=== PATIENT | male | born 1945 | race Caucasian/White ===

== ENCOUNTER → 2019-07-13 09:44 | Outpatient (BNVA) | payer OTHER, SELFPAY | PROVIDERS: Family Provider Emergency Medicine Emergency Medical Services; PCP Emergency Medicine Emergency Medical Services; Visit Provider Specialist | DX: G43.711 Chronic migraine without aura, intractable, with status migrainosus (principal) | CPT/HCPCS: 64615; J0585 ==

== ENCOUNTER 2019-08-11 22:22 | Emergency (ER) | payer OTHER, MEDICARE, SELFPAY ==
[2019-08-11 22:26] VITALS: BP 134/97; PULSE 66; RESP 20; O2SAT 98; BMI 31.4
--- NOTE | 2019-08-11 22:43 | W.ED.MEDCLER ---
HPI - Medical Clearance General Chief complaint: Medical Clearance Stated complaint: weak Time Seen by Provider: 08/11/19 22:43 Source: patient Mode of arrival: ambulatory Limitations: no limitations History of Present Illness HPI Narrative: 73 yo m came to the er pov for dizziness. Onset was tonight. Pt states that he MD complaint: other (dizziness) Related Information Home Medications Medication Instructions Recorded Confirmed aspirin 81 mg tablet,delayed 81 mg PO DAILY tab 07/13/19 08/09/19 release furosemide 40 mg tablet 40 mg PO DAILY tab 07/13/19 08/09/19 gabapentin 300 mg capsule 300 mg PO DAILY cap 07/13/19 08/09/19 nitroglycerin 0.4 mg sublingual 0.4 mg SUBLINGUAL Q5M PRN 07/13/19 08/09/19 tablet pantoprazole 40 mg tablet,delayed 40 mg PO DAILY tab 07/13/19 08/09/19 release tamsulosin 0.4 mg capsule 0.4 mg PO DAILY cap 07/13/19 08/09/19 atorvastatin 80 mg tablet 40 mg PO DAILY tab 08/08/19 08/09/19 onabotulinumtoxinA 100 unit 155 unit SUBCUT .q 12 weeks each 08/08/19 08/09/19 solution for injection acetaminophen 500 mg capsule 500 mg PO Q6H PRN 08/09/19 08/09/19 lisinopril 20 mg tablet 20 mg PO DAILY tab 08/09/19 08/09/19 Previous Rx's Medication Instructions Recorded metoprolol succinate 25 mg 12.5 mg PO DAILY 30 Days #15 tab 08/09/19 tablet,extended release 24 hr Allergies Allergy/AdvReac Type Severity Reaction Status Date / Time codeine Allergy Unknown Unknown Verified 07/13/19 10:51 Course Vital Signs Pulse Rate 66 08/11/19 22:26 Respiratory Rate 20 H 08/11/19 22:26 Blood Pressure 134/97 08/11/19 22:26 Pulse Oximetry 98 08/11/19 22:26 Discharge Plan Discharge Prescriptions: No Action Botox 100 unit recon soln 155 unit SUBCUT .q 12 weeks RF: 0 aspirin [Adult Low Dose Aspirin] 81 mg tablet,delayed release (DR/EC) 81 mg PO DAILY RF: 0 furosemide 40 mg tablet 40 mg PO DAILY RF: 0 gabapentin 300 mg capsule 300 mg PO DAILY RF: 0 nitroglycerin [Nitrostat] 0.4 mg tablet, sublingual 0.4 mg SUBLINGUAL Q5M PRNRF: 0 pantoprazole 40 mg tablet,delayed release (DR/EC) 40 mg PO DAILY RF: 0 tamsulosin 0.4 mg capsule 0.4 mg PO DAILY RF: 0 atorvastatin 80 mg tablet 40 mg PO DAILY RF: 0 lisinopril 20 mg tablet 20 mg PO DAILY RF: 0 acetaminophen 500 mg capsule 500 mg PO Q6H PRNRF: 0 metoprolol succinate 25 mg tablet extended release 24 hr 12.5 mg PO DAILY 30 Days Qty: 15 RF: 6
[2019-08-11 22:46] VITALS: BP 159/83; PULSE 57; RESP 16; O2SAT 92
--- NOTE | 2019-08-11 22:48 | PC.NURSE ---
PATIENT STATES HE HAS BEEN HAVING DIZZY SPELLS FOR THE LAST MONTH AND A HALF, STATES HE HAS SEEN DR CATHERINE IN THE LAST WEEK AND WAS ADVISED TO SEE AN ENT. PATIENT STATES HE IS ON A NEW MEDICINE FOR HIGH HEART RATE PRESCRIBED BY DR CATHERINE. PATIENT STATES HE STARTED FEELING VERY WEAK AND DIZZY TODAY AND DECIDED TO COME INTO THE ED.
--- NOTE | 2019-08-11 22:54 | ED_ITS ---
Entered by Nayeli Medrano, acting as scribe for AmeyaSyderic Dewey DO Aug 11, 2019 22:22 HPI - Dizziness General: Chief Complaint: Medical Clearance Stated Complaint: weak Time Seen by Provider: 08/11/19 22:43 Source: patient and family Mode of arrival: ambulatory Limitations: no limitations History of Present Illness: HPI Narrative: 73 yo m came to the er pov for dizziness. Onset was tonight. Pt states that he woke up about 1 1/2 ago to large sound going off in his head. Pt states that this happened a year ago and he lost all of his hearing out of his right ear. Pt states that with this ringing in his ear he has been having dizziness and some nausea. Pt also states that he is having some mile epigastric pain. MD elicited complaint: dizziness, lightheadedness and other (ringing in head and nausea) Timing: intermittent Severity: mild Description: lightheadedness and off-balance History of similar symptoms: Yes Exacerbating factors: nothing Relieving factors: nothing Associated symptoms: Reports change in hearing, nausea and tinnitus; Denies chest pain, chills, ear discharge or palpitations Review of Systems General: Reports: other (negative unless marked) Const: Denies: fever or chills Eyes: Denies: change in vision or blurry vision ENMT: Reports: Change in hearing and tinnitus; Denies: ear discharge Card: Denies: chest pain, palpitations, irregular heart rhythm, edema, swelling of feet/ankles, shortness of breath on exertion or shortness of breath when lying down Resp: Denies: shortness of breath, productive cough, non-productive cough or wheezing GI: Reports: nausea : Denies: difficulty urinating, painful urination, urinary frequency, urinary urgency or blood in urine Musc: Denies: neck pain, back pain, redness or joint warmth Skin/Breast: Denies: rash, itching or redness Neuro: Reports: dizziness Psych: Denies: anxiety, visual hallucinations or auditory hallucinations PFSH ED PFSH: Statuses (acute, chronic, etc) shown below reflect problem list status as previously entered and may not be historically accurate Family History Other Heart disease Stroke Social History (Reviewed 08/11/19 @ 22:57 by Nayeli Morrow Smoking and tobacco status: former smoker History of recent travel: No Physical Exam Const: GENERAL APPEARANCE: well developed ORIENTATION/CONSCIOUSNESS: Yes oriented to person, Yes oriented to place and Yes oriented to time HENMT: COMMON NORMALS: normocephalic, external ears normal and external nose normal HEAD & SCALP: normocephalic; no scalp tenderness FACE & SINUS: normal facial exam NOSE: external nose normal and no nasal discharge EXTERNAL EAR: Yes external ears normal MOUTH: tongue normal TEETH & GINGIVA: no abnormal tooth and associated gingiva THROAT: posterior oropharynx normal; no peritonsillar mass Eye: COMMON NORMALS: PERRL, EOMs intact bilaterally and conjunctivae normal EYELID: eyelids normal CONJUNCTIVA: Yes conjunctivae normal PUPIL: Yes PERRL Neck/C-Spine: COMMON NORMALS: full ROM GENERAL: No tracheal deviation CERVICAL SPINE: Yes normal cervical lordosis and No cervical spine tenderness Chest: COMMONS NORMALS: inspection of chest normal CHEST: No tenderness Resp: COMMON NORMALS: clear to auscultation bilaterally EFFORT & INSPECTION: No tachypneic, No respiratory distress, No retractions, No uses accessory muscles and No tracheal deviation AUSCULTATION: clear to auscultation bilaterally, no rhonchi, no wheezes and lung sounds not diminished Cardio: COMMON NORMALS: regular rate and regular rhythm RATE: regular rate RHYTHM: regular rhythm HEART SOUNDS: no murmurs PERIPHERAL PULSES: radial pulses present GI: INSPECTION: No abdominal distension AUSCULTATION: No hyperactive bowel sounds and No hypoactive bowel sounds PALPATION: No guarding and No rigid PERCUSSION: no dullness to percussion and no tympanic to percussion Neuro: SENSORIUM/ORIENTATION: Yes oriented to person, Yes oriented to place and Yes oriented to time Psych: COMMON NORMALS: mental status grossly normal Skin: COMMON NORMALS: no rashes or lesions noted GENERAL SKIN EXAM: no rashes or lesions noted Course ED course: 73-year-old man with a triad of hearing loss, significant tinnitus, and vertigo. 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 He does not show signs of ac [place] stroke otherwise. His CT is negative. His laboratory is benign. His symptoms are resolved essentially. We will let him go home on meclizine. Vital Signs: Vital signs: Vital Signs Pulse Rate 56 L 08/12/19 02:16 Respiratory Rate 16 08/12/19 02:16 Blood Pressure 126/79 08/12/19 02:16 Pulse Oximetry 93 08/12/19 02:16 MDM - Dizziness Lab Data: Labs: Lab Results 08/11/19 08/11/19 08/11/19 Range/Units 23:06 23:06 23:06 WBC 5.1 (4.0-10.0) 10^3/ uL RBC 4.19 (4.1-5.3) 10^6/u L Hgb 13.5 (11.7-16.6) g/dL Hct 39.3 L (42.0-52.0) % MCV 93.8 (80-94) fL MCH 32.2 (28.0-34.0) pg MCHC 34.4 (30.0-36.0) g/dL RDW 12.4 (12.1-15.1) % Plt Count 205 (130-400) 10^3/c mm MPV 10.0 (7.4-10.4) fL Neut % (Auto) 49.9 % Lymph % (Auto) 38.3 % [place] % (Auto) 9.2 % Eos % (Auto) 1.8 % Baso % (Auto) 0.8 % Neut # (Auto) 2.6 (1.8-7.7) 10^3/u L Lymph # (Auto) 2.0 (0.8-4.8) 10^3/u L [place] # (Auto) 0.5 (0.2-0.9) 10^3/u L Eos # (Auto) 0.1 (0.0-0.8) 10^3/u L Baso # (Auto) 0.0 (0.0-0.1) 10^3/u L Nucleated RBC % (a uto) 0 % Nucleated RBCs # 0.0 /100WBC PT 12.70 (10.5-13.3) SECO NDS INR 0.92 (0.8-1.2) APTT 28.3 (23.9-36.7) SECO NDS Sodium 133 L (136-145) mmol/L Potassium 4.3 (3.5-5.1) mmol/L Chloride 96 L (98-107) mmol/L Carbon Dioxide 23 (22-29) mmol/L Anion Gap 18.3 (5-19) BUN 17 (8-23) mg/dL Creatinine 1.2 (0.7-1.2) mg/dL Glucose 133 H (65-115) mg/dL Calcium 9.7 (8.5-10.5) mg/dL Total Bilirubin 0.5 (0.15-1.2) mg/dL AST 19 (0-40) U/L ALT 16 (0-41) U/L Alkaline Phosphata se 139 H (40-130) IU/L Troponin T Baselin e (0-15) ng/mL Troponin T 120 Min [place] (0-15) ng/mL Delta Troponin T (0-10) ABS# Total Protein 6.8 (6.6-8.7) g/dL Albumin 3.9 (3.5-5.2) g/dL Globulin 2.9 (1.3-4.6) g/dL Urine Color (Yellow) Urine Appearance (CLEAR) Urine pH (5-7) Ur Specific Gravit y (1.005-1.030) Urine Protein (Negative) Urine Glucose (UA) (Normal) Urine Ketones (Negative) Urine Occult Blood (Negative) Urine Nitrate (Negative) Urine Bilirubin (NEGATIVE) Urine Urobilinogen (Negative) mg/dL Ur Leukocyte Sima ase (Negative) Urine Opiates Scre en (Negative) ng/mL Ur Barbiturates Sc reen (Negative) ng/mL Ur Phencyclidine S crn (Negative) ng/mL Ur Amphetamines Sc reen (Negative) ng/mL U Benzodiazepines Scrn (Negative) ng/mL Urine Cocaine Scre en (Negative) ng/mL U Marijuana (THC) Screen (Negative) ng/mL 08/11/19 08/12/19 08/12/19 Range/Units 23:06 00:07 00:07 WBC (4.0-10.0) 10^3/ uL RBC (4.1-5.3) 10^6/u L Hgb (11.7-16.6) g/dL Hct (42.0-52.0) % MCV (80-94) fL MCH (28.0-34.0) pg MCHC (30.0-36.0) g/dL RDW (12.1-15.1) % Plt Count (130-400) 10^3/c mm MPV (7.4-10.4) fL Neut % (Auto) % Lymph % (Auto) % [place] % (Auto) % Eos % (Auto) % Baso % (Auto) % Neut # (Auto) (1.8-7.7) 10^3/u L Lymph # (Auto) (0.8-4.8) 10^3/u L [place] # (Auto) (0.2-0.9) 10^3/u L Eos # (Auto) (0.0-0.8) 10^3/u L Baso # (Auto) (0.0-0.1) 10^3/u L Nucleated RBC % (a uto) % Nucleated RBCs # /100WBC PT (10.5-13.3) SECO NDS INR (0.8-1.2) APTT (23.9-36.7) SECO NDS Sodium (136-145) mmol/L Potassium (3.5-5.1) mmol/L Chloride (98-107) mmol/L Carbon Dioxide (22-29) mmol/L Anion Gap (5-19) BUN (8-23) mg/dL Creatinine (0.7-1.2) mg/dL Glucose (65-115) mg/dL Calcium (8.5-10.5) mg/dL Total Bilirubin (0.15-1.2) mg/dL AST (0-40) U/L ALT (0-41) U/L Alkaline Phosphata se (40-130) IU/L Troponin T Baselin e 12 (0-15) ng/mL Troponin T 120 Min [place] (0-15) ng/mL Delta Troponin T (0-10) ABS# Total Protein (6.6-8.7) g/dL Albumin (3.5-5.2) g/dL Globulin (1.3-4.6) g/dL Urine Color Yellow (Yellow) Urine Appearance Clear (CLEAR) Urine pH 6 (5-7) Ur Specific Gravit y 1.015 (1.005-1.030) Urine Protein Neg (Negative) Urine Glucose (UA) Norm (Normal) Urine Ketones Negative (Negative) Urine Occult Blood Neg (Negative) Urine Nitrate Negative (Negative) Urine Bilirubin Neg (NEGATIVE) Urine Urobilinogen Norm (Negative) mg/dL Ur Leukocyte Sima ase Negative (Negative) Urine Opiates Scre en Negative (Negative) ng/mL Ur Barbiturates Sc reen Negative (Negative) ng/mL Ur Phencyclidine S crn Negative (Negative) ng/mL Ur Amphetamines Sc reen Negative (Negative) ng/mL U Benzodiazepines Scrn Negative (Negative) ng/mL Urine Cocaine Scre en Negative (Negative) ng/mL U Marijuana (THC) Screen Negative (Negative) ng/mL 08/12/19 Range/Units 00:52 WBC (4.0-10.0) 10^3/ uL RBC (4.1-5.3) 10^6/u L Hgb (11.7-16.6) g/dL Hct (42.0-52.0) % MCV (80-94) fL MCH (28.0-34.0) pg MCHC (30.0-36.0) g/dL RDW (12.1-15.1) % Plt Count (130-400) 10^3/c mm MPV (7.4-10.4) fL Neut % (Auto) % Lymph % (Auto) % [place] % (Auto) % Eos % (Auto) % Baso % (Auto) % Neut # (Auto) (1.8-7.7) 10^3/u L Lymph # (Auto) (0.8-4.8) 10^3/u L [place] # (Auto) (0.2-0.9) 10^3/u L Eos # (Auto) (0.0-0.8) 10^3/u L Baso # (Auto) (0.0-0.1) 10^3/u L Nucleated RBC % (a uto) % Nucleated RBCs # /100WBC PT (10.5-13.3) SECO NDS INR (0.8-1.2) APTT (23.9-36.7) SECO NDS Sodium (136-145) mmol/L Potassium (3.5-5.1) mmol/L Chloride (98-107) mmol/L Carbon Dioxide (22-29) mmol/L Anion Gap (5-19) BUN (8-23) mg/dL Creatinine (0.7-1.2) mg/dL Glucose (65-115) mg/dL Calcium (8.5-10.5) mg/dL Total Bilirubin (0.15-1.2) mg/dL AST (0-40) U/L ALT (0-41) U/L Alkaline Phosphata se (40-130) IU/L Troponin T Baselin e (0-15) ng/mL Troponin T 120 Min [place] 12.58 (0-15) ng/mL Delta Troponin T 0.58 (0-10) ABS# Total Protein (6.6-8.7) g/dL Albumin (3.5-5.2) g/dL Globulin (1.3-4.6) g/dL Urine Color (Yellow) Urine Appearance (CLEAR) Urine pH (5-7) Ur Specific Gravit y (1.005-1.030) Urine Protein (Negative) Urine Glucose (UA) (Normal) Urine Ketones (Negative) Urine Occult Blood (Negative) Urine Nitrate (Negative) Urine Bilirubin (NEGATIVE) Urine Urobilinogen (Negative) mg/dL Ur Leukocyte Sima ase (Negative) Urine Opiates Scre en (Negative) ng/mL Ur Barbiturates Sc reen (Negative) ng/mL Ur Phencyclidine S crn (Negative) ng/mL Ur Amphetamines Sc reen (Negative) ng/mL U Benzodiazepines Scrn (Negative) ng/mL Urine Cocaine Scre en (Negative) ng/mL U Marijuana (THC) Screen (Negative) ng/mL Imaging Data^: CT Head: Radiologist's impression: [place] [address] CT Scan Report Signed Patient: Gerson Reid #: [id number] : 4Acct#:[id number] Age/Sex: 73 / MADM Date: 08/11/19 Loc: ERRoom/Bed: Attending Dr: Ordering Provider/Ordering MD: Syd Hou DO Date of Service: 08/11/19 Procedure(s): CT head wo con* [id number] Accession Number(s): [id number] Report Number: [id number] PROCEDURE INFORMATION: Exam: CT Head Without Contrast Exam date and time: 08/11/2019 11:05 PM Age: 73 years old Clinical indication: Dizziness and other: Buzzing in ears; Additional info: Symptoms of acute stroke TECHNIQUE: Imaging protocol: Computed tomography of the head without contrast. Total DLP: 864.16 mGy-cm Radiation optimization: All CT scans at this facility use at least one of these dose optimization techniques: automated exposure control; mA and/or kV adjustment per patient size (includes targeted exams where dose is matched to clinical indication); or iterative reconstruction. COMPARISON: MRI IAC'S w/wo* [id number] 02/01/2018 10:13 AM FINDINGS: Brain: No acute intracranial hemorrhage or mass effect. There is decreased attenuation in the periventricular white matter, likely from microvascular disease. Suspect small old lacunar infarcts in the basal ganglia/internal capsule regions bilaterally. Old infarct in the left frontal white matter. No definite acute infarct by CT. MRI could be more sensitive/specific for detection, and also for distinguishing between old and subacute infarcts, as clinically directed. Ventricles: Ventricle size is normal for age. Bones/joints: No definite acute skull fracture. Sinuses: Included paranasal sinuses are essentially clear. Mastoid air cells: No significant acute finding. Vasculature: Vascular calcifications in the internal carotid arteries. CT/CT head wo con* [id number] IMPRESSION: 1. No acute intracranial hemorrhage or mass effect. 2. Changes of microvascular disease, and old infarcts, details above. 3. No definite acute infarct by CT, see above. 4. Other findings discussed above. Radiation Dose CTDIVOL = (mGy): DLP = 864.16 (mGy-cm) Dictated By:Carlin Link MD Signed By:Carlin Link MDSigned Date/Time:08/11/192345 DD/ 44 Discharge Plan Discharge Patient Disposition: Home, Self-Care Clinical Impression: Vertigo Condition: Stable Prescriptions: New meclizine 25 mg tablet 25 mg PO TID PRN (Reason: dizziness) Qty: 30 RF: 0 No Action Botox 100 unit recon soln 155 unit SUBCUT .q 12 weeks RF: 0 aspirin [Adult Low Dose Aspirin] 81 mg tablet,delayed release (DR/EC) 81 mg PO DAILY RF: 0 furosemide 40 mg tablet 40 mg PO DAILY RF: 0 gabapentin 300 mg capsule 300 mg PO DAILY RF: 0 nitroglycerin [Nitrostat] 0.4 mg tablet, sublingual 0.4 mg SUBLINGUAL Q5M PRNRF: 0 pantoprazole 40 mg tablet,delayed release (DR/EC) 40 mg PO DAILY RF: 0 tamsulosin 0.4 mg capsule 0.4 mg PO DAILY RF: 0 atorvastatin 80 mg tablet 40 mg PO DAILY RF: 0 lisinopril 20 mg tablet 20 mg PO DAILY RF: 0 acetaminophen 500 mg capsule 500 mg PO Q6H PRNRF: 0 metoprolol succinate 25 mg tablet extended release 24 hr 12.5 mg PO DAILY 30 Days Qty: 15 RF: 6 Discharge Orders: Discharge Order (Routine); Ordered 08/12/19 Ordered By: Syd Hou Referrals: Lee Gordon MD [Physician] - 7-10 days Kingston Noble DO [Primary Care Provider] - Discharge Diet: Advance as tolerated Discharge Activity: Increase activity as tolerated Patient Instructions: Vertigo (ED) Activity Restrictions/Additional Instructions: Return for worsening symptoms despite treatment, mental status changes, weakness to one side, other concerning symptoms. Call the ENT surgery office Wednesday morning for a follow-up appointment. Discharge Date/Time: 08/12/19 02:17 Coding Level of Care Code ED Slot Shift Manager for Chg Fwd The documentation recorded by the Mitchell schreiber Stephanie Lyn, accurately reflects the service I personally performed and the decisions made by Ameya kern Jeremy John, DO Aug 11, 2019 22:22
--- NOTE | 2019-08-11 23:02 | XR_ITS ---
WS: [id number] ONE VIEW CHEST HISTORY: 73 years old Male with dizzy AP upright chest comparison 09/20/2016 FINDINGS: Bilateral lower lung zone increased interstitial markings probably unchanged. No pneumothorax or cost ophrenic angle blunting. No definite interval pulmonary parenchymal opacity. Cardiomegaly and pulmona ry venous congestion unchanged. Thoracic aorta atherosclerosis and tortuosity. No subdiaphragmatic fr ee air. Prior cervical spine fusion. Bilateral glenohumeral joint arthrosis. XR/XR chest 1V portable [id number] IMPRESSION: Bilateral lower lung zone increased interstitial markings may be secondary to i nterstitial scarring and/or recurrent interstitial edema or pneumonia. Correlat e clinically. Otherwise, no interval change from 01/31/2016.
--- NOTE | 2019-08-11 23:03 | CTR_ITS ---
PROCEDURE INFORMATION: Exam: CT Head Without Contrast Exam date and time: 08/11/2019 11:05 PM Age: 73 years old Clinical indication: Dizziness and other: Buzzing in ears; Additional info: Symptoms of acute stroke TECHNIQUE: Imaging protocol: Computed tomography of the head without contrast. Total DLP: 864.16 mGy-cm Radiation optimization: All CT scans at this facility use at least one of these dose optimization techniques: automated exposure control; mA and/or kV adjustment per patient size (includes targeted exams where dose is matched to clinical indication); or iterative reconstruction. COMPARISON: MRI IAC'S w/wo* [id number] 02/01/2018 10:13 AM FINDINGS: Brain: No acute intracranial hemorrhage or mass effect. There is decreased attenuation in the periventricular white matter, likely from microvascular disease. Suspect small old lacunar infarcts in the basal ganglia/internal capsule regions bilaterally. Old infarct in the left frontal white matter. No definite acute infarct by CT. MRI could be more sensitive/specific for detection, and also for distinguishing between old and subacute infarcts, as clinically directed. Ventricles: Ventricle size is normal for age. Bones/joints: No definite acute skull fracture. Sinuses: Included paranasal sinuses are essentially clear. Mastoid air cells: No significant acute finding. Vasculature: Vascular calcifications in the internal carotid arteries. CT/CT head wo con* [id number] IMPRESSION: 1. No acute intracranial hemorrhage or mass effect. 2. Changes of microvascular disease, and old infarcts, details above. 3. No definite acute infarct by CT, see above. 4. Other findings discussed above. Radiation Dose CTDIVOL = (mGy): DLP = 864.16 (mGy-cm)
--- NOTE | 2019-08-11 23:04 | ECG_ITS ---
Measurements Intervals [place] Rate: 55 P: 61 OR: 175 QRS: -62 QRSD: 114 T: 12 QT: 440 QTc: 421 SINUS BRADYCARDIA POSSIBLE ANTERIOR MYOCARDIAL INFARCTION , OF INDETERMINATE AGE [30 ms Q WAVE IN V3/V4, OR R < 0.2 mV IN V4] INFERIOR MYOCARDIAL INFARCTION , OF INDETERMINATE AGE [40+ ms Q WAVE AND/OR ST/T ABNORMALITY IN II/aVF] Compared to ECG 09/10/2016 23:00:23 Myocardial infarct finding now present Atrial fibrillation no longer present Aberrant conduction of supraventricular beat(s) no longer present Ventricular premature complex(es) no longer present Incomplete right bundle-branch block no longer present Left anterior fascicular block no longer present ST (T wave) deviation no longer present Electronically Signed On 08-13-2019 0:17:47 DISEASE EDUCATION SPECIALIST by Chely Joiner M.D. [email or web address]
[2019-08-11 23:15] LABS: Basophils % 0.8 %; Eosinophils # 0.1 10^3/uL (0.0-0.8); Eosinophils % 1.8 %; Hematocrit 39.3 % (42.0-52.0); Hemoglobin 13.5 g/dL (11.7-16.6); Lymphocytes % 38.3 %; Mean Corpuscular HGB Conc 34.4 g/dL (30.0-36.0); Mean Corpuscular Hemoglobin 32.2 pg (28.0-34.0); Mean Corpuscular Volume 93.8 fL (80-94); Monocytes # 0.5 10^3/uL (0.2-0.9); Monocytes % 9.2 %; Neutrophils # 2.6 10^3/uL (1.8-7.7); Neutrophils % 49.9 %; Nucleated Red Blood Cells % 0 %; Platelet Count 205 10^3/cmm (130-400); Red Blood Count 4.19 10^6/uL (4.1-5.3); Red Cell Distribution Width 12.4 % (12.1-15.1); White Blood Count 5.1 10^3/uL (4.0-10.0)
[2019-08-11 23:23] LABS: INR 0.92 (0.8-1.2)
[2019-08-11 23:24] LABS: Partial Thromboplastin Time 28.3 SECONDS (23.9-36.7)
[2019-08-11 23:31] LABS: Alanine Aminotransferase 16 U/L (0-41); Albumin Level 3.9 g/dL (3.5-5.2); Alkaline Phosphatase 139 IU/L (40-130); Anion Gap 18.3 (5-19); Aspartate Amino Transferase 19 U/L (0-40); Blood Urea Nitrogen 17 mg/dL (8-23); Calcium 9.7 mg/dL (8.5-10.5); Carbon Dioxide 23 mmol/L (22-29); Chloride 96 mmol/L (98-107); Globulin 2.9 g/dL (1.3-4.6); Glucose 133 mg/dL (65-115); Potassium 4.3 mmol/L (3.5-5.1); Sodium 133 mmol/L (136-145); Total Bilirubin 0.5 mg/dL (0.15-1.2); Total Protein 6.8 g/dL (6.6-8.7)
[2019-08-11 23:36] VITALS: BP 142/83; PULSE 58; RESP 16; O2SAT 93
[2019-08-11 23:36] LABS: Troponin(5th) Baseline 12 ng/mL (0-15)
[2019-08-12 00:08] VITALS: BP 139/76; PULSE 55; RESP 16; O2SAT 93
[2019-08-12 00:24] LABS: Add Urine Microscopic? NO
[2019-08-12 00:27] LABS: Bilirubin Urine Neg (NEGATIVE); Blood Urine Neg (Negative); Glucose Urine UA Norm (Normal); Ketones Urine Negative (Negative); Leukocyte Esterase Urine Negative (Negative); Nitrate Urine Negative (Negative); Protein Urine Neg (Negative); Specific Gravity, Urine 1.015 (1.005-1.030); Urine Appearance Clear (CLEAR); Urine Color Yellow (Yellow); Urobilinogen Urine Norm (Negative); pH Urine 6 (5-7)
[2019-08-12 00:46] LABS: Amphetamines Screen Urine Negative (Negative); Barbiturates Screen Urine Negative (Negative); Benzodiazepines Screen Urine Negative (Negative); Cocaine Screen Urine Negative (Negative); Opiate Screen Urine Negative (Negative); PCP Screen Urine Negative (Negative); THC Screen Urine Negative (Negative)
[2019-08-12 00:48] VITALS: BP 126/86; PULSE 56; RESP 16; O2SAT 95
[2019-08-12 01:16] LABS: Troponin 5 2HR 12.58 ng/mL (0-15); Troponin 5 2HR Delta 0.58 ABS# (0-10)
[2019-08-12 01:46] VITALS: BP 143/86; PULSE 57; RESP 16; O2SAT 94
[2019-08-12] MEDS: meclizine 25 mg tablet PO (02:15)
[2019-08-12 02:16] VITALS: BP 126/79; PULSE 56; RESP 16; O2SAT 93
--- NOTE | 2019-08-15 09:25 | DCPLANNER ---
environmental department manager had message to schedule a follow up appointment for patient with Dr. Gordon, ENT. environmental department manager called the office of Dr. Gordon, spoke with Nallely, gave clinic patients information. Patient has [facility] insurance, cannot schedule a follow up appointment at this time. environmental department manager called [facility], gave her patients name, and the need for follow up with Dr. Gordon. environmental department manager [facility].
--- NOTE | 2019-08-17 10:03 | DCPLANNER ---
Patient has an appointment scheduled for Friday, August 30, 2019 at 9:[address] Gordon. Clinic will call patient with appointment information.
--- NOTE | 2019-09-01 17:30 | DCPLANNER ---
Patient did attend appointment scheduled for 08.30.[address] Gordon.
== END 2019-08-12 02:17 | disposition home or self-care (01) ==
PROVIDERS: Emergency Provider Emergency Medicine; Family Provider Emergency Medicine Emergency Medical Services; PCP Emergency Medicine Emergency Medical Services
DX: R42 Dizziness and giddiness (principal); Z79.82 Long term (current) use of aspirin; Z87.891 Personal history of nicotine dependence
CPT/HCPCS: 70450; 71045; 80053; 80307; 81003; 84484; 85025; 85610; 85730; 93005; 99284; J8597

== ENCOUNTER → 2019-08-30 08:56 | Outpatient (BNVA) | payer OTHER, MEDICARE, SELFPAY | PROVIDERS: Family Provider Emergency Medicine Emergency Medical Services; PCP Emergency Medicine Emergency Medical Services; Visit Provider Otolaryngology | DX: H91.91 Unspecified hearing loss, right ear (principal); H93.11 Tinnitus, right ear; R42 Dizziness and giddiness; J34.89 Other specified disorders of nose and nasal sinuses; Q67.4 Other congenital deformities of skull, face and jaw; R26.89 Other abnormalities of gait and mobility | CPT/HCPCS: 99203; 99214 ==

== ENCOUNTER → 2019-10-26 09:05 | Outpatient (BNVA) | payer OTHER, SELFPAY | PROVIDERS: Family Provider Emergency Medicine Emergency Medical Services; PCP Emergency Medicine Emergency Medical Services; Visit Provider Specialist | DX: G43.711 Chronic migraine without aura, intractable, with status migrainosus (principal) | CPT/HCPCS: 64615; J0585 ==

== ENCOUNTER 2020-01-03 08:14 | Day surgery (SDC) | payer OTHER, SELFPAY ==
[2020-01-02 10:58] VITALS: BMI 30.1
[2020-01-03 09:00] VITALS: BP 127/80; PULSE 75; RESP 18; TEMP 36.3; O2SAT 99
--- NOTE | 2020-01-03 09:15 | ANES.PREANE2 ---
Pre-Anesthetic Assessment Pre-Anesthetic Assessment: Height/Weight: Height 1.78 m Weight 95.254 kg Temp Pulse Resp BP Pulse Ox 97.4 F L 75 18 127/80 99 01/03/20 09:00 01/03/20 09:00 01/03/20 09:00 01/03/20 09:00 01/03/20 09:00 Preop Diagnosis: Colon Polyps Proposed Procedure: Operation Date: 01/03/20 10:00 Proposed Procedures p COLONOSCOPY 73263/Z86.010(Not Applicable) - Aditya Cohn MD Familial anesthetic complications: None Was Beta Frida taken within 24 hours: N/A Last intake: NPO > 8 hrs Social: Social History: No alcohol and No tobacco Exam: Pre-Anes Outpt Exam: alert, oriented x 3, clear to auscultation bilaterally and regular rate & rhythm Airway: Cervical ROM: WNL MP: 3 Additional comments: Multiple missing teeth CV/HEM: CV/HEM: Afib, HTN and [place] Comments: ascending aortic aneurysm Metabolic: Metabolic: Hyperlipidemia Anesthetic Plan: ASA status: 3 Anesthesia: MAC PFSH Anesthesia PFSH: Medical History Ascending aortic aneurysm Deafness in right ear Deviated nasal septum, congenital H/O ventricular tachycardia History of colon polyps History of ST elevation myocardial infarction (STEMI) Hyperlipidemia Imbalance Nasal lesion Sensorineural hearing loss of left ear Surgical History H/O colonoscopy couple of years ago H/O esophagogastroduodenoscopy years ago H/O foot surgery H/O heart artery stent H/O neck surgery History of cervical spinal surgery History of colonoscopy with polypectomy (~2017) S/P cataract surgery S/P foot surgery S/P PTCA (percutaneous transluminal coronary angioplasty) Family History Father Cancer Mother Cancer Other Heart disease Stroke Denies family history of Anesthesia complication Bleeding disorder Social History Smoking and tobacco status: former smoker Alcohol intake: current Alcohol intake frequency: holidays/special occasions only Alcohol type: beer Lives independently: Yes Marital status: Single Current occupational status: retired History of recent travel: No Data Anesthesia Cardiac Studies: No Data to Display
--- NOTE | 2020-01-03 09:42 | W.PM.OPSUD ---
Surgery/Procedure H&P Update DATE OF PROCEDURE: January 03, 2020 DATE H&P PERFORMED: 12/21/19 H&P UPDATE INFORMATION: I have reviewed H&P completed within last 30 days, I have examined patient prior to procedure and No changes to prior documentation PREOP DIAGNOSIS: Colon Polyps PRIMARY INDICATION FOR PROCEDURE: The same PLANNED PROCEDURE: Operation Date: 01/03/20 10:00 Proposed Procedures p COLONOSCOPY [id number]/Z86.010(Not Applicable) - Aditya Cohn MD
[2020-01-03 10:04] VITALS: BP 112/67; PULSE 69; RESP 16; TEMP 36.9; O2SAT 95
--- NOTE | 2020-01-03 10:08 | ANE.PACU2 ---
Inpatient post-anesthesia follow up: Airway intact: Yes Vital signs: Temperature 97.4 F Pulse Rate 75 Respiratory Rate 18 Blood Pressure 127/80 Pulse Oximetry 99 Oxygen Delivery Me thod Room Air Oxygen Flow Rate Fraction of Inspir ed Oxygen Hydration adequate: Yes Nausea and vomiting: No Mental status: Baseline
[2020-01-03] MEDS: sodium chloride 0.9% 1,000 ML 30 ML IV (10:19)
== END 2020-01-03 10:30 | disposition home or self-care (01) ==
PROVIDERS: PCP Emergency Medicine Emergency Medical Services; Visit Provider Surgery
PROC: 0DJD8ZZ Inspection of Lower Intestinal Tract, Via Natural or Artificial Opening Endoscopic (ICD-10-PCS; CPT 45378; principal; 2020-01-03 10:00)
DX: Z12.11 Encounter for screening for malignant neoplasm of colon (principal); Z86.010 Personal history of colon polyps; D12.2 Benign neoplasm of ascending colon; K57.30 Diverticulosis of large intestine without perforation or abscess without bleeding; I25.2 Old myocardial infarction; Z87.891 Personal history of nicotine dependence
CPT/HCPCS: 12345; 45380; 88305; J2704; J7030

== ENCOUNTER → 2020-01-18 08:26 | Outpatient (BNVA) | payer OTHER, SELFPAY | PROVIDERS: Family Provider Emergency Medicine Emergency Medical Services; PCP Emergency Medicine Emergency Medical Services; Visit Provider Specialist | DX: G43.711 Chronic migraine without aura, intractable, with status migrainosus (principal); Z87.891 Personal history of nicotine dependence | CPT/HCPCS: 64615; J0585 ==

== ENCOUNTER → 2020-04-11 08:14 | Outpatient (BNVA) | payer OTHER, SELFPAY | PROVIDERS: Family Provider Emergency Medicine Emergency Medical Services; PCP Emergency Medicine Emergency Medical Services; Visit Provider Specialist | DX: G43.711 Chronic migraine without aura, intractable, with status migrainosus (principal); I25.2 Old myocardial infarction; Z87.891 Personal history of nicotine dependence | CPT/HCPCS: 64615; J0585 ==

== ENCOUNTER → 2020-07-11 08:05 | Outpatient (BNVA) | payer OTHER, SELFPAY | PROVIDERS: Family Provider Emergency Medicine Emergency Medical Services; PCP Emergency Medicine Emergency Medical Services; Visit Provider Specialist | DX: G43.711 Chronic migraine without aura, intractable, with status migrainosus (principal); Z87.891 Personal history of nicotine dependence | CPT/HCPCS: 64615; J0585 ==

== ENCOUNTER → 2020-10-03 08:11 | Outpatient (BNVA) | payer OTHER, SELFPAY | PROVIDERS: Family Provider Emergency Medicine Emergency Medical Services; PCP Emergency Medicine Emergency Medical Services; Visit Provider Specialist | DX: G43.711 Chronic migraine without aura, intractable, with status migrainosus (principal); Z87.891 Personal history of nicotine dependence | CPT/HCPCS: 64615; J0585 ==

== ENCOUNTER → 2020-10-14 11:50 | Outpatient (BNVA) | payer OTHER, SELFPAY | PROVIDERS: Family Provider Emergency Medicine Emergency Medical Services; PCP Emergency Medicine Emergency Medical Services; Referring Provider Emergency Medicine Emergency Medical Services; Visit Provider Specialist | DX: M19.032 Primary osteoarthritis, left wrist (principal) | CPT/HCPCS: 73110 ==

== ENCOUNTER → 2020-12-26 08:02 | Outpatient (BNVA) | payer OTHER, SELFPAY | PROVIDERS: Family Provider Emergency Medicine Emergency Medical Services; PCP Emergency Medicine Emergency Medical Services; Visit Provider Specialist | DX: G43.709 Chronic migraine without aura, not intractable, without status migrainosus (principal); Z87.891 Personal history of nicotine dependence | CPT/HCPCS: 64615; J0585 ==

== ENCOUNTER → 2021-03-27 08:46 | Outpatient (BNVA) | payer OTHER, SELFPAY | PROVIDERS: Family Provider Emergency Medicine Emergency Medical Services; PCP Emergency Medicine Emergency Medical Services; Visit Provider Specialist | DX: G43.709 Chronic migraine without aura, not intractable, without status migrainosus (principal); Z87.891 Personal history of nicotine dependence | CPT/HCPCS: 64615; J0585 ==

== ENCOUNTER → 2021-06-19 07:55 | Outpatient (BNVA) | payer OTHER, SELFPAY | PROVIDERS: Family Provider Emergency Medicine Emergency Medical Services; PCP Emergency Medicine Emergency Medical Services; Visit Provider Specialist | DX: G43.711 Chronic migraine without aura, intractable, with status migrainosus (principal) | CPT/HCPCS: 64615; J0585 ==

== ENCOUNTER → 2021-09-11 07:56 | Outpatient (BNVA) | payer OTHER, SELFPAY | PROVIDERS: Family Provider Emergency Medicine Emergency Medical Services; PCP Emergency Medicine Emergency Medical Services; Visit Provider Specialist | DX: G43.711 Chronic migraine without aura, intractable, with status migrainosus (principal) | CPT/HCPCS: 64615; J0585 ==

== ENCOUNTER → 2021-09-12 09:15 | Outpatient (BNVA) | payer OTHER, SELFPAY | PROVIDERS: Family Provider Emergency Medicine Emergency Medical Services; PCP Emergency Medicine Emergency Medical Services; Visit Provider Internal Medicine Cardiovascular Disease | DX: I25.10 Atherosclerotic heart disease of native coronary artery without angina pectoris (principal); I10 Essential (primary) hypertension; E78.2 Mixed hyperlipidemia | CPT/HCPCS: 99214 ==

== ENCOUNTER → 2021-12-04 07:33 | Outpatient (BNVA) | payer OTHER, SELFPAY | PROVIDERS: Family Provider Emergency Medicine Emergency Medical Services; PCP Emergency Medicine Emergency Medical Services; Visit Provider Specialist | DX: G43.711 Chronic migraine without aura, intractable, with status migrainosus (principal) | CPT/HCPCS: 64615; J0585 ==

== ENCOUNTER → 2022-02-26 07:33 | Outpatient (BNVA) | payer OTHER, SELFPAY | PROVIDERS: Family Provider Emergency Medicine Emergency Medical Services; PCP Emergency Medicine Emergency Medical Services; Visit Provider Specialist | DX: G43.711 Chronic migraine without aura, intractable, with status migrainosus (principal) | CPT/HCPCS: 64615; J0585 ==

== ENCOUNTER → 2022-03-23 13:52 | Outpatient (BNVA) | payer OTHER, SELFPAY | PROVIDERS: Family Provider Emergency Medicine Emergency Medical Services; PCP Emergency Medicine Emergency Medical Services; Visit Provider Internal Medicine Cardiovascular Disease | DX: I25.10 Atherosclerotic heart disease of native coronary artery without angina pectoris (principal); I10 Essential (primary) hypertension | CPT/HCPCS: 99214 ==

== ENCOUNTER → 2022-05-21 07:56 | Outpatient (BNVA) | payer OTHER, SELFPAY | PROVIDERS: Family Provider Emergency Medicine Emergency Medical Services; PCP Emergency Medicine Emergency Medical Services; Visit Provider Specialist | DX: G43.711 Chronic migraine without aura, intractable, with status migrainosus (principal) | CPT/HCPCS: 64615; 95911; J0585 ==

== ENCOUNTER → 2022-08-13 08:03 | Outpatient (BNVA) | payer OTHER, SELFPAY | PROVIDERS: Family Provider Emergency Medicine Emergency Medical Services; PCP Emergency Medicine Emergency Medical Services; Visit Provider Specialist | DX: G43.711 Chronic migraine without aura, intractable, with status migrainosus (principal) | CPT/HCPCS: 64615; J0585 ==

== ENCOUNTER → 2022-09-02 13:39 | Outpatient (BNVA) | payer OTHER, SELFPAY | PROVIDERS: Family Provider Emergency Medicine Emergency Medical Services; PCP Emergency Medicine Emergency Medical Services; Visit Provider Nurse Practitioner Family | DX: I48.91 Unspecified atrial fibrillation (principal); I25.2 Old myocardial infarction; Z79.82 Long term (current) use of aspirin | CPT/HCPCS: 93005; 99214 ==

== ENCOUNTER 2022-09-04 11:56 | Inpatient (IN) | payer OTHER, SELFPAY ==
[2022-09-04] VITALS (86 sets, daily range): BP systolic 82–155; BP diastolic 64–103; PULSE 53–157; RESP 11–33; TEMP 36.5–36.6; O2SAT 86–100; BMI 28.8
--- NOTE | 2022-09-04 12:02 | ED_ITS ---
HPI - SOB/Dyspnea General: Chief Complaint: Arrhythmia/Palpitations Stated Complaint: SOB/ WEAKNESS Time Seen by Provider: 09/04/22 12:01 History of Present Illness: HPI Narrative: Mr. Reid is a 76-year-old gentleman with history of hearing loss, hypertens ion, hyperlipidemia, headaches, CAD, atrial fibrillation presenting to the emergency department due to low blood pressure and high heart rate. He reports feeling with heart rate trouble for a number of weeks now however over the past week he has had marked change with persistent elevated heart rate despite medication. He notes associated chest pressure, exertional dyspnea, lightheadedness. Additionally he has had some dark stools and mild abdominal pain on the left. Overall course of symptoms has persisted. Intensity is moderate to severe. Worse with exertion. No other specific changes in health, exacerbating, or alleviating factors identified. Onset (ago): day(s) Timing: constant Severity: moderate Exacerbating factors: exertion Relieving factors: nothing Known history of: congestive heart failure and other Associated symptoms: Reports abdominal pain, chest pain, dizziness and other Review of Systems General: Reports: 10 or more systems reviewed and unremarkable except in HPI and below Card: Reports: chest pain GI: Reports: abdominal pain Neuro: Reports: dizziness PFS ED PFSH: Medical History Ascending aortic aneurysm Atrial fibrillation Deafness in right ear Deviated nasal septum, congenital H/O ventricular tachycardia History of colon polyps History of nonmelanoma skin cancer History of ST elevation myocardial infarction (STEMI) Hyperlipidemia Imbalance Nasal lesion Sensorineural hearing loss of left ear Surgical History H/O colonoscopy couple of years ago H/O esophagogastroduodenoscopy years ago H/O foot surgery H/O heart artery stent H/O neck surgery History of cervical spinal surgery History of colonoscopy with polypectomy (~2017) History of colonoscopy with polypectomy (~12/2019) S/P cataract surgery S/P foot surgery S/P PTCA (percutaneous transluminal coronary angioplasty) Family History Father Cancer Mother Cancer Other Heart disease Stroke Denies family history of Anesthesia complication Bleeding disorder Social History Smoking and tobacco status: never smoked Alcohol intake: current Alcohol intake frequency: holidays/special occasions only Alcohol type: beer Lives independently: Yes Marital status: Single Current occupational status: retired Physical Exam Const: COMMON NORMALS: alert GENERAL APPEARANCE: cooperative and well developed HENMT: COMMON NORMALS: normocephalic and atraumatic HEAD & SCALP: normocephalic and atraumatic Eye: COMMON NORMALS: conjunctivae normal CONJUNCTIVA: Yes conjunctivae normal SCLERA: sclerae normal Neck/C-Spine: COMMON NORMALS: supple GENERAL: Yes trachea midline Resp: COMMON NORMALS: clear to auscultation bilaterally EFFORT & INSPECTION: Yes able to speak in complete sentences AUSCULTATION: clear to auscultation bilaterally Cardio: RATE: tachycardic RHYTHM: abnormal rhythm irregularly irregular GI: COMMON NORMALS: Soft to palpation PALPATION: Yes Soft to palpation, Yes Tenderness to palpation present (GI) Details: LLQ, No Guarding due to palpation present (GI) and No Rigid due to palpation Extremity: GENERAL: Yes normal exam except as noted and No edema Neuro: COMMON NORMALS: moves all extremities SENSORIUM/ORIENTATION: Yes alert and No Orientation impaired Psych: COMMON NORMALS: mental status grossly normal and Normal thought process present THOUGHT PROCESS: Normal thought process present Course Vital Signs: Vital signs: Vital Signs Temperature 98.7 F 09/06/22 15:00 Pulse Rate 65 09/06/22 15:00 Respiratory Rate 15 09/06/22 12:45 Blood Pressure 128/77 09/06/22 15:00 Pulse Oximetry 97 09/06/22 15:00 Oxygen Delivery Me thod 09/06/22 15:00 Oxygen Flow Rate 2 09/05/22 20:12 MDM - SOB/Dyspnea Medical Decision Making 76-year-old gentleman presenting with shortness of breath and generalized weakness with concern for GI bleed. Exam as above. Patient is nontoxic. Abdominal tenderness without evidence of acute surgical abdomen. EKG demonstrates atrial fibrillation with rapid ventricular response and interv entricular conduction delay, no STEMI. Labs show no leukocytosis, macrocytic anemia is not significantly off from baseline. Metabolic panel without acute derangement to explain symptoms. Negative range 2-hour delta troponin. No evidence of UTI. Chest x-ray with pulmonary vascular congestion. During ED course patient treated with IV fluids, Cardizem, analgesia, and subsequently Cardizem drip for recurrence of uncontrolled rate despite bolus dosing. Most likely etiology of patient's symptoms is pulmonary vascular congestion and atrial fibrillation with rapid ventricular response. The results of ED evaluation were discussed with the patient including plan for admission due to requirement for level of care not available if discharged to prevent significant worsening/deterioration. Patient agreeable with plan. Discussed with hospitalist service who was agreeable to admit patient. Medical Records I reviewed the patient's medical records. Lab Data I reviewed the patient's lab results. 09/06/22 03:50 09/06/22 03:50 Labs/Radiology: Radiology Impressions Chest X-Ray 09/04/22 12:08 IMPRESSION: Imaging findings suggestive of pulmonary congestion. Pneumonia should be excluded clinically. Laboratory Results WBC 5.7 10^3/uL (4.0-10.0) 09/04/22 12: RBC 3.30 10^6/uL (4.1-5.3) L 09/04/22 12:23 Hgb 11.0 g/dL (11.7-16.6) L 09/04/22 12:23 Hct 33.0 % (42.0-52.0) L 09/04/22 12: MCV 100.0 fl (80-94) H 09/04/22 12:23 MCH 33.3 pg (28.0-34.0) 09/04/22 12: MCHC 33.3 g/dL (30.0-36.0) 09/04/22 12: RDW 13.6 % (12.1-15.1) 09/04/22 12:23 Plt Count 218 10^3/cmm (130-400) 09/04/22 12:23 MPV 10.3 fL (7.4-10.4) 09/04/22 12:23 Neut % (Auto) 67.4 % 09/04/22 12:23 Lymph % (Auto) 20.5 % 09/04/22 12:23 Dillon % (Auto) 10.5 % 09/04/22 12:23 Eos % (Auto) 1.0 % 09/04/22 12:23 Baso % (Auto) 0.3 % 09/04/22 12:23 Neut # (Auto) 3.85 10^3/uL (1.8-7.7) 09/04/22 12:23 Lymph # (Auto) 1.2 10^3/uL (0.8-4.8) 09/04/22 12:23 Dillon # (Auto) 0.6 10^3/uL (0.2-0.9) 09/04/22 12:23 Eos # (Auto) 0.1 10^3/uL (0.0-0.8) 09/04/22 12:23 Baso # (Auto) 0.0 10^3/uL (0.0-0.1) 09/04/22 12:23 Nucleated RBC % (auto) 0 % 09/04/22 12: Nucleated RBCs # 0.0 /100WBC 09/04/22 12:23 Sodium 135 mmol/L (136-145) L 09/04/22 12:23 Potassium 4.0 mmol/L (3.5-5.1) 09/04/22 12:23 Chloride 99 mmol/L (98-107) 09/04/22 12:23 Carbon Dioxide 23 mmol/L (22-29) 09/04/22 12:23 Anion Gap 17.0 (5-19) 09/04/22 12:23 BUN 19 mg/dL (8-23) 09/04/22 12:23 Creatinine 1.0 mg/dL (0.7-1.2) 09/04/22 12:23 GFR Calculation Not Reportable 09/04/22 12:23 Glucose 116 mg/dL (65-115) H 09/04/22 12:23 Calculated Osmolality 283 mOsm/kg (285-295) L 09/04/22 12:23 Calcium 8.9 mg/dL (8.5-10.5) 09/04/22 12:23 Magnesium 1.8 mg/dL (1.7-2.3) 09/04/22 12:23 Total Bilirubin 0.5 mg/dL (0.15-1.2) 09/04/22 12:23 AST 12 U/L (0-40) 09/04/22 12:23 ALT 9 U/L (0-41) 09/04/22 12:23 Alkaline Phosphatase 126 U/L (40-130) 09/04/22 12:23 Troponin T Baseline 110 ng/L (0-15) H* 09/04/22 12:23 Troponin T 120 Minute 100.2 ng/L (0-15) H 09/04/22 14:07 Delta Troponin T -9.8 ABS# (0-10) L 09/04/22 14:07 NT-Pro-B Natriuret Pep 2875 pg/mL (0-450) H 09/04/22 12:23 Total Protein 6.5 g/dL (6.6-8.7) L 09/04/22 12:23 Albumin 3.6 g/dL (3.5-5.2) 09/04/22 12: Globulin 2.9 g/dL (1.3-4.6) 09/04/22 12: TSH 1.11 uIU/mL (0.27-4.20) 09/04/22 12:23 Urine Color Yellow (Yellow) 09/04/22 15:52 Urine Appearance Clear (CLEAR) 09/04/22 15:52 Urine pH 5 (5-7) 09/04/22 15:52 Ur Specific [place] 1.020 (1.005-1.030) 09/04/22 15:52 Urine Protein Neg (Negative) 09/04/22 15:52 Urine Glucose (UA) Norm (Normal) 09/04/22 15:52 Urine Ketones Negative (Negative) 09/04/22 15:52 Urine Blood Neg (Negative) 09/04/22 15:52 Urine Nitrate Negative (Negative) 09/04/22 15:52 Urine Bilirubin Neg (Negative) 09/04/22 15:52 Urine Urobilinogen Neg mg/dL (Negative) 09/04/22 15:52 Ur Leukocyte Esterase Negative (Negative) 09/04/22 15:52 Blood Type B Negative 09/04/22 12:26 Rho(D) Type Negative 09/04/22 12:26 Antibody Screen Negative 09/04/22 12:26 Critical Care Time Critical Care Time: Critical Care Time: Yes Total Critical Care Time: 35 Attestation: Due to a high probability of clinically significant, possibly life threatening deterioration, the patient required my highest level of attention and preparedness to intervene emergently and I personally spent this critical care time directly and personally managing the patient. This critical care time included obtaining a history; examining the patient; pulse oximetry; ordering and review of laboratory and imaging studies; arranging urgent treatment with development of a management plan; evaluation of patient's response to treatment; frequent reassessment; and, discussions with other providers as applicable. It was exclusive of separately billable procedures. Primary system involved is cardiac Discharge Plan Discharge Patient Disposition: Admitted As Inpatient Admit Provider: Rekha Morin Clinical Impression: Atrial fibrillation with RVR, Pulmonary edema Condition: Stable Discharge Diet: Usual diet Discharge Activity: Resume usual activity Coding Level of Care Code ED High School Music Director for Oscar Robles
--- NOTE | 2022-09-04 12:08 | XRR_ITS ---
PROCEDURE INFORMATION: Exam: XR Chest Exam date and time: 09/04/2022 12:11 PM Age: 76 years old Clinical indication: Shortness of breath; Prior surgery; Surgery type: Heart stents; Patient HX: History--sob, weakness, tachycardia, cp, pain in upper abd TECHNIQUE: Imaging protocol: Radiologic exam of the chest. Views: 1 view. COMPARISON: CR XR chest 1V portable [id number] 08/11/2019 11:28 PM FINDINGS: Lungs: Low lung volumes. There is increased interstitial markings and haziness of the lungs, which in the setting of cardiomegaly is suggestive of pulmonary congestion. Pneumonia should be excluded clinically. Pleural spaces: Unremarkable. No pleural effusion. No pneumothorax. Heart/Mediastinum: Stable cardiomediastinal silhouette. Bones/joints: Cervical spine fusion hardware noted. XR/XR chest 1V portable [id number] IMPRESSION: Imaging findings suggestive of pulmonary congestion. Pneumonia should be excluded clinically.
--- NOTE | 2022-09-04 12:27 | ECG_ITS ---
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 Measurements Intervals [place] Rate: 133 P: 0 [place]: 0 QRS: -59 QRSD: 122 T: 65 QT: 324 QTc: 483 Interpretive Statements ATRIAL FIBRILLATION WITH RAPID VENTRICULAR RESPONSE LEFT ANTERIOR FASCICULAR BLOCK [QRS AXIS <= -45, QR IN I, RS IN II] POSSIBLE ANTERIOR MYOCARDIAL INFARCTION , OF INDETERMINATE AGE [30 ms Q WAVE IN V3/V4, OR R < 0.2 mV IN V4] INFERIOR MYOCARDIAL INFARCTION , PROBABLY OLD [40+ ms Q WAVE AND/OR ST/T ABNORMALITY IN II/aVF] Compared to ECG 08/11/2019 23:41:16 Left anterior fascicular block now present Sinus bradycardia no longer present Myocardial infarct finding still present Electronically Signed On 09-04-2022 21:44:52 CONTINUITY EDITOR by Yoko Michael M.D. [id number]
[2022-09-04 12:44] LABS: Basophils % 0.3 %; Eosinophils # 0.1 10^3/uL (0.0-0.8); Lymphocytes # 1.2 10^3/uL (0.8-4.8); Lymphocytes % 20.5 %; Mean Corpuscular HGB Conc 33.3 g/dL (30.0-36.0); Mean Corpuscular Hemoglobin 33.3 pg (28.0-34.0); Mean Platelet Volume 10.3 fL (7.4-10.4); Monocytes # 0.6 10^3/uL (0.2-0.9); Monocytes % 10.5 %; Neutrophils # 3.85 10^3/uL (1.8-7.7); Neutrophils % 67.4 %; Nucleated Red Blood Cells % 0 %; Platelet Count 218 10^3/cmm (130-400); Red Cell Distribution Width 13.6 % (12.1-15.1); White Blood Count 5.7 10^3/uL (4.0-10.0)
[2022-09-04] MEDS: dilTIAZem 5 mg/mL SDV 5 mL 20 MG IVP ×2 (12:45→14:08)
[2022-09-04] MEDS: sodium chloride 0.9% 500 ML IV (12:45)
[2022-09-04 13:10] LABS: Troponin(5th) Baseline 110 ng/L (0-15)
[2022-09-04 13:16] LABS: Alanine Aminotransferase 9 U/L (0-41); Albumin Level 3.6 g/dL (3.5-5.2); Alkaline Phosphatase 126 U/L (40-130); Aspartate Amino Transferase 12 U/L (0-40); Blood Urea Nitrogen 19 mg/dL (8-23); Calcium 8.9 mg/dL (8.5-10.5); Carbon Dioxide 23 mmol/L (22-29); Chloride 99 mmol/L (98-107); Globulin 2.9 g/dL (1.3-4.6); Glucose 116 mg/dL (65-115); Magnesium 1.8 mg/dL (1.7-2.3); NT Pro B Type Natriuretic Pept 2875 pg/mL (0-450); Osmolality Calculated 283 mOsm/kg (285-295); Sodium 135 mmol/L (136-145); Thyroid Stimulating Hormone 1.11 uIU/mL (0.27-4.20); Total Bilirubin 0.5 mg/dL (0.15-1.2); Total Protein 6.5 g/dL (6.6-8.7)
[2022-09-04] MEDS: dilTIAZem 100 MG in sodium chloride 0.9% (add-van) 100 ML IV (14:08)
--- NOTE | 2022-09-04 14:35 | ECG_ITS ---
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 Measurements Intervals [place] Rate: 97 P: 0 [place]: 0 QRS: -59 QRSD: 114 T: 15 QT: 379 QTc: 484 Interpretive Statements ATRIAL FIBRILLATION LEFT ANTERIOR FASCICULAR BLOCK [QRS AXIS <= -45, QR IN I, RS IN II] INFERIOR MYOCARDIAL INFARCTION , PROBABLY OLD [40+ ms Q WAVE AND/OR ST/T ABNORMALITY IN II/aVF] Compared to ECG 09/04/2022 12:27:32 No significant changes Electronically Signed On 09-04-2022 22:00:52 MENTAL HEALTH COORDINATOR by Yoko Michael M.D. [id number]
[2022-09-04 14:40] LABS: Troponin 5 2HR Delta -9.8 ABS# (0-10)
[2022-09-04 14:41] LABS: Troponin 5 2HR 100.2 ng/L (0-15)
--- NOTE | 2022-09-04 15:04 | PC.NURSE ---
PT'S SON IN ROOM AND IS AWARE THAT PT IS BEING ADMITTED FOR AFIB ON CARDIZEM DRIP. DOES NOT HAVE ANY QUESTIONS AT THIS TIME.
[2022-09-04] MEDS: fentaNYL 50 mcg/mL INJ 2mL IVP (15:31)
[2022-09-04] MEDS: dilTIAZem 5 mg/mL SDV 5 mL 10 MG IVP (16:09)
--- NOTE | 2022-09-04 17:30 | P.HP_ITS ---
Providers/Chief Complaint Admitting Physician: Rekha Morin MD Primary Care Provider: Kingston Noble DO Chief Complaint: SOB/ WEAKNESS History of Present Illness Chris Reid is a 76 year old male PMHx of HTN, HLD, CAD, recurrent orthostasis and syncope, A-fib with RVR diagnosed on a recent visit with cardiology on September 02, 2022. He was started on Cardizem 30 mg 3 times daily for rate control and Eliquis for anticoagulation. He presented to the emergency room because of complaints of dizziness, several low blood pressure recordings at home with systolic blood pressure between 50 to 60 mmHg. His heart rate at the same time has been high in the 1 60-1 70 range. He has also been complaining of intermittent chest pain over the past week. He is extremely hard of hearing therefore history is limited, his son assists with a lot of the history taking. On arrival at the ER patient was in A-fib with RVR with heart rate between 160 to 170 bpm. He was started on a Cardizem drip, however in spite of being on Cardizem at least over the last 2 hours his heart rate is still at 140 bpm. He is being switched to amiodarone infusion now as his systolic blood pressure is ranging between 80-90 systolic. At this present time patient also complains of shortness of breath he has a new oxygen requirement of 2 L/min supplemental O2, typically does not use oxygen at home. His son reports they have also noted edema over bilateral lower extremities Review of Systems General: Reports: 10 or more systems reviewed and unremarkable except in HPI and below Const: Denies: fever(s), chills or body aches Eyes: Denies: change in vision, blurry vision or photophobia ENMT: Reports: hoarseness; Denies: throat pain, enlarged tonsils, odynophagia or nasal congestion Card: Reports: chest pain, palpitations and irregular heart rhythm; Denies: edema, swelling of feet/ankles, lightheadedness, pre-syncope, dyspnea on exertion or orthopnea Resp: Denies: dyspnea, productive cough, non-productive cough, wheezing, stridor, pain on inspiration, change in phlegm color, hemoptysis or chest congestion GI: Denies: abdominal pain, nausea, vomiting, hematemesis, coffee ground emesis, dysphagia, heartburn, diarrhea, constipation, GI cramping, change in stool character, hematochezia or melena : Denies: flank pain, dysuria, urinary frequency, urinary urgency, urinary hesitancy or hematuria Musc: Denies: neck pain, back pain, extremity pain, joint swelling, joint warmth or deformity Neuro: Denies: headache(s), numbness in extremities, weakness in extremities, sensory changes, difficulty walking, frequent falls, dizziness, vertigo, behavioral changes, Slurred speech present or seizure-like activity Psych: Denies: anxiety, depression, suicidal ideation or homicidal ideation Endo: Denies: polyuria, polydipsia, tired all the time, cold intolerance or hot flashes Edwin/Lymph: Denies: easy bruising or easy bleeding Medications/Allergies Home Medications Medication Instructions Recorded Confirmed Last Taken Type aspirin 81 mg tablet,delayed 81 mg PO DAILY 07/13/19 09/04/22 09/04/22 History release (Adult Low Dose Aspirin) furosemide 40 mg tablet 40 mg PO DAILY 07/13/19 09/04/22 09/04/22 History gabapentin 300 mg capsule 300 mg PO QPM 07/13/19 09/04/22 09/03/22 History nitroglycerin 0.4 mg sublingual 0.4 mg sublingual Q5M PRN Chest 07/13/19 0 09/04/22 Unknown History tablet (Nitrostat) Pain pantoprazole 40 mg tablet,delayed 20 mg PO DAILY 07/13/19 09/04/22 09/04/22 History release tamsulosin 0.4 mg capsule 0.4 mg PO QPM 07/13/19 09/04/22 09/04/22 History atorvastatin 80 mg tablet 40 mg PO QPM 08/08/19 09/04/22 09/03/22 History onabotulinumtoxinA 100 unit 155 unit SUBCUT .q 12 weeks 08/08/19 09/04/22 Unknown History solution for injection (Botox) acetaminophen 500 mg tablet 1,000 mg PO QID PRN fever or pain 03/04/20 09/04/22 Unknown History (Tylenol Extra Strength) lisinopril 20 mg tablet 10 mg PO DAILY 03/04/20 09/04/22 09/03/22 History meclizine 25 mg tablet 25 mg PO TID PRN dizziness #270 02/18/21 09/04/22 09/04/22 Rx tabs apixaban 5 mg tablet 5 mg PO BID #180 tabs 09/02/22 09/04/22 09/03/22 Rx diltiazem HCl 30 mg tablet 30 mg PO TID #60 tabs 09/02/22 09/04/22 09/03/22 Rx Allergies Allergy/AdvReac Type Severity Reaction Status Date / Time codeine Allergy Unknown Unconscious Verified 09/04/22 13:21 /syncope hydrochlorothiazide AdvReac hypotension Verified 09/04/22 13:21 PFSH Acute PFSH: Medical History Ascending aortic aneurysm Atrial fibrillation Deafness in right ear Deviated nasal septum, congenital H/O ventricular tachycardia History of colon polyps History of nonmelanoma skin cancer History of ST elevation myocardial infarction (STEMI) Hyperlipidemia Imbalance Nasal lesion Sensorineural hearing loss of left ear Surgical History H/O colonoscopy couple of years ago H/O esophagogastroduodenoscopy years ago H/O foot surgery H/O heart artery stent H/O neck surgery History of cervical spinal surgery History of colonoscopy with polypectomy (~2017) History of colonoscopy with polypectomy (~12/2019) S/P cataract surgery S/P foot surgery S/P PTCA (percutaneous transluminal coronary angioplasty) Family History Father Cancer Mother Cancer Other Heart disease Stroke Denies family history of Anesthesia complication Bleeding disorder Social History Smoking and tobacco status: never smoked Alcohol intake: current Alcohol intake frequency: holidays/special occasions only Alcohol type: beer Lives independently: Yes Marital status: Single Current occupational status: retired Vitals/I&O/Wt Last Vital Signs Temp 97.8 F 09/05/22 07:47 Pulse 69 09/05/22 08:27 Resp 14 09/05/22 08:27 BP 139/90 09/05/22 08:27 Pulse Ox 99 09/05/22 08:27 O2 Del Method 09/05/22 07:48 O2 Flow Rate 2 09/05/22 07:48 09/04/22 09/05/22 09/05/22 22:59 06:59 14:59 Intake Total 316.833 / 816.833 687.18 / 1504.013 Output Total 480 / 480 600 / 1080 Balance -163.167 / 336.833 87.18 / 424.013 Weight last 48 hrs Weight 88.451 kg Physical Exam Narrative: General: No acute distress, AO x3, HEENT: PERRLA, pupils bilaterally equal and reactive, pallors not present Chest: scattered Rales on auscultation CVS: S1-S2 irregular, tachycardic Abdomen: Soft, nontender, no organomegaly, bowel sounds present Neuro: No focal deficits, no facial deformity, AO x3, power 5/5 in all limbs Data 09/05/22 02:46 09/05/22 02:46 Micro: Microbiology 09/04/22 12:23 Blood Culture - Preliminary Blood SPECIMEN COLLECTED 09/04/22 12:26 Blood Culture - Preliminary Blood SPECIMEN COLLECTED A&P Assessment and plan (1) Atrial fibrillation with RVR: patient presenting with A-fib with RVR with heart rate ranging between 1 60-1 70 together with soft systolic blood pressure between 80-90. Discontinue Cardizem infusion Start amiodarone infusion 150 mg bolus over 10 minutes followed by 1 mg/min over next 6 hours and then titrate down Hold Eliquis for now, changed to Lovenox 1 mg/kg subcutaneous every 12 hours Holding home doses of Cardizem (2) Pulmonary edema: Discontinue IV Lasix 20 mg IV now Monitor urine output and kidney function, will likely need further diuresis during course of admission Suspect this is precipitated by the rapid heart rate at this time (3) NSTEMI (non-ST elevated myocardial infarction): Elevated troponin at 100 baseline with downtrend at 2 hours EKG with A-fib with RVR Patient complains of intermittent chest pain This may be related to NSTEMI versus type II ME from rapid heart rate We will monitor for now with control of heart rate. If chest pain becomes persistent we will consult cardiology Check echocardiogram Continue aspirin 81 mg daily, started on Lovenox 1 mg/kg subcutaneously every 12 hours Monitor troponin trend at 6 hours (4) CHF (congestive heart failure): Last echocardiogram dates back to 2016 at which time he had a normal left ventricular size systolic function no regional wall motion abnormalities LVEF of 55%. Diastolic function was normal. Will check echocardiogram given new findings of A-fib RVR, NSTEMI Unknown at this time if his CHF is going to be acute or chronic or systolic or diastolic. This is a clinical diagnosis at this time Plan Past history of CAD: Continue aspirin and, atorvastatin Holding lisinopril due to hypotension Attestations Medical Necessity Statement*: Anticipate greater than 2 midnight admission for above defined care Coding Level of Care Code Acute Code for Chg Fwd High MDM includes number and complexity of problems actively addressed during encounter, amount and/or complexity of data reviewed/ordered and described risk of complication, morbidity or mortality of management as documented Diagnoses Atrial fibrillation with RVR I48.91 Pulmonary edema J81.1 NSTEMI (non-ST elevated myocardial infarction) I21.4 CHF (congestive heart failure) I50.9
--- NOTE | 2022-09-04 18:00 | ECG_ITS ---
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 Measurements Intervals [place] Rate: 103 P: 0 [place]: 0 QRS: -59 QRSD: 118 T: 33 QT: 359 QTc: 471 Interpretive Statements ATRIAL FIBRILLATION WITH RAPID VENTRICULAR RESPONSE POSSIBLE ANTERIOR MYOCARDIAL INFARCTION , OF INDETERMINATE AGE [30 ms Q WAVE IN V3/V4, OR R < 0.2 mV IN V4] INFERIOR MYOCARDIAL INFARCTION , PROBABLY OLD [40+ ms Q WAVE AND/OR ST/T ABNORMALITY IN II/aVF] Compared to ECG 09/04/2022 14:35:37 Left anterior fascicular block no longer present Myocardial infarct finding still present Electronically Signed On 09-04-2022 22:01:05 STATISTICAL TECHNICIAN by Yoko Michael M.D. [id number]
[2022-09-04] MEDS: FUROsemide 10 mg/mL SDV 2mL 20 MG IVP (18:34)
[2022-09-04] MEDS: atorvastatin 40 mg Tablet PO (18:34)
[2022-09-04] MEDS: enoxaparin 100 mg/mL Syringe 80 MG SUBCUT (18:35)
[2022-09-04 18:59] LABS: Troponin 5 6HR 98.02 ng/L (0-15)
[2022-09-04 19:03] LABS: Troponin 5 6HR Delta -11.98 ng/L (0-12)
[2022-09-04 20:04] LABS: Add Urine Microscopic? NO; Charge for UA Resulting for Rev
[2022-09-04 20:20] LABS: Bilirubin Urine Neg (Negative); Blood Urine Neg (Negative); Glucose Urine UA Norm (Normal); Ketones Urine Negative (Negative); Leukocyte Esterase Urine Negative (Negative); Nitrate Urine Negative (Negative); Protein Urine Neg (Negative); Urine Appearance Clear (CLEAR); Urine Color Yellow (Yellow); Urobilinogen Urine Neg (Negative); pH Urine 5 (5-7)
[2022-09-05] VITALS (24 sets, daily range): BP systolic 73–139; BP diastolic 52–90; PULSE 63–123; RESP 11–21; TEMP 36.6–37.1; O2SAT 93–99
[2022-09-05 03:17] LABS: Basophils % 0.5 %; Eosinophils # 0.2 10^3/uL (0.0-0.8); Eosinophils % 3.3 %; Hematocrit 29.9 % (42.0-52.0); Lymphocytes # 1.3 10^3/uL (0.8-4.8); Lymphocytes % 24.4 %; Mean Corpuscular HGB Conc 33.4 g/dL (30.0-36.0); Mean Corpuscular Volume 101.7 fl (80-94); Mean Platelet Volume 10.5 fL (7.4-10.4); Monocytes # 0.6 10^3/uL (0.2-0.9); Monocytes % 10.9 %; Neutrophils # 3.31 10^3/uL (1.8-7.7); Neutrophils % 60.4 %; Nucleated Red Blood Cells % 0 %; Platelet Count 209 10^3/cmm (130-400); Red Blood Count 2.94 10^6/uL (4.1-5.3); Red Cell Distribution Width 13.7 % (12.1-15.1); White Blood Count 5.5 10^3/uL (4.0-10.0)
[2022-09-05 03:39] LABS: Alanine Aminotransferase 8 U/L (0-41); Albumin Level 3.2 g/dL (3.5-5.2); Alkaline Phosphatase 100 U/L (40-130); Anion Gap 13.8 (5-19); Aspartate Amino Transferase 11 U/L (0-40); Blood Urea Nitrogen 14 mg/dL (8-23); Calcium 8.5 mg/dL (8.5-10.5); Carbon Dioxide 23 mmol/L (22-29); Chloride 103 mmol/L (98-107); Globulin 2.4 g/dL (1.3-4.6); Glucose 118 mg/dL (65-115); Magnesium 1.8 mg/dL (1.7-2.3); Osmolality Calculated 284 mOsm/kg (285-295); Potassium 3.8 mmol/L (3.5-5.1); Sodium 136 mmol/L (136-145); Total Bilirubin 0.5 mg/dL (0.15-1.2); Total Protein 5.6 g/dL (6.6-8.7)
[2022-09-05 04:00] LABS: Lactic Sepsis W/Reflex 0.9 mmol/L (0.5-2.2)
[2022-09-05] MEDS: enoxaparin 100 mg/mL Syringe 80 MG SUBCUT ×2 (05:48→17:26)
--- NOTE | 2022-09-05 08:30 | PC.NURSE ---
pt converted back to SR around 8:15 am. pt is still on amio drip. pt assisted back to bed from chair. reported of weakness when he got converted. notified.
--- NOTE | 2022-09-05 09:29 | USCV_ITS ---
Chris Reid Age: 76 Gender: M : 1945 Exam Date: 09/05/2022 14:42 Ordering Phys: Rekha Morin MD Technologist: LUIS ANTONIO [place] [facility] [place]: nstemi BP: / HR: 71 Rhythm: Sinus Technical Quality: Suboptimal MEASUREMENTS (Male / Female) Normal Values 2D ECHO LV Diastolic Diameter PLAX 5.9 cm 4.2 - 5.9 / 3.9 - 5.3 cm LV Systolic Diameter PLAX 5.3 cm IVS Diastolic Thickness 0.9 cm 0.6 - 1.0 / 0.6 - 0.9 cm IVS Systolic Thickness 1.1 cm LVPW Diastolic Thickness 0.7 cm 0.6 - 1.0 / 0.6 - 0.9 cm LVPW Systolic Thickness 1.0 cm LVOT Diameter 2.6 cm LV Ejection Fraction 2D Teich 17.0 % LV Ejection Fraction MOD 2C 52.7 % LV Ejection Fraction 2C AL 52.8 % LA Diameter 3.7 cm IVC Diameter 3.3 cm M-MODE Aortic Annulus Diameter 3.5 cm LA Ao Ratio MM 1.1 MV E Point Septal Separation 0.3 cm DOPPLER AV Peak Velocity 136.0 cm/s LVOT Peak Velocity 103.0 cm/s AV Area Cont Eq vti 3.6 cm squared AV Area Cont Eq pk 4.0 cm squared MV Area PHT 4.3 cm squared Mitral E to A Ratio 1.0 MV E' Velocity 51.0 cm/s Mitral E to MV E' Ratio 11.2 Mitral E to LV E' Lateral Ratio 10.7 Mitral E to LV E' Septal Ratio 11.9 TV Peak E Velocity 71.0 cm/s PV Peak Velocity 82.0 cm/s FINDINGS Left Ventricle Left ventricle is dilated. LV systolic function is mildly reduced with EF of 45-50%. Mild global hypokinesis. Right Ventricle Normal in size and function Right Atrium Normal in size Left Atrium Dilated Mitral Valve Mild mitral annular calcification is seen. Mild mitral regurgitation Aortic Valve Structurally normal aortic valve. No significant stenosis. Tricuspid Valve Mild tricuspid regurgitation. Pulmonic Valve Not well visualized Pericardium Normal Aorta Ascending aorta is dilated with diameter of 4.15cm IVC Appears to be dilated CONCLUSIONS Left ventricle is dilated. LV systolic function is mildly reduced with EF of 45-50%. Mild global hypokinesis seen. Left atrial dilation Mild mitral annular calcification is seen. Mild mitral regurgitation. Mild tricuspid regurgitation. Ascending aortic is dilated with diameter of 4.15 cm. Compared to prior echocardiogram from 2017, patient now has mild LV dysfunction and has mildly dilated ascending aorta. David Ontiveros MD (Electronically Signed) Final Date: 05 September 2022 15:55 S
--- NOTE | 2022-09-05 09:45 | PM.PN ---
Subjective Subjective: Converetd to sinus rhythm this morning, currently HR 69 bpm, transitioning to po amiodarone today. Continued to have intermittent chest pain overnight. BP this am at 139/90 with rate control. Medications: Reviewed: Yes Vitals/I&O/Wt Last Vital Signs Temp 97.8 F 09/05/22 07:47 Pulse 69 09/05/22 08:27 Resp 14 09/05/22 08:27 BP 139/90 09/05/22 08:27 Pulse Ox 99 09/05/22 08:27 O2 Del Method 09/05/22 07:48 O2 Flow Rate 2 09/05/22 07:48 09/04/22 09/05/22 09/05/22 22:59 06:59 14:59 Intake Total 316.833 / 816.833 687.18 / 1504.013 Output Total 480 / 480 600 / 1080 Balance -163.167 / 336.833 87.18 / 424.013 Weight last 48 hrs Weight 88.451 kg Physical Exam Narrative: General: No acute distress, AO x3 HEENT: PERRLA, pupils bilaterally equal and reactive, pallors not present Chest: Normal vesicular breath sounds, no added sounds, equal good air entry bilaterally CVS: S1-S2 regular, no murmurs, no tachycardia, no gallops, no rubs Abdomen: Soft, nontender, no organomegaly, bowel sounds present Neuro: No focal deficits, no facial deformity, AO x3, power 5/5 in all limbs Extremities: improved edema over LE compared to yesterday's exam Data 09/05/22 02:46 09/05/22 02:46 Micro: Microbiology 09/04/22 12:23 Blood Culture - Preliminary Blood SPECIMEN COLLECTED 09/04/22 12:26 Blood Culture - Preliminary Blood SPECIMEN COLLECTED A&P Assessment and plan (1) Atrial fibrillation with RVR: patient presenting with A-fib with RVR with heart rate ranging between 160-170 together with soft systolic blood pressure between 80-90. Started amiodarone infusion on 09/04, now transition to amiodarone 200mg po BID once infusion stops. Continue Lovenox 1 mg/kg subcutaneous every 12 hours, holding eliquis for now in case ischemic w/up pursued. Holding home doses of Cardizem (2) Pulmonary edema: Lasix 20 mg IV BID Monitor urine output and kidney function Suspect this is precipitated by the rapid heart rate at this time (3) NSTEMI (non-ST elevated myocardial infarction): Elevated troponin at 100 baseline with downtrend at 2 and 6 hours EKG with A-fib with RVR Patient complains of intermittent chest pain which continued through the night, He has also had c/o chest pain over the past week This may be related to NSTEMI versus type II MA from rapid heart rate Will consult cardiology Check echocardiogram Continue aspirin 81 mg daily, started on Lovenox 1 mg/kg subcutaneously every 12 hours (4) CHF (congestive heart failure): Last echocardiogram dates back to 2017 at which time he had a normal left ventricular size systolic function no regional wall motion abnormalities LVEF of 55%. Diastolic function was normal. echocardiogram pending this admission Unknown at this time if his CHF is going to be acute or chronic or systolic or diastolic. This is a clinical diagnosis at this time Plan Past history of CAD: Continue aspirin and, atorvastatin resume lisinopril 10 mg today as BP improved after HR control Attestations Medical Necessity Statement*: continued admission for iv diuresis, transition to po amiodarone, cardiology assessment , echocardiogram Coding Level of Care Code Acute Code for Chg Fwd High MDM includes number and complexity of problems actively addressed during encounter, amount and/or complexity of data reviewed/ordered and described risk of complication, morbidity or mortality of management as documented Diagnoses Atrial fibrillation with RVR I48.91 Pulmonary edema J81.1 NSTEMI (non-ST elevated myocardial infarction) I21.4 CHF (congestive heart failure) I50.9
[2022-09-05] MEDS: pantoprazole DR 40 mg Tablet PO (09:51)
[2022-09-05] MEDS: aspirin 81 mg EC Tablet PO (09:51)
[2022-09-05] MEDS: lisinopril 10 mg Tablet PO (09:51)
[2022-09-05] MEDS: FUROsemide 10 mg/mL SDV 2mL 20 MG IVP ×2 (10:37→19:17)
[2022-09-05] MEDS: amiodarone 200 mg Tablet PO ×2 (11:56→17:25)
--- NOTE | 2022-09-05 13:14 | PM.CONSULT ---
Providers/Reason For Consult Consulting Physician/Specialty*: David Ontiveros MD/ Cardiology Reason for Consult*: Worsenging chest pain Requesting Physician: Dr Morin Attending Physician: Rekha Morin MD Primary Care Provider: Kingston Noble DO History of Present Illness History of Present Illness Chrsi Reid is a 76 year old male with past medical history of hypertension, hyperlipidemia, CAD with multiple stents in the past, atrial fibrillation was presented to hospital with tachycardia and was found to have A-fib with RVR. Was also hypotensive. He also is describing substernal chest pain for the last 1 to 2 days. States this is relatively new for him and has worsened over time. Troponins was significantly elevated at 110 and then trended down. His troponins are normal. ECHO shows LV systolic function is mildly reduced with EF of 45-50%. ?Also has lower extremity edema. Review of Systems General: Reports: 10 or more systems reviewed and unremarkable except in HPI and below Const: Denies: fever(s), chills or body aches Eyes: Denies: change in vision, blurry vision or photophobia ENMT: Reports: hoarseness; Denies: throat pain, enlarged tonsils, odynophagia or nasal congestion Card: Reports: chest pain, palpitations and irregular heart rhythm; Denies: edema, swelling of feet/ankles, lightheadedness, pre-syncope, dyspnea on exertion or orthopnea Resp: Denies: dyspnea, productive cough, non-productive cough, wheezing, stridor, pain on inspiration, change in phlegm color, hemoptysis or chest congestion GI: Denies: abdominal pain, nausea, vomiting, hematemesis, coffee ground emesis, dysphagia, heartburn, diarrhea, constipation, GI cramping, change in stool character, hematochezia or melena : Denies: flank pain, dysuria, urinary frequency, urinary urgency, urinary hesitancy or hematuria Musc: Denies: neck pain, back pain, extremity pain, joint swelling, joint warmth or deformity Neuro: Denies: headache(s), numbness in extremities, weakness in extremities, sensory changes, difficulty walking, frequent falls, dizziness, vertigo, behavioral changes, Slurred speech present or seizure-like activity Psych: Denies: anxiety, depression, suicidal ideation or homicidal ideation Endo: Denies: polyuria, polydipsia, tired all the time, cold intolerance or hot flashes Edwin/Lymph: Denies: easy bruising or easy bleeding Medications/Allergies Home Medications Medication Instructions Recorded Confirmed Last Taken Type aspirin 81 mg tablet,delayed 81 mg PO DAILY 07/13/19 09/04/22 09/04/22 History release (Adult Low Dose Aspirin) furosemide 40 mg tablet 40 mg PO DAILY 07/13/19 09/04/22 09/04/22 History gabapentin 300 mg capsule 300 mg PO QPM 07/13/19 09/04/22 09/03/22 History nitroglycerin 0.4 mg sublingual 0.4 mg sublingual Q5M PRN Chest 07/13/19 09/04/22 Unknown History tablet (Nitrostat) Pain pantoprazole 40 mg tablet,delayed 20 mg PO DAILY 07/13/19 09/04/22 09/04/22 History release tamsulosin 0.4 mg capsule 0.4 mg PO QPM 07/13/19 09/04/22 09/04/22 History atorvastatin 80 mg tablet 40 mg PO QPM 08/08/19 09/04/22 09/03/22 History onabotulinumtoxinA 100 unit 155 unit SUBCUT .q 12 weeks 08/08/19 09/04/22 Unknown History solution for injection (Botox) acetaminophen 500 mg tablet 1,000 mg PO QID PRN fever or pain 03/04/20 09/04/22 Unknown History (Tylenol Extra Strength) lisinopril 20 mg tablet 10 mg PO DAILY 03/04/20 09/04/22 09/03/22 History meclizine 25 mg tablet 25 mg PO TID PRN dizziness #270 02/18/21 09/04/22 09/04/22 Rx tabs apixaban 5 mg tablet 5 mg PO BID #180 tabs 09/02/22 09/04/22 09/03/22 Rx diltiazem HCl 30 mg tablet 30 mg PO TID #60 tabs 09/02/22 09/04/22 09/03/22 Rx Allergies Allergy/AdvReac Type Severity Reaction Status Date / Time codeine Allergy Unknown Unconscious Verified 09/04/22 13:21 /syncope hydrochlorothiazide AdvReac hypotension Verified 09/04/22 13:21 Current Medications Generic Name Dose Route Start Last Admin Trade Name Freq PRN Reason Stop Dose Admin Amiodarone HCl 200 mg 09/05/22 11:37 09/05/22 11:56 Amiodarone 200 Mg Tablet PO 09/05/22 11:38 200 mg ONCE ONE Administration Aspirin 81 mg 09/05/22 09:00 09/05/22 09:51 Aspirin 81 Mg Ec Tablet PO 81 mg DAILY JULIET Administration Atorvastatin Calcium 40 mg 09/04/22 18:00 09/04/22 18:34 Atorvastatin 40 Mg Tablet PO 40 mg QPM JULIET Administration Enoxaparin Sodium 80 mg 09/04/22 18:00 09/05/22 05:48 Enoxaparin 100 Mg/Ml Syringe SUBCUT 80 mg Q12H JULIET Administration Furosemide 20 mg 09/05/22 10:00 09/05/22 10:37 Furosemide 10 Mg/Ml Sdv 2ml IVP 20 mg Q12H JULIET Administration Lisinopril 10 mg 09/05/22 09:00 09/05/22 09:51 Lisinopril 10 Mg Tablet PO 10 mg DAILY JULIET Administration Pantoprazole Sodium 40 mg 09/05/22 09:00 09/05/22 09:[address] 40 Mg Tablet PO 40 mg DAILY JULIET Administration PFSH Acute PFSH: Medical History Ascending aortic aneurysm Atrial fibrillation Deafness in right ear Deviated nasal septum, congenital H/O ventricular tachycardia History of colon polyps History of nonmelanoma skin cancer History of ST elevation myocardial infarction (STEMI) Hyperlipidemia Imbalance Nasal lesion Sensorineural hearing loss of left ear Surgical History H/O colonoscopy couple of years ago H/O esophagogastroduodenoscopy years ago H/O foot surgery H/O heart artery stent H/O neck surgery History of cervical spinal surgery History of colonoscopy with polypectomy (~2017) History of colonoscopy with polypectomy (~12/2019) S/P cataract surgery S/P foot surgery S/P PTCA (percutaneous transluminal coronary angioplasty) Family History Father Cancer Mother Cancer Other Heart disease Stroke Denies family history of Anesthesia complication Bleeding disorder Social History Smoking and tobacco status: never smoked Alcohol intake: current Alcohol intake frequency: holidays/special occasions only Alcohol type: beer Lives independently: Yes Marital status: Single Current occupational status: retired Vitals/I&O/Wt Last Vital Signs Temp 97.8 F 09/05/22 11:49 Pulse 74 09/05/22 12:06 Resp 14 09/05/22 08:27 BP 124/81 09/05/22 12:06 Pulse Ox 96 09/05/22 12:06 O2 Del Method 09/05/22 07:48 O2 Flow Rate 2 09/05/22 07:48 09/04/22 09/05/22 09/05/22 22:59 06:59 14:59 Intake Total 316.833 / 816.833 687.18 / 1504.013 Output Total 480 / 480 600 / 1080 400 / 400 Balance -163.167 / 336.833 87.18 / 424.013 -400 / -400 Weight last 48 hrs Weight 195 lb Physical Exam Narrative: GENERAL: Patient is alert, awake and oriented x3. [] NECK: No jugular vein distension. [] HEENT: No cyanosis. No icterus. No pallor. [] HEART: Irregular S1 and S2. No murmur, rub or gallop. [] LUNGS: Clear to auscultate bilaterally. [] CENTRAL NERVOUS SYSTEM: Grossly nonfocal. [] EXTREMITIES: Lower extremities with 1+ edema bilaterally. Pulses palpable in the lower extremities, both dorsalis pedis and posterior tibial. [] Data 09/05/22 02:46 09/05/22 02:46 Micro: Microbiology 09/04/22 12:23 Blood Culture - Preliminary Blood NEGATIVE TO DATE 09/04/22 12:26 Blood Culture - Preliminary Blood NEGATIVE TO DATE A&P Assessment and plan (1) NSTEMI (non-ST elevated myocardial infarction): (2) CHF (congestive heart failure): (3) Atrial fibrillation with RVR: (4) Hypertension: Qualifiers: Hypertension type: essential hypertension Qualified Code(s): I10 - Essential (primary) hypertension (5) Hyperlipidemia: Qualifiers: Hyperlipidemia type: mixed hyperlipidemia Qualified Code(s): E78.2 - Mixed hyperlipidemia (6) CAD (coronary artery disease): Plan Patient is having on and off chest discomfort episodes. Also had significant troponin elevation. It could be secondary to type I NSTEMI versus demand ischemia. However given his significant CAD history and typical chest pain symptoms we will proceed with coronary angiogram with possible percutaneous coronary intervention in the morning. N.p.o. past midnight Continue holding Eliquis. Echo shows mildly reduced LV systolic function. Thank you for involving us with care of this patient. We will continue to follow. Please call with questions. Consult Attestations Medical Necessity Statement: Care expected to cross 2 midnights. Coding Level of Care Code Acute Code for [facility] Diagnoses NSTEMI (non-ST elevated myocardial infarction) I21.4 CHF (congestive heart failure) I50.9 Atrial fibrillation with RVR I48.91 Hypertension I10 Hypertension type: essential hypertension Hyperlipidemia E78.2 Hyperlipidemia type: mixed hyperlipidemia CAD (coronary artery disease) I25.10
[2022-09-05] MEDS: gabapentin 300 mg Capsule PO (17:25)
[2022-09-05] MEDS: atorvastatin 40 mg Tablet PO (17:25)
[2022-09-05] MEDS: tamsulosin 0.4 mg Capsule PO (17:25)
[2022-09-06] VITALS (26 sets, daily range): BP systolic 97–140; BP diastolic 64–99; PULSE 62–79; RESP 11–24; TEMP 36.7–37.2; O2SAT 87–98
[2022-09-06 05:02] LABS: Basophils % 0.5 %; Eosinophils # 0.2 10^3/uL (0.0-0.8); Eosinophils % 2.6 %; Hematocrit 32.1 % (42.0-52.0); Hemoglobin 10.9 g/dL (11.7-16.6); Lymphocytes # 1.4 10^3/uL (0.8-4.8); Lymphocytes % 23.4 %; Mean Corpuscular Hemoglobin 34.5 pg (28.0-34.0); Mean Corpuscular Volume 101.6 fl (80-94); Mean Platelet Volume 10.3 fL (7.4-10.4); Monocytes # 0.6 10^3/uL (0.2-0.9); Monocytes % 10.6 %; Neutrophils # 3.66 10^3/uL (1.8-7.7); Neutrophils % 62.4 %; Nucleated Red Blood Cells % 0 %; Platelet Count 237 10^3/cmm (130-400); Red Blood Count 3.16 10^6/uL (4.1-5.3); Red Cell Distribution Width 13.5 % (12.1-15.1); White Blood Count 5.9 10^3/uL (4.0-10.0)
[2022-09-06 05:28] LABS: Alanine Aminotransferase 7 U/L (0-41); Albumin Level 3.3 g/dL (3.5-5.2); Alkaline Phosphatase 97 U/L (40-130); Anion Gap 15.2 (5-19); Aspartate Amino Transferase 11 U/L (0-40); Blood Urea Nitrogen 14 mg/dL (8-23); Calcium 8.9 mg/dL (8.5-10.5); Carbon Dioxide 25 mmol/L (22-29); Chloride 103 mmol/L (98-107); Globulin 2.7 g/dL (1.3-4.6); Glucose 106 mg/dL (65-115); Osmolality Calculated 289 mOsm/kg (285-295); Potassium 4.2 mmol/L (3.5-5.1); Sodium 139 mmol/L (136-145); Total Bilirubin 0.4 mg/dL (0.15-1.2)
--- NOTE | 2022-09-06 07:08 | XACV_ITS ---
Exam Room: [facility] Ht: 175 cm Wt: 88 kg BSA: 2.10 m2 Gender: Male : 1945 Any Known Allergies: Other Exam Priority: Routine Procedure(s): Procedure Description: Diagnostic procedure Procedure Description: Left Heart Catheterization Procedure Description: Coronary Angiography Diagnostic Cath Status: Urgent Diagnostic Findings * Left Main has no significant disease. * Left Anterior Descending has patent prior stents. There is 50% mid LAD stenosis. * Right Coronary Artery has patent prior stent. * Proximal Circumflex: minimal 30% stenosis, ANDRIA: 3 flow. * Coronary angiography shows right dominance. Conclusions 1. Non obstructive coronary artery disease. Patent prior stents. Recommendations * Aggressive risk factor modification. * Outpatient cardiology follow up in 4 weeks. Interventional RX Recommendation: medical therapy and/or counseling Diagnostic RX Recommendation: medical therapy and/or counseling Anticoagulation: Heparin Pressures Phase:Rest AO : 132 / 79 ( 97 ) @ 8:25:00 AM 120 / 59 ( 84 ) @ 8:37:00 AM 118 / 63 ( 80 ) @ 8:37:00 AM LV : 128 / -5 / 16 @ 8:37:00 AM 128 / -6 / 14 @ 8:37:00 AM Valves Phase:DefaultPhase AV : 9.0 @ 8:45:17 AM 9.0 @ 8:45:17 AM AV Mean Gradient: 9.0 @ 8:45:17 AM Clinical Evaluation EBL: 5mL-10mL Procedural Details Procedure Consent Obtained. Admit Source: In Patient. Pre-Procedure Time Out. Identified patient by full name and date of as verbalized by the patient/guarantor. Does the consent match the physician's order: Yes. Accurate & Complete Informed Consent: Yes. Inpatient/Outpatient History & Physical on Chart: Yes. If H&P is completed, is and addenduem needed: No; If yes, is the addendum complete: N/A. Visualize and Verify Site with Patient/Guarantor: N/A. Relevant Radiology Images available: Yes. Pre-op teaching completed and patient verbalized understanding. The risks, benefits, and alternatives of sedation and/or procedure were discussed by physician. The patient agrees to continue. Procedure started. [facility] Clinical Fraility Score: 4: Vulnerable. Sourcing Analyst Indications: Worsening Angina. Chest Pain Symptom Assessment: Typical Angina Symptoms. Correct patient, site and procedure confirmed by cath team. Current diagnosis: Chest Pain. PERRLA. Strong, equal hand pharmacy picking tech bilaterally. Lungs clear x 5 lobes. A 20 gauge IV was started in the left anticubital using aseptic technique. IV Fluids: 0.9% NaCl at 75ml/hr. 0 mL infused prior to skilled laborer. Pre Procedural Pulses: bilateral radial was 3+. Pre Procedural Pulses: bilateral dorsalis pedis was 2+. Pre Procedural Pulses: bilateral posterior tibial was 2+. Oxygen started at 2liters/min via nasal canula. right groin was prepped with chloroprep then draped in the usual sterile fashion. right radial was prepped with chloroprep then draped in the usual sterile fashion. Physician notified. Baseline sample Acquired. HR: 49 BPM. Physician arrived. Physician scrubbed in. Immediate Pre-Procedure Time Out. Correct Patient: Yes; Correct Procedure: Yes; Correct Site: Yes; Correct Patient Position: Yes; Correct Supplies: Yes; Dried Flammable Prep: Yes; Blood Products Available: Yes;. Lidocaine 1% infiltrated to the right radial. Arterial access obtained. A 5 singaporean TIG catheter in over wire. Multiple views taken of left coronary artery. Catheter removed over the exchange wire. A 5 singaporean JR4 catheter in over wire. Multiple views taken of right coronary artery. Exchange wire in, catheter advanced into LV. Exchange wire out. EDP Sample taken: LV 128/-6,16; HR: 80 BPM; SpO2: 88%. Pullback taken: LV 128/-7,14; AO 120/59(84); Mean: 9mmHg, Peak to Peak: 9mmHg, SEP: 25sec/min; HR: 75 BPM; SpO2: 91%. Catheter removed over the exchange wire. Physician scrubbed out. A TR Band was successful obtaining hemostatsis at the Right Radial artery insertion site. Post Procedure: Pulses reassessed and unchanged. PERRLA. Strong, equal hand pharmacy picking tech bilaterally. No VTE prophylaxis required. Medication's Wasted: Lidocaine 1% = 1 mL. Medication's Wasted: Heparin = 1000 unit. Post-op diagnosis: Non-obstructive CAD, patent prior stents. Complications: None. Estimated blood loss: 5mL-10mL. Responsiveness - Normal response to verbal stimuli; alert and oriented, PERRLA. Airway - Unaffected, no intervention required; spontaneous ventilation. Circulation: W/N/L, pulses unchanged. Nausea/Vomiting: N/A. Procedure completed. Total IV fluids: 36 mL. Patient transferred by stretcher to 1st floor. Vital chart was stopped. Access Site Site: Right Radial artery Sheath Size: 6 Fr Hemostasis Method: TR Band Hemostasis Success: Successful Procedure Medications Start: 8:22 AM Stop: 8:22 AM Medication: Fentanyl Amount: 50 mcg Route: I.V. Start: 8:22 AM Stop: 8:22 AM Medication: Versed Amount: 1 mg Route: I.V. Start: 8:24 AM Stop: 8:24 AM Medication: Nitrogylcerin Amount: 200 mcg Route: I.A. Start: 8:26 AM Stop: 8:26 AM Medication: Heparin Amount: 5000 units Route: I.V. Start: 8:26 AM Stop: 8:26 AM Medication: Fentanyl Amount: 50 mcg Route: I.V. Start: 8:26 AM Stop: 8:26 AM Medication: Versed Amount: 1 mg Route: I.V. I, the attending physician, have reviewed and verified all procedure medications. Yes, all medications given per verbal order History/Risk Factors Hypertension: Yes Dyslipidemia: Yes Peripheral Arterial Disease (PAD): No Myocardial Infarction (WA): Yes Obesity: No Renal Disease: No Prior Interventions PCI: Yes CABG: No Valve Surgery: No Date of PCI: 01/11/2015 Report Signatures Finalized by David Ontiveros MD on 09/07/2022 01:19 PM
--- NOTE | 2022-09-06 07:54 | W.PM.OPSUD ---
Surgery/Procedure H&P Update DATE OF PROCEDURE: September 06, 2022 DATE H&P PERFORMED: 09/05/22 H&P UPDATE INFORMATION: I have reviewed H&P completed within last 30 days, I have examined patient prior to procedure and No changes to prior documentation PREOP DIAGNOSIS: Worsening angina PRIMARY INDICATION FOR PROCEDURE: Worsening angina PLANNED PROCEDURE: Left heart cath with possible percutaneous coronary intervention PATIENT REASSESSED PRIOR TO SEDATION, WITH NO CHANGE NOTED: Yes PHYSICAL EXAM: alert, oriented x 3 and clear to auscultation bilaterally OTHER PERTINENT EXAM FINDINGS: Irregular heart rhythm AIRWAY EVAL/ANESTHESIA PLAN: normal airway, ASA III, Local Anesthesia, Risks, benefits & alternatives of sedation and/or procedure discussed and Patient agrees to continue as planned ADDITIONAL INFORMATION: Moderate sedation
--- NOTE | 2022-09-06 08:19 | PC.NURSE ---
to label printing machinist
--- NOTE | 2022-09-06 08:54 | PM.PN ---
Subjective Subjective: Patient is overall stable. No chest pain today. Vitals/I&O/Wt Last Vital Signs Temp 98.9 F 09/06/22 04:00 Pulse 63 09/06/22 04:16 Resp 18 09/06/22 04:00 BP 109/64 09/06/22 04:00 Pulse Ox 97 09/06/22 04:00 O2 Del Method 09/05/22 20:12 O2 Flow Rate 2 09/05/22 20:12 09/05/22 09/06/22 09/06/22 22:59 06:59 14:59 Intake Total 310.82 / 670.82 0 / 670.82 Output Total 1050 / 1450 1075 / 2525 Balance -739.18 / -779.18 -1075 / -1854.18 Weight last 48 hrs Weight 195 lb Physical Exam Narrative: GENERAL: Patient is alert, awake and oriented x3. [] NECK: No jugular vein distension. [] HEENT: No cyanosis. No icterus. No pallor. [] HEART: Irregular S1 and S2. No murmur, rub or gallop. [] LUNGS: Clear to auscultate bilaterally. [] CENTRAL NERVOUS SYSTEM: Grossly nonfocal. [] EXTREMITIES: Lower extremities with 1+ edema bilaterally. Pulses palpable in the lower extremities, both dorsalis pedis and posterior tibial. [] Data 09/06/22 03:50 09/06/22 03:50 Micro: Microbiology 09/04/22 12:23 Blood Culture - Preliminary Blood NEGATIVE TO DATE 09/04/22 12:26 Blood Culture - Preliminary Blood NEGATIVE TO DATE A&P Assessment and plan (1) NSTEMI (non-ST elevated myocardial infarction): (2) CHF (congestive heart failure): (3) Atrial fibrillation with RVR: (4) Hypertension: Qualifiers: Hypertension type: essential hypertension Qualified Code(s): I10 - Essential (primary) hypertension (5) Hyperlipidemia: Qualifiers: Hyperlipidemia type: mixed hyperlipidemia Qualified Code(s): E78.2 - Mixed hyperlipidemia (6) CAD (coronary artery disease): Plan Patient is stable. Coronary angiogram did not reveal any significant CAD. Troponin elevation likely secondary to atrial fibrillation. Resume anticoagulation with Eliquis. Patient is stable to be discharged from cardiology standpoint. Attestations Medical Necessity Statement*: Care expected to cross 2 midnights. Coding Level of Care Code Acute Code for [facility]g Fwd Diagnoses NSTEMI (non-ST elevated myocardial infarction) I21.4 CHF (congestive heart failure) I50.9 Atrial fibrillation with RVR I48.91 Hypertension I10 Hypertension type: essential hypertension Hyperlipidemia E78.2 Hyperlipidemia type: mixed hyperlipidemia CAD (coronary artery disease) I25.10
[2022-09-06] MEDS: aspirin 81 mg EC Tablet PO (09:31)
[2022-09-06] MEDS: lisinopril 10 mg Tablet PO (09:31)
[2022-09-06] MEDS: pantoprazole DR 40 mg Tablet PO (09:31)
[2022-09-06] MEDS: amiodarone 200 mg Tablet PO (09:31)
--- NOTE | 2022-09-06 09:39 | PC.NURSE ---
received from cardiac laboratory mechanic helper at 0900.report received.pt is alert and awake and oriented x 4.sr on monitor.right radial tr band intact and inflated.right hand is warm to touch and with brisk capillary refill.palpable radial pulse noted distal to tr band.no hematoma noted.pt instructed in activity restrictions s/p radial artery procedure..and instructed to notify staff for any bleeding,pain,numbness,sob..or for any concerns at all.pt verb understanding of instructions
[2022-09-06] MEDS: sodium chloride 0.9% 1,000 ML 100 ML IV (10:30)
--- NOTE | 2022-09-06 11:44 | P.DS_ITS ---
Discharge Providers Date of Admission: 09/04/22 17:24 Date of Discharge: September 06, 2022 Attending Provider at Admission: Rekha Morin MD Attending Provider at Discharge: Rekha Morin MD Primary Care Provider: Kingston Noble DO Diagnoses at Discharge Discharge Diagnosis (1) NSTEMI (non-ST elevated myocardial infarction): Status: Acute (2) CHF (congestive heart failure): Status: Acute (3) Atrial fibrillation with RVR: Status: Acute (4) Hypertension: Status: Acute Qualifiers: Hypertension type: essential hypertension Qualified Code(s): I10 - Esse ntial (primary) hypertension (5) Hyperlipidemia: Status: Acute Qualifiers: Hyperlipidemia type: mixed hyperlipidemia Qualified Code(s): E78.2 - Mixed hyperlipidemia (6) CAD (coronary artery disease): Status: Acute Reason for Visit Reason for Visit: SOB/ WEAKNESS Hospital Course Hospital Course Chris Reid is a 76 year old male?PMHx of HTN, HLD, CAD, recurrent orthostasis and syncope, A-fib with RVR diagnosed on a recent visit with cardiology on September 02, 2022.? He was started on Cardizem 30 mg 3 times daily for rate control and Eliquis for anticoagulation.? He presented to the emergency room because of complaints of dizziness, several low blood pressure recordings at home with systolic blood pressure between 50 to 60 mmHg.? His heart rate at the same time has been high in the 1 60-1 70 range.? He has also been complaining of intermittent chest pain over the past week.???On arrival at the ER patient was in A-fib with RVR with heart rate between 160 to 170 bpm.? He was started on a Cardizem drip, however in spite of being on Cardizem at least over the last 2 hours his heart rate is still at 140 bpm.? He was started on amiodarone infusion converted to sinus rhythm in the morning of September for 2022. He has been transitioned to amiodarone 200 mg p.o. twice daily. He was noted to have significantly elevated troponins with a baseline of 100 and had been complaining of intermittent substernal chest chest discomfort over the last week. Cardiology was consulted for ischemic evaluation, patient underwent a coronary angiogram this morning which revealed patent past stents and no other significant disease.. Medical management is recommended. He also had pulmonary edema upon arrival for which she was treated with IV Lasix during the course of admission. He is euvolemic at the time of discharge. Suspect that his edema was precipitated by the RVR. Echocardiogram showed mildly reduced EF of 45 to 50% with mild global hypokinesis. Patient's symptoms are resolved since converting to sinus rhythm. He is currently heart rate between 60 to 80 bpm, blood pressure is 109/64. No hypotensive or presyncopal were episodes were noted while in the hospital. He still has an event monitor in place at discharge. Physical Exam Narrative: General: No acute distress, AO x3 HEENT: PERRLA, pupils bilaterally equal and reactive, pallors not present Chest: Normal vesicular breath sounds, no added sounds, equal good air entry bilaterally CVS: S1-S2 regular, no murmurs, no tachycardia, no gallops, no rubs Abdomen: Soft, nontender, no organomegaly, bowel sounds present Neuro: No focal deficits, no facial deformity, AO x3, power 5/5 in all limbs Discharge Data Studies Completed and Pending Completed Studies During Hospitalization Category Date Time Status XR chest 1V portable [id number] Stat Exams 09/04/22 12:08 Completed CV. echo complete* [id number] Routine Ultrasound 09/05/22 09:29 Completed Pending at discharge Category Date Time Status SURFACE MINER request for service Routine Exams 09/06/22 07:08 Ordered Blood Culture Stat Lab 09/04/22 12:23 Results Radiology Impressions Chest X-Ray 09/04/22 12:08 IMPRESSION: Imaging findings suggestive of pulmonary congestion. Pneumonia should be excluded clinically. Laboratory Results WBC 5.9 10^3/uL (4.0-10.0) 09/06/22 03:50 RBC 3.16 10^6/uL (4.1-5.3) L 09/06/22 03:50 Hgb 10.9 g/dL (11.7-16.6) L 09/06/22 03:50 Hct 32.1 % (42.0-52.0) L 09/06/22 03:50 MCV 101.6 fl (80-94) H 09/06/22 03:50 MCH 34.5 pg (28.0-34.0) H 09/06/22 03:50 MCHC 34.0 g/dL (30.0-36.0) 09/06/22 03:50 RDW 13.5 % (12.1-15.1) 09/06/22 03:50 Plt Count 237 10^3/cmm (130-400) 09/06/22 03:50 MPV 10.3 fL (7.4-10.4) 09/06/22 03:50 Neut % (Auto) 62.4 % 09/06/22 03:50 Lymph % (Auto) 23.4 % 09/06/22 03:50 [place] % (Auto) 10.6 % 09/06/22 03:50 Eos % (Auto) 2.6 % 09/06/22 03:50 Baso % (Auto) 0.5 % 09/06/22 03:50 Neut # (Auto) 3.66 10^3/uL (1.8-7.7) 09/06/22 03:50 Lymph # (Auto) 1.4 10^3/uL (0.8-4.8) 09/06/22 03:50 Loving # (Auto) 0.6 10^3/uL (0.2-0.9) 09/06/22 03:50 Eos # (Auto) 0.2 10^3/uL (0.0-0.8) 09/06/22 03:50 Baso # (Auto) 0.0 10^3/uL (0.0-0.1) 09/06/22 03:50 Nucleated RBC % (auto) 0 % 09/06/22 03:50 Nucleated RBCs # 0.0 /100WBC 09/06/22 03:50 Sodium 139 mmol/L (136-145) 09/06/22 03:50 Potassium 4.2 mmol/L (3.5-5.1) 09/06/22 03:50 Chloride 103 mmol/L (98-107) 09/06/22 03:50 Carbon Dioxide 25 mmol/L (22-29) 09/06/22 03:50 Anion Gap 15.2 (5-19) 09/06/22 03:50 BUN 14 mg/dL (8-23) 09/06/22 03:50 Creatinine 0.9 mg/dL (0.7-1.2) 09/06/22 03:50 GFR Calculation Not Reportable 09/06/22 03:50 Glucose 106 mg/dL (65-115) 09/06/22 03:50 Calculated Osmolality 289 mOsm/kg (285-295) 09/06/22 03:50 Lactic Acid 0.9 mmol/L (0.5-2.2) 09/05/22 02:46 Calcium 8.9 mg/dL (8.5-10.5) 09/06/22 03:50 Magnesium 1.8 mg/dL (1.7-2.3) 09/05/22 02:46 Total Bilirubin 0.4 mg/dL (0.15-1.2) 09/06/22 03:50 AST 11 U/L (0-40) 09/06/22 03:50 ALT 7 U/L (0-41) 09/06/22 03:50 Alkaline Phosphatase 97 U/L (40-130) 09/06/22 03:50 Troponin T Baseline 110 ng/L (0-15) H* 09/04/22 12:23 Troponin T 120 Minute 100.2 ng/L (0-15) H 09/04/22 14:07 Delta Troponin T -9.8 ABS# (0-10) L 09/04/22 14:07 Troponin T Hi Sens 6Hr 98.02 ng/L (0-15) H 09/04/22 18:17 Troponin T Hi Sens 6Hr Delta -11.98 ng/L (0-12) L 09/04/22 18:17 NT-Pro-B Natriuret Pep 2875 pg/mL (0-450) H 09/04/22 12:23 Total Protein 6.0 g/dL (6.6-8.7) L 09/06/22 03:50 Albumin 3.3 g/dL (3.5-5.2) L 09/06/22 03:50 Globulin 2.7 g/dL (1.3-4.6) 09/06/22 03:50 TSH 1.11 uIU/mL (0.27-4.20) 09/04/22 12:23 Urine Color Yellow (Yellow) 09/04/22 15:52 Urine Appearance Clear (CLEAR) 09/04/22 15:52 Urine pH 5 (5-7) 09/04/22 15:52 Ur Specific [place] 1.020 (1.005-1.030) 09/04/22 15:52 Urine Protein Neg (Negative) 09/04/22 15:52 Urine Glucose (UA) Norm (Normal) 09/04/22 15:52 Urine Ketones Negative (Negative) 09/04/22 15:52 Urine Blood Neg (Negative) 09/04/22 15:52 Urine Nitrate Negative (Negative) 09/04/22 15:52 Urine Bilirubin Neg (Negative) 09/04/22 15:52 Urine Urobilinogen Neg mg/dL (Negative) 09/04/22 15:52 Ur Leukocyte Esterase Negative (Negative) 09/04/22 15:52 Blood Type B Negative 09/04/22 12:26 Rho(D) Type Negative 09/04/22 12:26 Antibody Screen Negative 09/04/22 12:26 Vitals Last Vital Signs Temp 98.9 F 09/06/22 04:00 Pulse 63 09/06/22 04:16 Resp 18 09/06/22 04:00 BP 109/64 09/06/22 04:00 Pulse Ox 97 09/06/22 08:00 O2 Del Method 09/06/22 08:00 O2 Flow Rate 2 09/05/22 20:12 Discharge Plan Discharge Patient Disposition: Home Condition: Stable Prescriptions: New amiodarone [Pacerone] 200 mg Tablet 200 mg PO BID 30 Days Qty: 60 0RF Continued Botox 100 unit recon soln 155 unit SUBCUT .q 12 weeks acetaminophen [Tylenol Extra Strength] 500 mg tablet 1,000 mg PO QID PRN (Reason: fever or pain) meclizine 25 mg tablet 25 mg PO TID PRN (Reason: dizziness) Qty: 270 3RF aspirin [Adult Low Dose Aspirin] 81 mg tablet,delayed release (DR/EC) 81 mg PO DAILY Hold Instructions: Resume on 01/06/20. furosemide 40 mg tablet 40 mg PO DAILY gabapentin 300 mg capsule 300 mg PO QPM nitroglycerin [Nitrostat] 0.4 mg tablet, sublingual 0.4 mg SUBLINGUAL Q5M PRN (Reason: Chest Pain) pantoprazole 40 mg tablet,delayed release (DR/EC) 20 mg PO DAILY tamsulosin 0.4 mg capsule 0.4 mg PO QPM atorvastatin 80 mg tablet 40 mg PO QPM lisinopril 20 mg tablet 10 mg PO DAILY apixaban 5 mg tablet 5 mg PO BID Qty: 180 2RF Discontinued diltiazem HCl 30 mg tablet 30 mg PO TID Qty: 60 0RF Rx Instructions: follow up in 2 weeks Discharge Orders: Discharge Order (Routine); Ordered 09/06/22 Ordered By: Rekha Morin Referrals: Kingston Noble DO [Primary Care Provider] - Flavia Helton FNP [Nurse Practitioner] - 1 week Jo Deleon MD [Physician] - 1 month Discharge Diet: Usual diet Discharge Activity: Resume usual activity Patient Instructions: Opioid Safety Discharge Attestations Time Spent in Discharge Care*: greater than 30 min Quality Metrics Clinical Quality Measures [ No reported AMI, CVA or VTE this stay] Coding Level of Care Code Acute Code for [facility] Fwd Diagnoses NSTEMI (non-ST elevated myocardial infarction) I21.4 CHF (congestive heart failure) I50.9 Atrial fibrillation with RVR I48.91 Hypertension I10 Hypertension type: essential hypertension Hyperlipidemia E78.2 Hyperlipidemia type: mixed hyperlipidemia CAD (coronary artery disease) I25.10
== END 2022-09-06 15:43 | disposition home or self-care (01) | DRG 287 ==
LOC: ER 15:06 → CSU 16:33
PROVIDERS: Internal Medicine; Admitting Provider Student in an Organized Health Care Education/Training Program; Emergency Provider Emergency Medicine; PCP Emergency Medicine Emergency Medical Services; Visit Provider Student in an Organized Health Care Education/Training Program
PROC: 4A023N7 Measurement of Cardiac Sampling and Pressure, Left Heart, Percutaneous Approach (ICD-10-PCS; principal; 2022-09-06 08:00)
DX: I48.91 Unspecified atrial fibrillation (principal); I50.22 Chronic systolic (congestive) heart failure; I11.0 Hypertensive heart disease with heart failure; E78.2 Mixed hyperlipidemia; I25.10 Atherosclerotic heart disease of native coronary artery without angina pectoris; Z95.5 Presence of coronary angioplasty implant and graft; Z79.82 Long term (current) use of aspirin; I71.40 Abdominal aortic aneurysm, without rupture, unspecified; Z98.1 Arthrodesis status; Q67.4 Other congenital deformities of skull, face and jaw; Z85.828 Personal history of other malignant neoplasm of skin; I25.2 Old myocardial infarction; H90.42 Sensorineural hearing loss, unilateral, left ear, with unrestricted hearing on the contralateral side
CPT/HCPCS: 36415; 71045; 80053; 81003; 83605; 83735; 83880; 84443; 84484; 85025; 86850; 86900; 87040; 93005; 93306; 93458; 96365; 96372; 96375; 96376; 99152; 99153; 99285; C1769; C1887; C1894; J0282; J1644; J1650; J1940; J2250; J3010; J3490; J7030; J7040; J7060; Q9967

== ENCOUNTER → 2022-09-16 10:33 | Outpatient (BNVA) | payer OTHER, SELFPAY | PROVIDERS: PCP Emergency Medicine Emergency Medical Services; Visit Provider Nurse Practitioner Family | DX: I48.91 Unspecified atrial fibrillation (principal); I25.10 Atherosclerotic heart disease of native coronary artery without angina pectoris; I50.9 Heart failure, unspecified; Z79.01 Long term (current) use of anticoagulants | CPT/HCPCS: 36415; 80048; 93005; 99214 ==

== ENCOUNTER 2022-09-22 09:25 | Outpatient (CLI) | payer OTHER, SELFPAY ==
--- NOTE | 2022-09-22 09:43 | CT_ITS ---
WS: [id number] CT HEAD TECHNIQUE: Noncontrast and contrast-enhanced CT of the head. CLINICAL INFORMATION: PERSISTENT VERTIGO COMPARISON: CT August 11, 2019 [] DLP: 2186.[address] scans at [facility] use at least one of these dose optimization techniques: automated e xposure control; mA and/or kV adjustment per patient size (includes targeted exams where dose is matc hed to clinical indication); or iterative reconstruction. FINDINGS: No evidence of intracranial hemorrhage or mass effect. Ventricular system and basal cisterns are dunn nt. Moderate small vessel changes. Mild parenchymal volume loss worse in the frontal lobes. Tiny car examiner saundra lacunar infarcts in the LEFT basal ganglia. Vascular calcification. Evidence of chronic ischemia in the LEFT centrum semiovale. No abnormal intracranial enhancement. [place] air cells well aerated. Paranasal sinuses are well aerated. Normal posterior nasopharynx. CT/CT head wo/w con [id number] IMPRESSION: 1. No evidence of intracranial hemorrhage or mass effect. 2. No abnormal intracranial enhancement. 3. Moderate small vessel changes with mild parenchymal volume loss worse in th e frontal lobes. 4. Vascular calcification.
[2022-09-22] MEDS: iohexol 350 mg/mL 500 mL Btl (per mL) IV (10:09)
== END 2022-09-22 09:26 | disposition home or self-care (01) ==
LOC: RAD 09:32
PROVIDERS: PCP Emergency Medicine Emergency Medical Services; Visit Provider Emergency Medicine Emergency Medical Services
DX: R42 Dizziness and giddiness (principal)
CPT/HCPCS: 70470; Q9967

== ENCOUNTER 2022-09-28 11:58 | Outpatient (CLI) | payer OTHER, SELFPAY ==
--- NOTE | 2022-09-28 12:05 | USCV_ITS ---
Chris Reid Age: 76 Gender: M : 1945 Exam Date: 09/28/2022 12:22 Ordering Phys: Kingston Noble DO Technologist: SILVIA Exam Location: [facility] [place] Indication: VERTIGO Risk Factors: Previous Vascular Surgery: Right Brachial BP: / Left Brachial BP: / Right Left Velocity (cm/s) Spectral Plaque Velocity (cm/s) Spectral Plaque Syst/Diast Broadening Syst/Diast Broadening 72.90/ 20.60 Prox CCA 66.00 / 17.90 45.90/ 8.50 Mid CCA 66.00 / 14.80 53.40/ 13.40 Distal CCA 73.00 / 18.60 89.70/ 35.00 Prox ICA 62.40 / 26.90 64.90/ 23.90 Mid ICA 49.10 / 18.40 70.90/ 27.75 Distal ICA 63.10 / 25.00 66.80 ECA 85.40 1.41 ICA/CCA 0.74 Antegrade Vertebral Antegrade 38.10/ 11.20 cm/s 44.70/ 17.10 cm/s Bi Subclavian Tri 60.70 52.30 CONCLUSIONS Right ICA stenosis <50%. Mild atheromatous plaque right carotid bulb/ICA. Left ICA stenosis <50%. Mild atheromatous plaque left carotid bulb/ICA. Normal antegrade Doppler flow noted in the right vertebral artery. Normal antegrade Doppler flow noted in the left vertebral artery. Hunter Rodriguez MD (Electronically Signed) Final Date: 28 September 2022 14:46 S
== END 2022-09-28 11:59 | disposition home or self-care (01) ==
LOC: RAD 12:01
PROVIDERS: PCP Emergency Medicine Emergency Medical Services; Visit Provider Emergency Medicine Emergency Medical Services
DX: R42 Dizziness and giddiness (principal); I65.23 Occlusion and stenosis of bilateral carotid arteries
CPT/HCPCS: 93880

== ENCOUNTER → 2022-11-09 08:52 | Outpatient (BNVA) | payer OTHER, SELFPAY | PROVIDERS: PCP Emergency Medicine Emergency Medical Services; Visit Provider Specialist | DX: G43.711 Chronic migraine without aura, intractable, with status migrainosus (principal); G31.84 Mild cognitive impairment of uncertain or unknown etiology; H91.90 Unspecified hearing loss, unspecified ear | CPT/HCPCS: 64615; 99212; J0585 ==

== ENCOUNTER → 2022-12-17 15:06 | Outpatient (BNVA) | payer OTHER, SELFPAY | PROVIDERS: PCP Emergency Medicine Emergency Medical Services; Visit Provider Internal Medicine Cardiovascular Disease | DX: I25.10 Atherosclerotic heart disease of native coronary artery without angina pectoris (principal); I11.0 Hypertensive heart disease with heart failure; I50.9 Heart failure, unspecified; E78.2 Mixed hyperlipidemia; I48.91 Unspecified atrial fibrillation; G43.711 Chronic migraine without aura, intractable, with status migrainosus; I45.9 Conduction disorder, unspecified | CPT/HCPCS: 93005; 99214 ==

== ENCOUNTER → 2023-02-11 08:32 | Outpatient (BNVA) | payer OTHER, SELFPAY | PROVIDERS: PCP Emergency Medicine Emergency Medical Services; Visit Provider Specialist | DX: G43.711 Chronic migraine without aura, intractable, with status migrainosus (principal) | CPT/HCPCS: 64615; J0585 ==

== ENCOUNTER → 2023-05-13 08:21 | Outpatient (BNVA) | payer OTHER, SELFPAY | PROVIDERS: PCP Emergency Medicine Emergency Medical Services; Visit Provider Specialist | DX: G43.711 Chronic migraine without aura, intractable, with status migrainosus (principal); M54.12 Radiculopathy, cervical region; H91.90 Unspecified hearing loss, unspecified ear | CPT/HCPCS: 64615; 99214; J0585 ==

== ENCOUNTER → 2023-06-10 11:24 | Outpatient (BNVA) | payer OTHER, SELFPAY | PROVIDERS: PCP Emergency Medicine Emergency Medical Services; Visit Provider Internal Medicine Cardiovascular Disease | DX: I25.10 Atherosclerotic heart disease of native coronary artery without angina pectoris (principal); I11.0 Hypertensive heart disease with heart failure; I50.9 Heart failure, unspecified; I48.0 Paroxysmal atrial fibrillation; Z79.01 Long term (current) use of anticoagulants; Z79.82 Long term (current) use of aspirin; E78.2 Mixed hyperlipidemia; G43.711 Chronic migraine without aura, intractable, with status migrainosus | CPT/HCPCS: 99214 ==

== ENCOUNTER → 2023-06-23 09:11 | Outpatient (BNVA) | payer OTHER, SELFPAY | PROVIDERS: PCP Emergency Medicine Emergency Medical Services; Visit Provider Specialist | DX: M12.812 Other specific arthropathies, not elsewhere classified, left shoulder | CPT/HCPCS: 73030; 99214 ==

== ENCOUNTER → 2023-07-19 08:33 | Outpatient (BNVA) | payer OTHER, SELFPAY | PROVIDERS: PCP Emergency Medicine Emergency Medical Services; Visit Provider Thoracic Surgery (Cardiothoracic Vascular Surgery) | DX: I96 Gangrene, not elsewhere classified (principal); L97.412 Non-pressure chronic ulcer of right heel and midfoot with fat layer exposed | CPT/HCPCS: 11042; 97597; 99213 ==

== ENCOUNTER 2023-07-28 12:19 | Outpatient (CLI) | payer OTHER, SELFPAY ==
--- NOTE | 2023-07-28 12:45 | USR_ITS ---
PROCEDURE INFORMATION: Exam: US Duplex Right Lower Extremity Arteries Or Arterial Bypass Grafts Exam date and time: 07/28/2023 12:41 PM Age: 77 years old Clinical indication: Other: Claudication; Additional info: Nonhealing ulcer to right foot; Pain TECHNIQUE: Imaging protocol: Right Real-time duplex scan of the arteries or arterial bypass grafts of the right lower extremity with 2-D locke scale, color Doppler flow and spectral waveform analysis. Images documented and saved. COMPARISON: DX XR femur RT min 2V* [id number] 06/24/2023 11:30 AM FINDINGS: Right common femoral artery: There is trickle flow Low amplitude monophasic waveform. PSV 16 cm/s diffuse severe nonocclusive disease No pseudoaneurysm in the inguinal region. Right superficial femoral artery: No occlusion or significant stenosis. Normal waveform. Right popliteal artery: Severe diffuse nonocclusive disease. Low amplitude trickle flow waveform. Right calf/foot arteries: Severe diffuse nonocclusive disease. Trickle flow waveform waveforms. PSV 17 cm/s Dorsalis pedis artery has a PSV 14.7 cm/s Soft tissues: No hematoma or collection. US/[place] [id number] IMPRESSION: Severe diffuse nonocclusive disease in the right leg a arterial system
== END 2023-07-28 12:20 | disposition home or self-care (01) ==
PROVIDERS: PCP Emergency Medicine Emergency Medical Services; Visit Provider Thoracic Surgery (Cardiothoracic Vascular Surgery)
DX: I73.89 Other specified peripheral vascular diseases (principal); L97.519 Non-pressure chronic ulcer of other part of right foot with unspecified severity
CPT/HCPCS: 93926

== ENCOUNTER 2023-07-29 14:04 | Outpatient (CLI) | payer OTHER, SELFPAY ==
--- NOTE | 2023-07-29 14:30 | MR_ITS ---
WS: [id number] MRI LEFT SHOULDER HISTORY: left shoulder pain COMPARISON: Radiograph 06/23/2023 TECHNIQUE: Multiplanar sequences of the shoulder joint are submitted. Severe AC joint arthritis. Osteophytes and joint space narrowing. There is fluid along the AC ligamen t. Osteophyte encroachment upon the supraspinatus tendon. Moderate amount of fluid in the subacromial and subdeltoid bursa. No significant subacromial impingement. No os acromion. Normal position of the biceps tendon. There is increased fluid within the biceps tendon sheath. Severe glenohumeral joint narrowing. Osteophytic ridging around the humeral head. Loss of cartilage o monet the humeral head and the glenoid. There is a small amount of marrow edema involving the superior glenoid. There is additional marrow edema in the humeral head. There is increased T2 signal involving the coracohumeral ligament suggesting high-grade tear. Only mild atrophy of the supraspinatus muscle. Marked thickening and tendinopathy in the distal supra spinatus tendon. No tear or retraction. There is a large amount of fluid in the subscapularis bursa. There is fluid extending along the tendon sheath of the subscapularis tendon. This is usually seen wi th a tear of the tendon. No tear is identified. There is normal edema within the subscapularis muscle . Diffusely abnormal labrum. Loss of the normal labrum is diffuse. Most significant abnormalities invol ving the superior and anterior labrum. IMPRESSION: 1. 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 2. Diffuse signal abnormality within the labrum. Most significant abnormality is involving the super ior and anterior labrum. 3. Mild edema and atrophy of the subscapularis muscle. There is fluid along the tendon sheath but no tear identified. 4. Moderate sprain coracohumeral ligament. 5. Marked tendinopathy distal supraspinatus tendon. 6. Biceps tenosynovitis. 7. Marked osteophytic ridging around the humeral head.
== END 2023-07-29 14:05 | disposition home or self-care (01) ==
LOC: RAD 14:04
PROVIDERS: PCP Emergency Medicine Emergency Medical Services; Visit Provider Specialist
DX: M19.012 Primary osteoarthritis, left shoulder (principal); M62.512 Muscle wasting and atrophy, not elsewhere classified, left shoulder; S43.412A Sprain of left coracohumeral (ligament), initial encounter; X58.XXXA Exposure to other specified factors, initial encounter; M75.22 Bicipital tendinitis, left shoulder; M25.712 Osteophyte, left shoulder
CPT/HCPCS: 73221

== ENCOUNTER → 2023-08-02 10:34 | Outpatient (BNVA) | payer OTHER, SELFPAY | PROVIDERS: PCP Emergency Medicine Emergency Medical Services; Visit Provider Specialist | DX: I96 Gangrene, not elsewhere classified; M17.11 Unilateral primary osteoarthritis, right knee; L97.411 Non-pressure chronic ulcer of right heel and midfoot limited to breakdown of skin | CPT/HCPCS: 11042; 20610; 73560; 73565; 97597; 99204; A6021; J1040; J1100; J2795 ==

== ENCOUNTER → 2023-08-04 09:09 | Outpatient (BNVA) | payer OTHER, SELFPAY | PROVIDERS: PCP Emergency Medicine Emergency Medical Services; Visit Provider Specialist | DX: M12.812 Other specific arthropathies, not elsewhere classified, left shoulder (principal) | CPT/HCPCS: 20610; 99213; J1100; J2795; J3301 ==

== ENCOUNTER 2023-08-11 09:22 | Outpatient (CLI) | payer OTHER, SELFPAY ==
[2023-08-11 09:50] LABS: Blood Urea Nitrogen 23 mg/dL (8-23)
--- NOTE | 2023-08-11 10:00 | CTR_ITS ---
PROCEDURE INFORMATION: Exam: CTA Abdominal Aorta and Bilateral Lower Extremities (Run-off) With Contrast Exam date and time: 08/11/2023 9:54 AM Age: 77 years old Clinical indication: Prior surgery; Surgery date: 6+ months; Surgery type: Back , left ankle; Patient HX: Non healing right foot ulcers, right foot pain; Additional info: Peripheral aterial disease; Non healing ulcers; Rest pain TECHNIQUE: Imaging protocol: Computed tomographic angiography of the of the abdominal aorta, pelvis and bilateral lower extremities with contrast. 3D rendering (Not supervised by radiologist): MIP and/or 3D reconstructed images were created by the technologist. Radiation optimization: All CT scans at this facility use at least one of these dose optimization techniques: automated exposure control; mA and/or kV adjustment per patient size (includes targeted exams where dose is matched to clinical indication); or iterative reconstruction. Contrast material: OMNIPAQUE 350; Contrast volume: 130 ml; Contrast route: INTRAVENOUS (IV); COMPARISON: [place] [id number] 07/28/2023 12:41 PM RADIATION DOSE METRICS: Total DLP (mGy-cm): 1700 FINDINGS: Aorta: Severe atherosclerotic disease of the abdominal aorta and iliac arteries. Celiac trunk and mesenteric arteries: No occlusion or significant stenosis. Renal arteries: No occlusion or significant stenosis. Right iliac arteries: The right common iliac, external iliac arteries are patent. Right femoral/popliteal arteries: Severe stenosis with near-complete occlusion in the right common femoral artery and origin of the right superficial femoral artery secondary to calcified plaque. There is 50% stenosis in the distal right superficial femoral artery. There is occlusion of the distal most aspect of the right superficial femoral artery secondary to soft and calcified plaque. There is occlusion of the right popliteal artery secondary to calcified plaque with reconstitution of the vessel distally. Right infrapopliteal arteries: The right anterior tibial artery is opacified down to the level of the proximal calf. The right posterior tibial and peroneal arteries are opacified down to the level of the ankle. Left iliac arteries: The left common iliac and external iliac arteries patent. Left femoral/popliteal arteries: Severe stenosis secondary to calcified plaque in the left common femoral artery with near-complete occlusion. Near-complete occlusion of the origin and proximal aspect of the left superficial femoral artery secondary to calcified and soft plaque. The distal left superficial femoral artery is patent. The left popliteal artery is patent. Left infrapopliteal arteries: The left anterior tibial artery is opacified down to level of the mid calf. The left posterior tibial and peroneal arteries opacified down to the level of the ankle. Coronary arteries: Coronary arterial atherosclerotic calcifications are present. Liver: No mass. Gallbladder and bile ducts: Unremarkable. No calcified stones. No ductal dilation. Pancreas: Unremarkable. No mass. No ductal dilation. Spleen: Normal. No splenomegaly. Adrenal glands: Normal. No mass. Kidneys and ureters: Normal. No mass. Stomach and bowel: Unremarkable. No obstruction. No mucosal thickening. Appendix: No evidence of appendicitis. Urinary bladder: Unremarkable. No mass. Reproductive: Unremarkable as visualized. Intraperitoneal space: Unremarkable. No free air. No significant fluid collection. Lymph nodes: No lymphadenopathy. Bones/joints: Severe degenerative changes with subcortical cysts and architectural distortion of the right 1st metatarsophalangeal joint. Extensive fixation hardware along the lateral aspect of the left hindfoot. Soft tissues: Unremarkable. CT/CT angio abd aorta runof [id number] IMPRESSION: 1. The right common iliac, external iliac arteries are patent. 2. Severe stenosis with near-complete occlusion in the right common femoral artery and origin of the right superficial femoral artery secondary to calcified plaque. 3. There is 50% stenosis in the distal right superficial femoral artery. There is occlusion of the distal most aspect of the right superficial femoral artery secondary to soft and calcified plaque. 4. There is occlusion of the right popliteal artery secondary to calcified plaque with reconstitution of the vessel distally. 5. The right anterior tibial artery is opacified down to the level of the proximal calf. The right posterior tibial and peroneal arteries are opacified down to the level of the ankle. 6. The left common iliac and external iliac arteries patent. 7. Severe stenosis secondary to calcified plaque in the left common femoral artery with near-complete occlusion. 8. Near-complete occlusion of the origin and proximal aspect of the left superficial femoral artery secondary to calcified and soft plaque. The vessel reconstitutes immediately. 9. The distal left superficial femoral artery is patent. The left popliteal artery is patent. 10. The left anterior tibial artery is opacified down to level of the mid calf. The left posterior tibial and peroneal arteries opacified down to the level of the ankle.
[2023-08-11] MEDS: iohexol 350 mg/mL 500 mL Btl (per mL) IV (10:11)
== END 2023-08-11 09:23 | disposition home or self-care (01) ==
LOC: RAD 09:22
PROVIDERS: PCP Emergency Medicine Emergency Medical Services; Visit Provider Thoracic Surgery (Cardiothoracic Vascular Surgery)
DX: I73.9 Peripheral vascular disease, unspecified (principal); I10 Essential (primary) hypertension; R58 Hemorrhage, not elsewhere classified; Z09 Encounter for follow-up examination after completed treatment for conditions other than malignant neoplasm; Z87.2 Personal history of diseases of the skin and subcutaneous tissue
CPT/HCPCS: 75635; 82565; 84520; 99213; Q9967

== ENCOUNTER → 2023-08-12 08:53 | Outpatient (BNVA) | payer OTHER, SELFPAY | PROVIDERS: PCP Emergency Medicine Emergency Medical Services; Visit Provider Specialist | DX: M54.12 Radiculopathy, cervical region (principal); G43.711 Chronic migraine without aura, intractable, with status migrainosus | CPT/HCPCS: 64615; 99214; J0585 ==

== ENCOUNTER → 2023-08-13 12:28 | Outpatient (BNVA) | payer OTHER, SELFPAY | PROVIDERS: PCP Emergency Medicine Emergency Medical Services; Visit Provider Specialist | DX: G56.01 Carpal tunnel syndrome, right upper limb (principal); R29.898 Other symptoms and signs involving the musculoskeletal system | CPT/HCPCS: 95911 ==

== ENCOUNTER → 2023-08-18 07:44 | Outpatient (BNVA) | payer OTHER, SELFPAY | PROVIDERS: PCP Emergency Medicine Emergency Medical Services; Visit Provider Thoracic Surgery (Cardiothoracic Vascular Surgery) | DX: L89.613 Pressure ulcer of right heel, stage 3 (principal); L89.893 Pressure ulcer of other site, stage 3 | CPT/HCPCS: 97597; A6212 ==

== ENCOUNTER → 2023-08-19 13:37 | Outpatient (BNVA) | payer OTHER, SELFPAY | PROVIDERS: PCP Emergency Medicine Emergency Medical Services; Visit Provider Internal Medicine | DX: I73.9 Peripheral vascular disease, unspecified (principal); I25.10 Atherosclerotic heart disease of native coronary artery without angina pectoris; I11.0 Hypertensive heart disease with heart failure; I50.9 Heart failure, unspecified; I48.0 Paroxysmal atrial fibrillation; E78.2 Mixed hyperlipidemia; G43.711 Chronic migraine without aura, intractable, with status migrainosus | CPT/HCPCS: 99214 ==

== ENCOUNTER → 2023-08-25 07:47 | Outpatient (BNVA) | payer OTHER, SELFPAY | PROVIDERS: PCP Emergency Medicine Emergency Medical Services; Visit Provider Thoracic Surgery (Cardiothoracic Vascular Surgery) | DX: I73.9 Peripheral vascular disease, unspecified (principal); L97.411 Non-pressure chronic ulcer of right heel and midfoot limited to breakdown of skin | CPT/HCPCS: 97597; A6212 ==

== ENCOUNTER 2023-08-26 07:54 | Observation (INO) | payer OTHER, SELFPAY ==
[2023-08-26] VITALS (27 sets, daily range): BP systolic 98–176; BP diastolic 55–99; PULSE 56–65; RESP 10–23; TEMP 36.4–36.6; O2SAT 93–100; BMI 30.4; BMI 32.4
--- NOTE | 2023-08-26 06:00 | XACV_ITS ---
Ht: 175 cm Wt: 88 kg BSA: 2.10 m2 Any Known Allergies: Other Gender: Male : 1945 Exam Type: Invasive Peripheral Vascular Procedure(s): Procedure Description: Diagnostic procedure Procedure Description: Peripheral Cath Diagnostic Procedure Procedure Description: Abdominal aortic angiography Procedure Description: Lower extremities' angiography Exam Priority: Routine Abdominal Diagnostic Findings Distal abdominal aorta: Patent. Lower Extremity Diagnostic Findings INDICATION: Chronic limb threatening ischemia of right leg. Right lower extremity findings: Right common iliac artery is patent. Right external iliac artery is patent. Right internal iliac artery is patent. Right common femoral artery is heavily calcified with subtotal occlusion. Right profunda artery is patent. Right SFA is totally occluded in ostial segment with very heavy calcification and reconstitution via collaterals in proximal segement. Distal SFA is occluded with heavy calcification. Right popliteal artery is occluded in the proximal segment with reconstitution via collaterals of mid to distal poplieal vessel. Below the knee patient has 2 vessel runoff with patent posterior tibial and peroneal arteries. Anterior tibial artery is occluded. Left lower extremity findings: Left common iliac artery is patent. Left external iliac artery is patent. Left internal iliac artery is patent. Left common femoral artery is heavily calcified with 80-90% stenosis. Left profunda artery is patent. Left SFA is ostially occluded. It reconstitutes via collaterals in mid segment. Left popliteal artery is patent. Below the knee patient has 2 vessel run off with patent peroneal and posterior tibial arteries. Anterior tibial artery is occluded. Lower Extremity Interventional Findings Procedure detail: After diagnostic imaging was performed, we switched short access sheath from left common femoral artery to long Cook sheath and went up and over to right external iliac artery. Using Glidewire and seeker support catheter we attempted to cross the subtotally to totally occluded heavily calcified segment of common femoral/ostial SFA. However after several attempts, wire could not cross the occluded segment. Command wire was also used to try to cross the stenosis however was unsuccessful. At this time we aborted further attempts and decided to send patient back to vascular surgery for opinion regarding possible bypass. Patient left the labourers in a stable condition. Conclusions Severe bilateral peripheral artery disease. Subtotal to total occlusion of right common femoral artery/ostial SFA. Also has total occlusion of distal SFA and subtotal occlusion of proximal popliteal artery. Mid to distal popliteal artery reconstitutes. Attempt to cross common femoral/ostial SFA unsuccessful secondary to very heavy calcification. We will get opinion from vascular surgery (Dr Rey) for possible bypass. If not an option, then can refer to tertiary care center for further evaluation.. Recommendations Aggressive risk factor modification. Outpatient cardiology follow up in 2 weeks. Hemodynamic Data Phase:Rest AO : 164.0 / 79.0 ( 107.0 ) @ 8:57:00 AM 147.0 / 79.0 ( 107.0 ) @ 8:58:00 AM 146.0 / 79.0 ( 107.0 ) @ 9:02:00 AM 167.0 / 76.0 ( 109.0 ) @ 9:13:00 AM Access Site Site: Left Femoral artery Sheath Size: 6 Fr Hemost... Success: Unsuccessful Procedure Details Findings Procedure Consent Obtained. Admit Source: Out Patient. Pre-Procedure Time Out. Identified patient by full name and date of as verbalized by the patient/guarantor. Does the consent match the physician's order: Yes. Accurate & Complete Informed Consent: Yes. Inpatient/Outpatient History & Physical on Chart: Yes. If H&P is completed, is and addenduem needed: Yes; If yes, is the addendum complete: Yes. Visualize and Verify Site with Patient/Guarantor: N/A. Relevant Radiology Images available: N/A. Pre-op teaching completed and patient verbalized understanding. The risks, benefits, and alternatives of sedation and/or procedure were discussed by physician. The patient agrees to continue. Procedure started. Country Manager Indications: Other: PVD. Correct patient, site and procedure confirmed by cath team. Current diagnosis: PVD. PERRLA. Strong, equal hand product safety professional bilaterally. Lungs clear x 5 lobes. IV Site on Arrival: 20 gauge in the left anticubital. IV Fluids: 0.9% NaCl at KVO. 0 mL infused prior to labourers. Pre Procedural Pulses: bilateral posterior tibial was Doppled. Pre Procedural Pulses: bilateral dorsalis pedis was Doppled. Oxygen started at 2liters/min via nasal canula. Pre Procedural Pulses: right radial was 3+. left groin was prepped with chloroprep then draped in the usual sterile fashion. right groin was prepped with chloroprep then draped in the usual sterile fashion. Baseline sample Acquired. HR: 61 BPM. Physician notified. Physician arrived. Physician scrubbed in. Immediate Pre-Procedure Time Out. Correct Patient: Yes; Correct Procedure: Yes; Correct Site: Yes; Correct Patient Position: Yes; Correct Supplies: Yes; Dried Flammable Prep: Yes; Blood Products Available: N/A;. Lidocaine 1% infiltrated to the left groin. Arterial access obtained with micropuncture set. A 5F UF catheter in over wire. Abdominal aortogram performed in AP @ 10 mL/sec for a total of 30 mL. Glidewire inserted. Glidewire removed. Right common iliac selected and arteriogram with runoff performed @ 10 mL/sec for a total of 30 mL. Glidewire inserted. UF catheter removed over the Glidewire. 6Fr short sheath exchanged for 6 Fr 45cm Flexor sheath. Seeker catheter inserted over the wire. Glidewire removed. Hand injection performed through the Seeker catheter. Seeker catheter removed. Right common iliac selected and arteriogram with runoff performed in DSA @ 10 mL/sec for a total of 10 mL. Command wire and Seeker catheter inserted through the sheath. Command wire removed. Glidewire inserted. Glidewire and Seeker catheter removed. 6 Fr Flexor sheath exchanged for 6 Fr short sheath over the standard wire. Sheath injected in Left common femoral artery and runoff performed. Left common femoral selected and arteriogram with runoff performed @ 10 mL/sec for a total of 10 mL. Physician scrubbed out. Post Procedure: Pulses reassessed and unchanged. PERRLA. Strong, equal hand product safety professional bilaterally. No VTE prophylaxis required. Medication's Wasted: Other = Fentanyl 125 mcg. Medication's Wasted: Heparin = 1000 u. Post-op diagnosis: Severe bilateral PAD. Complications: none. Estimated blood loss: 5mL-10mL. Responsiveness - Normal response to verbal stimuli; alert and oriented, PERRLA. Airway - Unaffected, no intervention required; spontaneous ventilation. Circulation: W/N/L, pulses unchanged. Nausea/Vomiting: No. Procedure completed. Patient transferred by bed to CPRU. Vital chart was stopped. Procedure Medications Start: 8:53 AM Stop: 8:53 AM Medication: Benadryl Amount: 50 mg Route: I.V. Start: 8:53 AM Stop: 8:53 AM Medication: Versed Amount: 1 mg Route: I.V. Start: 8:53 AM Stop: 8:53 AM Medication: Fentanyl Amount: 25 mcg Route: I.V. Start: 8:54 AM Stop: 8:54 AM Medication: Versed Amount: 1 mg Route: I.V. Start: 9:02 AM Stop: 9:02 AM Medication: Fentanyl Amount: 25 mcg Route: I.V. Start: 9:34 AM Stop: 9:34 AM Medication: Hydralazine Amount: 10 mg Route: I.V. Start: 9:40 AM Stop: 9:40 AM Medication: Fentanyl Amount: 25 mcg Route: I.V. I, the attending physician, have reviewed and verified all procedure medications. Yes, all medications given per verbal order History/Risk Factors Hypertension: Yes Dyslipidemia: Yes Peripheral Arterial Disease (PAD): Yes Myocardial Infarction (TX): Yes Obesity: Yes Renal Disease: No Tobacco Use: Never Prior Interventions PCI: No CABG: No Valve Surgery: No Report Signatures Finalized by David Ontiveros MD on 08/29/2023 12:55 PM
[2023-08-26 07:43] LABS: Basophils % 0.4 %; Eosinophils # 0.1 10^3/uL (0.0-0.8); Eosinophils % 1.8 %; Hematocrit 37.8 % (37-53); Lymphocytes # 1.2 10^3/uL (0.8-4.8); Lymphocytes % 21.7 %; Mean Corpuscular HGB Conc 33.9 g/dL (30-55); Mean Corpuscular Hemoglobin 33.7 pg (27-33); Mean Corpuscular Volume 99.5 fl (82-101); Mean Platelet Volume 9.8 fL (7.4-10.4); Monocytes # 0.5 10^3/uL (0.2-0.9); Monocytes % 8.5 %; Neutrophils # 3.65 10^3/uL (1.8-7.7); Neutrophils % 67.2 %; Nucleated Red Blood Cells % 0 %; Platelet Count 184 10^3/cmm (157-399); Red Cell Distribution Width 13.2 % (12.1-15.1); White Blood Count 5.43 10^3/uL (3.29-11.43)
[2023-08-26 08:11] LABS: Anion Gap 17.1 (5-19); Blood Urea Nitrogen 25 mg/dL (8-23); Calcium 8.8 mg/dL (8.5-10.5); Carbon Dioxide 23 mmol/L (22-29); Chloride 104 mmol/L (98-107); Glucose 121 mg/dL (65-115); Osmolality Calculated 296 mOsm/kg (285-295); Potassium 4.1 mmol/L (3.5-5.1); Sodium 140 mmol/L (136-145)
--- NOTE | 2023-08-26 08:35 | W.PM.OPSUD ---
Surgery/Procedure H&P Update DATE OF PROCEDURE: August 26, 2023 DATE H&P PERFORMED: 08/19/22 H&P UPDATE INFORMATION: I have reviewed H&P completed within last 30 days, I have examined patient prior to procedure and No changes to prior documentation PREOP DIAGNOSIS: Chronic limb threatening ischemia of right leg PRIMARY INDICATION FOR PROCEDURE: Chronic limb threatening ischemia of right leg PLANNED PROCEDURE: Operation Date: 08/26/23 07:00 Proposed Procedures p Peripheral Angio 56873,I73.9(Not Applicable) - David Ontiveros M.D Possible peripheral intervention PATIENT REASSESSED PRIOR TO SEDATION, WITH NO CHANGE NOTED: Yes PHYSICAL EXAM: alert, oriented x 3, clear to auscultation bilaterally and regular rate & rhythm AIRWAY EVAL/ANESTHESIA PLAN: normal airway, ASA III, Local Anesthesia, Risks, benefits & alternatives of sedation and/or procedure discussed and Patient agrees to continue as planned ADDITIONAL INFORMATION: Moderate sedation
--- NOTE | 2023-08-26 09:45 | SUR.PHASEII ---
POST CATH NOTE Received patient from catheterization laboratory technician. Status post peripheral angiogram via the left femoral approach. Sheath removed by catheterization laboratory technician staff manager lpn. Site is hemostatic and free of hematoma formation at this time. Verbal post cath instcution went over with the patient at this time. He understands well. Vitals and assessments per flowsheets. Call light in place. Family at bedside. Informed to call for needs.
[2023-08-26] MEDS: sodium chloride 0.9% 1,000 ML 100 ML IV (10:00)
== END 2023-08-26 16:29 | disposition home or self-care (01) ==
LOC: CSU 07:54
PROVIDERS: Admitting Provider Internal Medicine; PCP Emergency Medicine Emergency Medical Services; Visit Provider Internal Medicine
DX: I70.203 Unspecified atherosclerosis of native arteries of extremities, bilateral legs (principal); I70.92 Chronic total occlusion of artery of the extremities; I10 Essential (primary) hypertension; E78.5 Hyperlipidemia, unspecified; I25.2 Old myocardial infarction; E66.9 Obesity, unspecified; Z68.22 Body mass index [BMI] 22.0-22.9, adult
CPT/HCPCS: 36415; 75625; 75716; 80048; 85025; 96361; 96365; 99152; 99153; C1769; C1887; C1894; G0378; J0360; J1200; J1644; J2250; J3010; J7030; Q9967

== ENCOUNTER → 2023-08-31 14:34 | Outpatient (BNVA) | payer OTHER, SELFPAY | PROVIDERS: PCP Emergency Medicine Emergency Medical Services; Visit Provider Dermatology | DX: L57.0 Actinic keratosis (principal); L98.8 Other specified disorders of the skin and subcutaneous tissue; L81.4 Other melanin hyperpigmentation; L57.8 Other skin changes due to chronic exposure to nonionizing radiation; L73.8 Other specified follicular disorders | CPT/HCPCS: 17000; 99213 ==

== ENCOUNTER → 2023-09-01 07:52 | Outpatient (BNVA) | payer OTHER, SELFPAY | PROVIDERS: PCP Emergency Medicine Emergency Medical Services; Visit Provider Thoracic Surgery (Cardiothoracic Vascular Surgery) | DX: I73.9 Peripheral vascular disease, unspecified (principal); L97.411 Non-pressure chronic ulcer of right heel and midfoot limited to breakdown of skin; Z09 Encounter for follow-up examination after completed treatment for conditions other than malignant neoplasm | CPT/HCPCS: 97597; A6021; A6210 ==

== ENCOUNTER 2023-09-08 11:32 | Outpatient (CLI) | payer OTHER, SELFPAY ==
--- NOTE | 2023-09-08 11:45 | MR_ITS ---
WS: [id number] MRI CERVICAL SPINE NONCONTRAST HISTORY: M54.12 - Radiculopathy, cervical region COMPARISON: None available. Technique: Multiplanar, multisequence noncontrast imaging of the cervical spine. Anterior cervical fusion from C4-C7 with straightening of the cervical spine. Interbody disc spacers with fusion at C4-5, C5-6 and C6-7. There is mild disc space narrowing at C3-4 and C7-T1. Mild anteri or wedging of T1 with no marrow edema. Signal within the cervical cord is normal. Visualized posterior fossa is unremarkable. Craniocervical junction, C1 and C2 relationship, odontoid process and soft tissues are normal. C2-C3: Small RIGHT foraminal osteophytes. No stenosis. C3-C4: Mild annular disc bulging with bilateral moderate facet arthritis. Small bilateral foraminal o steophytes. Mild bilateral foraminal stenosis. C4-C5: Mild osteophytic ridging. Minimal foraminal narrowing. C5-C6: Mild bilateral foraminal narrowing and facet arthritis. No stenosis centrally. C6-C7: No central stenosis. C7-T1: Small RIGHT foraminal osteophytes. Mild RIGHT foraminal stenosis. There is a small central disc protrusion and osteophyte at T1 to causing mild encroachment upon the v entral cord but no contact. IMPRESSION: 1. Status post anterior cervical fusion from C4-C7 with interbody spacers. No complications along th e fusion site. 2. Mild anterior wedging of T7. No marrow edema. 3. No high-grade central stenosis. 4. Facet joint arthritis and foraminal stenosis throughout the cervical spine as above. 5. Small central disc osteophyte at T1-2.
== END 2023-09-08 11:33 | disposition home or self-care (01) ==
LOC: RAD 11:33
PROVIDERS: PCP Emergency Medicine Emergency Medical Services; Visit Provider Specialist
DX: M47.22 Other spondylosis with radiculopathy, cervical region (principal); Z98.1 Arthrodesis status; M48.02 Spinal stenosis, cervical region; M25.78 Osteophyte, vertebrae; M48.52XA Collapsed vertebra, not elsewhere classified, cervical region, initial encounter for fracture; I73.9 Peripheral vascular disease, unspecified; I10 Essential (primary) hypertension; I25.10 Atherosclerotic heart disease of native coronary artery without angina pectoris; E78.5 Hyperlipidemia, unspecified; Z95.1 Presence of aortocoronary bypass graft; Z95.5 Presence of coronary angioplasty implant and graft; I96 Gangrene, not elsewhere classified; L97.411 Non-pressure chronic ulcer of right heel and midfoot limited to breakdown of skin
CPT/HCPCS: 72141; 97597; 99213; A6212

== ENCOUNTER → 2023-09-15 07:48 | Outpatient (BNVA) | payer OTHER, SELFPAY | PROVIDERS: PCP Emergency Medicine Emergency Medical Services; Visit Provider Thoracic Surgery (Cardiothoracic Vascular Surgery) | DX: I96 Gangrene, not elsewhere classified (principal); L97.411 Non-pressure chronic ulcer of right heel and midfoot limited to breakdown of skin | CPT/HCPCS: 97597; A6021; A6212 ==

== ENCOUNTER → 2023-09-22 08:02 | Outpatient (BNVA) | payer OTHER, SELFPAY | PROVIDERS: PCP Emergency Medicine Emergency Medical Services; Visit Provider Thoracic Surgery (Cardiothoracic Vascular Surgery) | DX: I73.9 Peripheral vascular disease, unspecified (principal); L97.411 Non-pressure chronic ulcer of right heel and midfoot limited to breakdown of skin | CPT/HCPCS: 97597; A6021; A6212 ==

== ENCOUNTER → 2023-09-29 08:36 | Outpatient (BNVA) | payer OTHER, SELFPAY | PROVIDERS: PCP Emergency Medicine Emergency Medical Services; Visit Provider Thoracic Surgery (Cardiothoracic Vascular Surgery) | DX: I73.9 Peripheral vascular disease, unspecified (principal); L97.411 Non-pressure chronic ulcer of right heel and midfoot limited to breakdown of skin | CPT/HCPCS: 97597; A6212 ==

== ENCOUNTER → 2023-10-06 08:18 | Outpatient (BNVA) | payer OTHER, SELFPAY | PROVIDERS: PCP Emergency Medicine Emergency Medical Services; Visit Provider Thoracic Surgery (Cardiothoracic Vascular Surgery) | DX: I73.9 Peripheral vascular disease, unspecified (principal); L97.411 Non-pressure chronic ulcer of right heel and midfoot limited to breakdown of skin; L97.521 Non-pressure chronic ulcer of other part of left foot limited to breakdown of skin | CPT/HCPCS: 97597; A6212 ×2; A6248 ==

== ENCOUNTER 2023-10-13 07:17 | Outpatient (CLI) | payer OTHER, SELFPAY ==
--- NOTE | 2023-10-13 07:28 | ECG_ITS ---
[facility] Test Date: 2023-10-13 Pat Name: Chris Reid Department: Room: Gender: Male [employer]: : 1945 Requested By: David Ontiveros Order Number: [id number] Radha MD: David Ontiveros M.D. Interpretive Statements NAME OF STUDY: LEXISCAN SESTAMIBI STRESS TEST INDICATION: [Chest Pain, ] Procedure: At the baseline, the blood pressure was 189/99 mmHg with a heart rate of 56 bpm. The electrocardiogram showed sinus bradycardia with no significant ST-T wave changes. Q waves noted in inferior leads. The Lexiscan was infused over a period of 20 seconds. A total of 0.4 mg of Lexiscan was infused. The stress phase was continued for a total of 5 minutes. Heart rate was at the end of stress phase was 60 bpm and a blood pressure of 177/95 mmHg. The EKG at the peak infusion revealed normal sinus rhythm with no significant ST-T wave changes. Sestamibi was injected 20 seconds after the Lexiscan infusion. Blood pressure at the end of recovery phase was 169/95 mmHg with a heart rate of 59bpm. Conclusion: 1. Normal EKG response to Lexiscan infusion 2. No Lexiscan induced chest pain or cardiac arrhythmia. 3. Normal blood pressure and heart rate response. 4. Sestamibi/sestamibi perfusion scan pending; see separate report. Electronically Signed On 10-21-2023 12:41:36 CDT by David Ontiveros M.D. [email or web address]
[2023-10-13 07:41] VITALS: BMI 29.7
--- NOTE | 2023-10-13 07:41 | NMCV_ITS ---
NM amador perf SPECT r/s* [id number] Chris Reid Age: 77 Gender: M : 1945 Exam Date: 10/13/2023 08:15 Ordering Phys: David Ontiveros M.D ([email or web address]) Technologist: CHIN Caceres Exam Location: [facility] Indications: CHEST PAIN STRESS TEST Please see separate stress test report in [facility] for full findings IMAGE PROTOCOL Rest/Stress 1 Lexiscan Day Radiopharmaceutical Dose (mCi) Administration Site Administered by Rest: Tc-99m 11.0 IV CHIN Johnson Sestamibi Stress:Tc-99m 32.4 IV CHIN Johnson Sestamibi Rest: 13-Oct-2023 60 Discovery 630 Stress: 13-Oct-2023 30 Discovery 630 0.4mg Lexiscan. Supine position only as patient was unable to lay prone. SPECT RESULTS Technical Quality: Excellent Raw Data Analysis: Normal Image Corrections: No attenuation or motion correction applied Summed Stress Score: 9 Summed Rest Score: 6 Summed Difference Score: 3 PERFUSION FINDINGS There is a large area of partially reversible perfusion defect noted in the inferior wall. This is consistent with large area of prior infarct with significant medium to large sized area of kiana-infarct ischemia seen in the RCA territory. There is a medium sized area of partially reversible perfusion defect noted in inferolateral wall. This is consistent with medium sized area of prior infarct with small to medium sized area of kiana-infarct ischemia in left circumflex artery territory. FUNCTIONAL RESULTS (calculated via Gated SPECT) Stress Image LV EF (%): 59 Stress EDV (mL):128 TID: 0.93 Stress ESV (mL):53 FUNCTIONAL FINDINGS: There is normal left ventricular systolic function. IMPRESSIONS 1. Abnormal myocardial perfusion imaging with medium to large sized area of kiana-infarct ischemia seen in the RCA territory 2. Small to medium sized area of kiana-infarct ischemia is seen in the left circumflex artery territory. 3. LV systolic function is normal David Ontiveros MD (Electronically Signed) Final Date: 16 October 2023 10:02 S
[2023-10-13] MEDS: regadenoson 0.4 Mg/5 ml Syringe 0.400000000000000022 MG IVP (08:54)
[2023-10-13 09:30] VITALS: BP 169/95; PULSE 63
== END 2023-10-13 07:18 | disposition home or self-care (01) ==
LOC: CDL 07:18
PROVIDERS: PCP Emergency Medicine Emergency Medical Services; Visit Provider Internal Medicine
DX: R07.9 Chest pain, unspecified (principal); I73.9 Peripheral vascular disease, unspecified; L97.411 Non-pressure chronic ulcer of right heel and midfoot limited to breakdown of skin; L97.511 Non-pressure chronic ulcer of other part of right foot limited to breakdown of skin
CPT/HCPCS: 36415; 78452; 93017; 96374; 97597; A9500; J2785

== ENCOUNTER → 2023-10-20 08:42 | Outpatient (BNVA) | payer OTHER, SELFPAY | PROVIDERS: PCP Emergency Medicine Emergency Medical Services; Visit Provider Thoracic Surgery (Cardiothoracic Vascular Surgery) | DX: I73.9 Peripheral vascular disease, unspecified (principal); L97.511 Non-pressure chronic ulcer of other part of right foot limited to breakdown of skin; L97.411 Non-pressure chronic ulcer of right heel and midfoot limited to breakdown of skin; S80.821D Blister (nonthermal), right lower leg, subsequent encounter; X58.XXXD Exposure to other specified factors, subsequent encounter | CPT/HCPCS: 97597; A6212 ==

== ENCOUNTER → 2023-10-27 08:43 | Outpatient (BNVA) | payer OTHER, SELFPAY | PROVIDERS: PCP Emergency Medicine Emergency Medical Services; Visit Provider Thoracic Surgery (Cardiothoracic Vascular Surgery) | DX: I96 Gangrene, not elsewhere classified (principal); L97.411 Non-pressure chronic ulcer of right heel and midfoot limited to breakdown of skin; L97.521 Non-pressure chronic ulcer of other part of left foot limited to breakdown of skin; L97.511 Non-pressure chronic ulcer of other part of right foot limited to breakdown of skin; S80.821D Blister (nonthermal), right lower leg, subsequent encounter; X58.XXXD Exposure to other specified factors, subsequent encounter | CPT/HCPCS: 97597 ==

== ENCOUNTER → 2023-11-10 07:48 | Outpatient (BNVA) | payer OTHER, SELFPAY | PROVIDERS: PCP Emergency Medicine Emergency Medical Services; Visit Provider Thoracic Surgery (Cardiothoracic Vascular Surgery) | DX: I73.9 Peripheral vascular disease, unspecified (principal); L97.411 Non-pressure chronic ulcer of right heel and midfoot limited to breakdown of skin; L97.511 Non-pressure chronic ulcer of other part of right foot limited to breakdown of skin; L97.811 Non-pressure chronic ulcer of other part of right lower leg limited to breakdown of skin | CPT/HCPCS: 97597; A6248 ==

== ENCOUNTER → 2023-11-11 09:15 | Outpatient (BNVA) | payer OTHER, SELFPAY | PROVIDERS: PCP Emergency Medicine Emergency Medical Services; Visit Provider Specialist | DX: G43.711 Chronic migraine without aura, intractable, with status migrainosus (principal) | CPT/HCPCS: 64615; 99212; J0585 ==

== ENCOUNTER → 2023-11-17 07:46 | Outpatient (BNVA) | payer OTHER, SELFPAY | PROVIDERS: PCP Emergency Medicine Emergency Medical Services; Visit Provider Thoracic Surgery (Cardiothoracic Vascular Surgery) | DX: I73.9 Peripheral vascular disease, unspecified (principal); L97.411 Non-pressure chronic ulcer of right heel and midfoot limited to breakdown of skin; L97.511 Non-pressure chronic ulcer of other part of right foot limited to breakdown of skin; L97.811 Non-pressure chronic ulcer of other part of right lower leg limited to breakdown of skin; G62.9 Polyneuropathy, unspecified | CPT/HCPCS: 97597; A6212; A6248 ==

== ENCOUNTER → 2023-11-24 08:03 | Outpatient (BNVA) | payer OTHER, SELFPAY | PROVIDERS: PCP Emergency Medicine Emergency Medical Services; Visit Provider Thoracic Surgery (Cardiothoracic Vascular Surgery) | DX: I73.9 Peripheral vascular disease, unspecified (principal); L97.411 Non-pressure chronic ulcer of right heel and midfoot limited to breakdown of skin; L97.511 Non-pressure chronic ulcer of other part of right foot limited to breakdown of skin; L97.811 Non-pressure chronic ulcer of other part of right lower leg limited to breakdown of skin; G62.9 Polyneuropathy, unspecified | CPT/HCPCS: 97597 ==

== ENCOUNTER → 2023-12-01 08:00 | Outpatient (BNVA) | payer OTHER, SELFPAY | PROVIDERS: PCP Emergency Medicine Emergency Medical Services; Visit Provider Thoracic Surgery (Cardiothoracic Vascular Surgery) | DX: I73.9 Peripheral vascular disease, unspecified (principal); L97.411 Non-pressure chronic ulcer of right heel and midfoot limited to breakdown of skin; L97.511 Non-pressure chronic ulcer of other part of right foot limited to breakdown of skin; L97.811 Non-pressure chronic ulcer of other part of right lower leg limited to breakdown of skin; G62.9 Polyneuropathy, unspecified | CPT/HCPCS: 97597 ==

== ENCOUNTER → 2023-12-08 08:33 | Outpatient (BNVA) | payer OTHER, SELFPAY | PROVIDERS: PCP Emergency Medicine Emergency Medical Services; Visit Provider Thoracic Surgery (Cardiothoracic Vascular Surgery) | DX: I73.9 Peripheral vascular disease, unspecified (principal); L97.411 Non-pressure chronic ulcer of right heel and midfoot limited to breakdown of skin; L97.511 Non-pressure chronic ulcer of other part of right foot limited to breakdown of skin; Z09 Encounter for follow-up examination after completed treatment for conditions other than malignant neoplasm | CPT/HCPCS: 97597; A6248 ==

== ENCOUNTER 2023-12-14 09:56 | Emergency (ER) | payer OTHER, MEDICARE, SELFPAY ==
[2023-12-14] VITALS (16 sets, daily range): BP systolic 100–145; BP diastolic 65–75; PULSE 70–89; RESP 13–18; TEMP 36.3; O2SAT 91–100; BMI 28.8
--- NOTE | 2023-12-14 10:16 | ED_ITS ---
HPI - Wound/Laceration 2 General: Chief Complaint: Wound/Laceration Stated Complaint: surgery 11/02, right leg bleeding all night Time Seen by Provider: 12/14/23 10:16 Source: patient Mode of arrival: ambulatory History of Present Illness: 78-year-old [facility] of swelling and drainage from right groin incision. Patient had vascular procedure done approximately 5 weeks ago at [facility] had a bulge develop there over the last week he is now has redness erythema and has active drainage from the inferior aspect of the wound last night they had some miguel red blood this morning on arrival here there is scant amounts of purulent material. He denies fever. Patient is extremely hard of hearing. He is on apixaban for atrial fibrillation. Denies any chest pain. Subjectively may have had a low-grade fever but has not monitored. Onset (ago): day(s) Associated symptoms: Reports fever(s); Denies chills, foreign body sensation, inability to move, nausea, numbness, pain, syncope or vomiting Review of Systems 2 Const: Reports: fever(s), fatigue and malaise; Denies: chills Card: Denies: chest pain or syncope Resp: Denies: dyspnea GI: Denies: abdominal pain, nausea or vomiting : Denies: flank pain, dysuria, urinary frequency or urinary urgency Musc: Reports: extremity swelling (Right groin); Denies: neck pain or back pain Skin/Breast: Denies: rash PFSH ED 2 PFSH: Medical History Atrial fibrillation History of nonmelanoma skin cancer History of ST elevation myocardial infarction (STEMI) Ascending aortic aneurysm History of colon polyps H/O ventricular tachycardia Imbalance Deviated nasal septum, congenital Nasal lesion Sensorineural hearing loss of left ear Deafness in right ear Hyperlipidemia Surgical History History of colonoscopy with polypectomy (~12/2019) History of cervical spinal surgery S/P foot surgery S/P cataract surgery S/P PTCA (percutaneous transluminal coronary angioplasty) History of colonoscopy with polypectomy (~2017) H/O foot surgery H/O heart artery stent H/O neck surgery H/O colonoscopy couple of years ago H/O esophagogastroduodenoscopy years ago Family History Father Cancer Mother Cancer Other Heart disease Stroke Denies family history of Anesthesia complication Bleeding disorder Social History Smoking and tobacco/nicotine status: former use of tobacco/nicotine (29 years ago) Alcohol intake: current Alcohol intake frequency: holidays/special occasions only Alcohol type: beer Substance/Drug Use: never Lives independently: Yes Marital status: Single Current occupational status: retired Physical Exam 2 Const: GENERAL APPEARANCE: cooperative and comfortable O RIENTATION/CONSCIOUSNESS: Yes awake, Yes oriented to person, Yes oriented to place and Yes oriented to time HENMT: COMMON NORMALS: normocephalic, atraumatic and hearing grossly normal bilaterally HEAD & SCALP: normocephalic and atraumatic Resp: COMMON NORMALS: normal respiratory effort, No retractions, No use of accessory muscles and clear to auscultation bilaterally AUSCULTATION: clear to auscultation bilaterally Cardio: COMMON NORMALS: regular rate, regular rhythm and No murmurs present (Cardio) RATE: regular rate RHYTHM: regular rhythm GI: COMMON NORMALS: Soft to palpation and No hepatosplenomegaly present A USCULTATION: Yes normoactive bowel sounds PALPATION: Yes Soft to palpation, No Tenderness to palpation present (GI), No Guarding due to palpation present (GI) and Yes No hepatosplenomegaly present Extremity: OTHER: Right inguinal region inflamed there is a healing wound of this small open area that is dehisced at the inferior aspect it is in line with the hip joint itself extending from the inguinal crease inferiorly. The skin localizes erythematous warm to the touch swollen inflamed there is a fluctuant swelling with tense skin in the region of the incision. Able to express purulent drainage from the incision. Neuro: SENSORIUM/ORIENTATION: Yes oriented to person, Yes oriented to place and Yes oriented to time Skin: COMMON NORMALS: no rashes or lesions noted GENERAL SKIN EXAM: no rashes or lesions noted Course 2 Vital Signs: Vital signs: Vital Signs Temperature 97.4 F L 12/14/23 10:06 Pulse Rate 74 12/14/23 17:00 Respiratory Rate 16 12/14/23 17:00 Blood Pressure 121/66 12/14/23 17:00 Pulse Oximetry 91 12/14/23 17:00 Oxygen Delivery Me thod Room Air 12/14/23 10:06 MDM - Wound/Laceration Medical Decision Making Abscess at his previous surgical site 7 x 3 x 2. Had a little difficulty getting a hold of his surgeon who was tied up in a case [place] when we were able to Dr. Ballesteros he was happy to take the patient on. He recommends that we transfer ER to ER and he will see the patient there I discussed with ER physician at [facility] they will accept the patient in ER to ER transfer. Medical Records I reviewed the patient's medical records. Lab Data I reviewed the patient's lab results. 12/14/23 11:30 12/14/23 11:30 Radiology Impressions Soft Tissue Ultrasound 12/14/23 10:23 IMPRESSION: 1. Very limited ultrasound evaluation was performed of the RIGHT groin. 2. There is soft tissue edema and a complex fluid collection which was incompletely evaluated. No color Doppler was performed at this collection and the entire extent of the collection was not imaged. This may be a phlegmon or edema. Abscess not excluded. Lower Extremity CTA 12/14/23 11:32 IMPRESSION: 1. Recent postoperative changes RIGHT groin with surgical clips about the common femoral artery which is patent. No evidence of pseudoaneurysm. 2. Small fluid collection suspicious for abscess at the lower aspect of the surgical tract extending from the skin to the anterior thigh musculature measuring 3.3 x 2.8 x 7.2 cm AP by transverse by craniocaudal. 3. Diffuse subcutaneous edema and induration in the proximal thigh soft tissues. 4. 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 Diminutive calcified two-vessel runoff to the ankle also appears unchanged. Notified Tai Amanda DO at 12/14/2023 1:54 PM. Laboratory Results WBC 15.52 10^3/uL (3.29-11.43) H 12/14/23 11:30 RBC 3.24 10^6/uL (3.85-5.65) L 12/14/23 11:30 Hgb 11.10 g/dL (11.27-16.99) L 12/14/23 11:30 Hct 33.4 % (37-53) L 12/14/23 11:30 MCV 103.1 fl (82-101) H 12/14/23 11:30 MCH 34.3 pg (27-33) H 12/14/23 11: MCHC 33.2 g/dL (30-55) 12/14/23 11:30 RDW 14.6 % (12.1-15.1) 12/14/23 11:30 Plt Count 265 10^3/cmm (157-399) 12/14/23 11:30 MPV 9.5 fL (7.4-10.4) 12/14/23 11:30 Neut % (Auto) 92.1 % 12/14/23 11:30 Lymph % (Auto) 3.2 % 12/14/23 11:30 [place] % (Auto) 3.3 % 12/14/23 11:30 Eos % (Auto) 0.1 % 12/14/23 11:30 Baso % (Auto) 0.1 % 12/14/23 11:30 Neut # (Auto) 14.31 10^3/uL (1.8-7.7) H 12/14/23 11:30 Lymph # (Auto) 0.5 10^3/uL (0.8-4.8) L 12/14/23 11:30 [place] # (Auto) 0.5 10^3/uL (0.2-0.9) 12/14/23 11:30 Eos # (Auto) 0.0 10^3/uL (0.0-0.8) 12/14/23 11:30 Baso # (Auto) 0.0 10^3/uL (0.0-0.1) 12/14/23 11:30 Nucleated RBC % (auto) 0 % 12/14/23 11:30 Nucleated RBCs # 0.0 /100WBC 12/14/23 11:30 Sodium 134 mmol/L (136-145) L 12/14/23 11:30 Potassium 3.8 mmol/L (3.5-5.1) 12/14/23 11:30 Chloride 98 mmol/L (98-107) 12/14/23 11: Carbon Dioxide 24 mmol/L (22-29) 12/14/23 11:30 Anion Gap 15.8 (5-19) 12/14/23 11:30 BUN 31 mg/dL (8-23) H 12/14/23 11:30 Creatinine 1.2 mg/dL (0.7-1.2) 12/14/23 11:30 GFR Calculation Not Reportable 12/14/23 11:30 Glucose 124 mg/dL (65-115) H 12/14/23 11:30 Calculated Osmolality 286 mOsm/kg (285-295) 12/14/23 11:30 Lactic Acid 1.6 mmol/L (0.5-2.2) 12/14/23 11:30 Calcium 8.6 mg/dL (8.5-10.5) 12/14/23 11:30 Magnesium 2.0 mg/dL (1.7-2.3) 12/14/23 11:30 Total Bilirubin 0.7 mg/dL (0.15-1.2) 12/14/23 11:30 AST 15 U/L (0-40) 12/14/23 11:30 ALT 11 U/L (0-41) 12/14/23 11:30 Alkaline Phosphatase 201 U/L (40-130) H 12/14/23 11:30 Total Protein 6.5 g/dL (6.6-8.7) L 12/14/23 11:30 Albumin 3.1 g/dL (3.5-5.2) L 12/14/23 11:30 Globulin 3.4 g/dL (1.3-4.6) 12/14/23 11:30 Urine Color Yellow (Yellow) 12/14/23 13:47 Urine Appearance Slightly cloudy (CLEAR) 12/14/23 13:47 Urine pH 5 (5-7) 12/14/23 13:47 Ur Specific [place] 1.010 (1.005-1.030) 12/14/23 13:47 Urine Protein Trace (Negative) 12/14/23 13:47 Urine Glucose (UA) Norm (Normal) 12/14/23 13:47 Urine Ketones Negative (Negative) 12/14/23 13:47 Urine Blood Neg (Negative) 12/14/23 13:47 Urine Nitrate Positive (Negative) H 12/14/23 13:47 Urine Bilirubin Neg (Negative) 12/14/23 13:47 Urine Urobilinogen 1 mg/dL (Negative) H 12/14/23 13:47 Ur Leukocyte Esterase Negative (Negative) 12/14/23 13:47 Urine RBC 0-4 /hpf (0-2) H 12/14/23 13:47 Urine WBC 5-10 /hpf (0-5) H 12/14/23 13:47 Ur Squamous Epith Cells 0-4 /hpf (0-5) H 12/14/23 13:47 Amorphous Sediment Not Reportable 12/14/23 13:47 Urine Bacteria 1+ /hpf (NONE) H 12/14/23 13:47 All radiology interpretation(s) finalized by discharge Discharge Plan Discharge Condition: Stable Prescriptions: No Action acetaminophen [Tylenol Extra Strength] 500 mg tablet 1,000 mg PO QID PRN (Reason: fever or pain) aspirin [Adult Low Dose Aspirin] 81 mg tablet,delayed release (DR/EC) 81 mg PO DAILY Hold Instructions: Resume on 01/06/20. furosemide 40 mg tablet 40 mg PO DAILY gabapentin 300 mg capsule 300 mg PO QPM nitroglycerin [Nitrostat] 0.4 mg tablet, sublingual 0.4 mg SUBLINGUAL Q5M PRN (Reason: Chest Pain) tamsulosin 0.4 mg capsule 0.4 mg PO QPM galantamine 4 mg tablet 4 mg PO BID Qty: 180 3RF Rx Instructions: administer with AM and PM meals hydrocodone-acetaminophen 5-325 mg tablet 1 tab PO BID PRN (Reason: pain) 10 Days Qty: 20 0RF Pacerone 200 mg tablet 200 mg PO DAILY Qty: 90 3RF apixaban 5 mg tablet 5 mg PO BID Qty: 180 2RF Hold Instructions: Resume on 08/27/23. pantoprazole 20 mg Tablet,Delayed Release (Dr/Ec) 20 mg PO DAILY lisinopril 5 mg tablet 5 mg PO DAILY Coding Level of Care Code ED Gizzard Puller for Oscar Robles
--- NOTE | 2023-12-14 10:19 | PC.PHAR ---
PT IS [facility] FOR MED LIST 12/14/23 10:18AM
--- NOTE | 2023-12-14 10:23 | US_ITS ---
WS: [id number] ULTRASOUND SOFT TISSUES RIGHT groin HISTORY: fluctuant mass in the R groin COMPARISON: None available. TECHNIQUE: 2-D and color Doppler imaging is submitted. Extremely limited evaluation ultrasound RIGHT groin. There is edema in the RIGHT groin. There is a small complex fluid collection approximately 1.5 cm elvis p to the skin surface. No color Doppler was submitted. This is not a well-formed collection and the e xtent cannot be determined on the imaging submitted. US/US soft tissue/extremity [id number] IMPRESSION: 1. Very limited ultrasound evaluation was performed of the RIGHT groin. 2. There is soft tissue edema and a complex fluid collection which was incompl etely evaluated. No color Doppler was performed at this collection and the enti re extent of the collection was not imaged. This may be a phlegmon or edema. Ab scess not excluded.
--- NOTE | 2023-12-14 11:26 | PC.PHAR ---
WILL ASK PT IF AM MEDS WERE TAKEN WHEN LAB IS FINISHED
--- NOTE | 2023-12-14 11:32 | CT_ITS ---
WS: [id number] INDICATION: RIGHT groin wound with recent surgery TECHNIQUE: RIGHT lower extremity runoff with coronal and sagittal reformatted images. FINDINGS: Surgical clips RIGHT groin. Aortic calcification. Dense common iliac calcification. RIGHT c ommon iliac artery is patent. External and internal iliac artery are patent. Surgical clips about the RIGHT groin and RIGHT common femoral artery. Postoperative changes RIGHT common femoral artery which is patent. Small fluid collection along the inferior surgical tract measuring 3.3 x 2.8 x 7.2 cm. This extends f rom the skin into the anterior thigh musculature at the level of the superficial femoral artery in th e upper thigh. This most likely presents abscess given physical exam. Deep femoral artery is patent. Multifocal segmental stenosis in the superficial femoral artery and po pliteal artery similar to previous. Popliteal artery is occluded above the knee unchanged from previo us. This reconstitutes distally with tiny partially calcified two-vessel runoff to the ankle. Dense c alcification in the tibioperoneal trunk. Diffuse anasarca with edema in the RIGHT thigh and visualized RIGHT lower extremity. Enlarged prostat e. Fat-containing RIGHT inguinal hernia. [place] [id number] IMPRESSION: 1. Recent postoperative changes RIGHT groin with surgical clips about the com mon femoral artery which is patent. No evidence of pseudoaneurysm. 2. Small fluid collection suspicious for abscess at the lower aspect of the israel rgical tract extending from the skin to the anterior thigh musculature measurin g 3.3 x 2.8 x 7.2 cm AP by transverse by craniocaudal. 3. Diffuse subcutaneous edema and induration in the proximal thigh soft tissue s. 4. 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 Diminutive calcified two-vessel runoff to the ankle also appears unchanged. Notified Tai Amanda DO at 12/14/2023 1:54 PM.
[2023-12-14 11:53] LABS: Basophils % 0.1 %; Eosinophils % 0.1 %; Hematocrit 33.4 % (37-53); Lymphocytes # 0.5 10^3/uL (0.8-4.8); Lymphocytes % 3.2 %; Mean Corpuscular HGB Conc 33.2 g/dL (30-55); Mean Corpuscular Hemoglobin 34.3 pg (27-33); Mean Corpuscular Volume 103.1 fl (82-101); Mean Platelet Volume 9.5 fL (7.4-10.4); Monocytes # 0.5 10^3/uL (0.2-0.9); Monocytes % 3.3 %; Neutrophils # 14.31 10^3/uL (1.8-7.7); Neutrophils % 92.1 %; Nucleated Red Blood Cells % 0 %; Platelet Count 265 10^3/cmm (157-399); Red Blood Count 3.24 10^6/uL (3.85-5.65); Red Cell Distribution Width 14.6 % (12.1-15.1); White Blood Count 15.52 10^3/uL (3.29-11.43)
[2023-12-14 12:17] LABS: Alanine Aminotransferase 11 U/L (0-41); Albumin Level 3.1 g/dL (3.5-5.2); Alkaline Phosphatase 201 U/L (40-130); Anion Gap 15.8 (5-19); Aspartate Amino Transferase 15 U/L (0-40); Blood Urea Nitrogen 31 mg/dL (8-23); Calcium 8.6 mg/dL (8.5-10.5); Carbon Dioxide 24 mmol/L (22-29); Chloride 98 mmol/L (98-107); Creatinine Clr Calc Pharmacy 54.0281; Globulin 3.4 g/dL (1.3-4.6); Glucose 124 mg/dL (65-115); Osmolality Calculated 286 mOsm/kg (285-295); Potassium 3.8 mmol/L (3.5-5.1); Sodium 134 mmol/L (136-145); Total Bilirubin 0.7 mg/dL (0.15-1.2); Total Protein 6.5 g/dL (6.6-8.7)
[2023-12-14 12:18] LABS: Lactic Sepsis W/Reflex 1.6 mmol/L (0.5-2.2)
[2023-12-14] MEDS: iohexol 350 mg/mL 500 mL Btl (per mL) IV (12:41)
[2023-12-14] MEDS: vancomycin 1,000 MG in sodium chloride 0.9% 250 ML 250 MG IV (12:52)
[2023-12-14] MEDS: levofloxacin-dextrose 5 % 750 MG/150 ML PREMIX 100 MG IV (12:54)
[2023-12-14 14:28] LABS: Bilirubin Urine Neg (Negative); Blood Urine Neg (Negative); Glucose Urine UA Norm (Normal); Ketones Urine Negative (Negative); Leukocyte Esterase Urine Negative (Negative); Nitrate Urine Positive (Negative); Protein Urine Trace (Negative); Urine Appearance Slightly Cloudy (CLEAR); Urine Color Yellow (Yellow); Urobilinogen Urine 1 mg/dL (Negative); pH Urine 5 (5-7)
[2023-12-14 14:29] LABS: Add Urine Microscopic? YES; Bacteria Urine 1+ /hpf; RBC Urine 0-4 /hpf (0-2); Squamous Epithelial Cell Urine 0-4 /hpf (0-5)
[2023-12-14] MEDS: morphine 4 mg/mL SDV 1 mL 2 MG IVP (18:30)
== END 2023-12-14 20:46 | disposition short-term general hospital (02) ==
PROVIDERS: Emergency Provider Family Medicine
DX: T81.41XA Infection following a procedure, superficial incisional surgical site, initial encounter (principal); Z79.82 Long term (current) use of aspirin; Z87.891 Personal history of nicotine dependence; I25.2 Old myocardial infarction; E78.5 Hyperlipidemia, unspecified
CPT/HCPCS: 36415; 73706; 76882; 80053; 81001; 83605; 83735; 85025; 87040; 87077; 87150; 87186; 87205; 96365; 96366; 96367; 96375; 99285; J1956; J2270; J3370; J7050; Q9967

== ENCOUNTER → 2024-01-26 08:55 | Outpatient (BNVA) | payer OTHER, SELFPAY | PROVIDERS: Visit Provider Specialist | DX: M19.011 Primary osteoarthritis, right shoulder (principal); M25.511 Pain in right shoulder; M25.512 Pain in left shoulder | CPT/HCPCS: 73030 ==

== ENCOUNTER → 2024-02-24 09:33 | Outpatient (BNVA) | payer OTHER, SELFPAY | PROVIDERS: Visit Provider Specialist | DX: G43.711 Chronic migraine without aura, intractable, with status migrainosus (principal); G62.9 Polyneuropathy, unspecified; M48.02 Spinal stenosis, cervical region | CPT/HCPCS: 64615; 99213; J0585 ==

== ENCOUNTER → 2024-02-29 13:19 | Outpatient (BNVA) | payer OTHER, SELFPAY | PROVIDERS: Visit Provider Nurse Practitioner Family | DX: L57.0 Actinic keratosis (principal); L98.8 Other specified disorders of the skin and subcutaneous tissue; L81.4 Other melanin hyperpigmentation; L57.8 Other skin changes due to chronic exposure to nonionizing radiation; L73.8 Other specified follicular disorders; B07.8 Other viral warts | CPT/HCPCS: 17000; 99213 ==

== ENCOUNTER → 2024-05-15 09:30 | Outpatient (BNVA) | payer OTHER, SELFPAY | PROVIDERS: Visit Provider Nurse Practitioner Family | DX: I25.10 Atherosclerotic heart disease of native coronary artery without angina pectoris (principal); I10 Essential (primary) hypertension; I48.0 Paroxysmal atrial fibrillation; I73.9 Peripheral vascular disease, unspecified; Z87.891 Personal history of nicotine dependence | CPT/HCPCS: 99214 ==

== ENCOUNTER → 2024-05-22 09:56 | Outpatient (BNVA) | payer OTHER, SELFPAY | PROVIDERS: Visit Provider Specialist | DX: M12.812 Other specific arthropathies, not elsewhere classified, left shoulder (principal) | CPT/HCPCS: 99213 ==

== ENCOUNTER 2024-05-24 11:43 | Outpatient (CLI) | payer OTHER, SELFPAY ==
--- NOTE | 2024-05-24 12:15 | MR_ITS ---
WS: [id number] MRI LEFT SHOULDER HISTORY: LEFT shoulder pain. COMPARISON: 01/26/2024 radiograph, prior MRI 07/29/2023 TECHNIQUE: Multiplanar sequences of the shoulder joint are submitted. Severe AC joint arthritis. Joint space is narrowed with hypertrophic bone and soft tissue edema. Oste ophytes encroach upon the myotendinous supraspinatus. Moderate subacromial impingement. Biceps tendon remains at the bicipital groove. Marked amount of increased fluid in the biceps tendon sheath. No os acromion. Moderately high riding humeral head. Complete loss of normal glenohumeral joint space. Large circumfe rential osteophytes surrounding the humeral head. Osteophytic ridging around the glenoid. Complete lo ss of cartilage. Subchondral cystic changes along the glenoid and humeral head. There is marked thickening and intermediate signal in the distal supraspinatus tendon. Signal is incr easing since 07/29/2023 and the tendon is thin but does not appear to be retracted or completely torn. Thickening of the distal infraspinatus tendon. Marked thickening of the distal subscapularis tendon which is being displaced by fluid surrounding the humeral head. Moderate atrophy of the supraspinatus muscle. Extensive marrow edema with volume loss in the subscapularis muscle. There is fluid near the spinoglenoid notch. Complete loss of the normal labrum. Marked thickening and increased T2 signal in the coracohumeral li gament. MR/MR shoulder LT wo con* [id number] IMPRESSION: 1. Severe AC joint arthritis with loss of joint space and hypertrophic bone en croaching upon the muscles and ligaments. 2. Moderate subacromial impingement. 3. Fluid in the biceps tendon sheath with extensive tenosynovitis. 4. Severe glenohumeral joint arthropathy with complete loss of the joint space , cartilage and labrum. Humeral head is moderately high riding. 5. Marked tendinopathy in the distal supraspinatus, infraspinatus and subscapu dania tendons. There is no full-thickness tear identified. Progression of tendi nopathy in the supraspinatus and subscapularis tendons. 6. Additional atrophy of the supraspinatus and subscapularis muscles. Edema in the subscapularis muscle. There is fluid in the spinoglenoid notch. 7. Severe osteophytic ridging around the humeral head and glenoid.
== END 2024-05-24 11:44 | disposition home or self-care (01) ==
LOC: RAD 11:44
PROVIDERS: PCP Family Medicine; Visit Provider Specialist
DX: M19.012 Primary osteoarthritis, left shoulder (principal); M75.42 Impingement syndrome of left shoulder; M75.92 Shoulder lesion, unspecified, left shoulder; M25.712 Osteophyte, left shoulder
CPT/HCPCS: 73221

== ENCOUNTER → 2024-05-26 14:02 | Outpatient (BNVA) | payer OTHER, SELFPAY | PROVIDERS: PCP Family Medicine; Visit Provider Specialist | DX: G43.711 Chronic migraine without aura, intractable, with status migrainosus (principal); G62.9 Polyneuropathy, unspecified; M48.02 Spinal stenosis, cervical region; R03.0 Elevated blood-pressure reading, without diagnosis of hypertension | CPT/HCPCS: 64615; J0585 ==

== ENCOUNTER 2024-06-19 10:53 | Emergency (ER) | payer OTHER, MEDICARE, SELFPAY ==
--- NOTE | 2024-06-19 11:06 | ECG_ITS ---
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 Measurements Intervals [place] Rate: 65 P: 34 NC: 186 QRS: -75 QRSD: 134 T: 23 QT: 440 QTc: 459 Interpretive Statements SINUS RHYTHM WITH supraventricular ectopic INTRAVENTRICULAR CONDUCTION DELAY [130+ ms QRS DURATION] POSSIBLE ANTERIOR MYOCARDIAL INFARCTION , OF INDETERMINATE AGE [30 ms Q WAVE IN V3/V4, OR R < 0.2 mV IN V4] Compared to ECG 12/17/2022 15:13:08 No significant changes Electronically Signed On 06-19-2024 19:26:33 BAILIFF by Yoko Michael M.D. [id number]
--- NOTE | 2024-06-19 11:06 | XRR_ITS ---
PROCEDURE INFORMATION: Exam: XR Chest Exam date and time: 06/19/2024 11:10 AM Age: 78 years old Clinical indication: Pain; Angina pectoris; Prior surgery; Surgery date: 6+ months; Surgery type: Cardiac stents; Additional info: Cp TECHNIQUE: Imaging protocol: Radiologic exam of the chest. Views: 1 view. COMPARISON: CR XR chest 1V portable [id number] 09/04/2022 12:11 PM FINDINGS: Lungs: Unremarkable. No consolidation. Pleural spaces: Unremarkable. No pleural effusion. No pneumothorax. Heart/Mediastinum: The heart is enlarged. There is calcified plaque involving the aorta. Bones/joints: There are postoperative changes involving the cervical spine. XR/XR chest 1V portable [id number] IMPRESSION: 1. Cardiomegaly.
[2024-06-19 11:40] VITALS: BP 166/91; PULSE 66; RESP 16; TEMP 36.5; O2SAT 97; BMI 29.0
[2024-06-19 11:45] LABS: Basophils % 0.5 %; Eosinophils # 0.2 10^3/uL (0.0-0.8); Eosinophils % 2.6 %; Lymphocytes # 1.6 10^3/uL (0.8-4.8); Mean Corpuscular HGB Conc 33.2 g/dL (30-55); Mean Corpuscular Hemoglobin 32.2 pg (27-33); Mean Corpuscular Volume 97.2 fl (82-101); Monocytes # 0.5 10^3/uL (0.2-0.9); Monocytes % 7.9 %; Neutrophils # 3.51 10^3/uL (1.8-7.7); Neutrophils % 60.7 %; Nucleated Red Blood Cells % 0 %; Platelet Count 218 10^3/cmm (157-399); Red Blood Count 3.91 10^6/uL (3.85-5.65); Red Cell Distribution Width 13.2 % (12.1-15.1); White Blood Count 5.79 10^3/uL (3.29-11.43)
[2024-06-19 12:08] LABS: Alanine Aminotransferase 18 U/L (0-41); Albumin Level 4.3 g/dL (3.5-5.2); Alkaline Phosphatase 191 U/L (40-130); Anion Gap 16.9 (5-19); Aspartate Amino Transferase 17 U/L (0-40); Blood Urea Nitrogen 23 mg/dL (8-23); Calcium 9.1 mg/dL (8.5-10.5); Carbon Dioxide 24 mmol/L (22-29); Chloride 101 mmol/L (98-107); Globulin 2.7 g/dL (1.3-4.6); Glucose 111 mg/dL (65-115); Lipase 33 U/L (13-60); Osmolality Calculated 290 mOsm/kg (285-295); Potassium 3.9 mmol/L (3.5-5.1); Sodium 138 mmol/L (136-145); Total Bilirubin 0.5 mg/dL (0.15-1.2); Troponin(5th) Baseline 17 ng/L (0-15)
--- NOTE | 2024-06-19 12:53 | ED_ITS ---
HPI - Chest Pain 2 General: Chief Complaint: Chest Pain Stated Complaint: tight chest; abnormal EKG sent from [facility] Time Seen by Provider: 06/19/24 12:52 History of Present Illness: 78-year-old male presents to the emergen cy room with complaints of chest tightness. He states this began today. He was at the [facility] was going to get a knee injection and they did an EKG, as advised chest tightness he was referred to the emergency room. Patient has a known history of coronary disease and atrial fibrillation. He still has some mild chest tightness now. He states he generally has lots of aches and pains this is slightly different. Nothing exacerbates or relieves it is noted he denies any fever sweats chills or productive cough. Associated symptoms: Deny abdominal pain, dyspnea or fever(s) Related Data Home Medications Medication Instructions Recorded Confirmed aspirin 81 mg tablet,delayed 81 mg PO DAILY 07/13/19 06/19/24 release (Adult Low Dose Aspirin) nitroglycerin 0.4 mg sublingual 0.4 mg sublingual Q5M PRN Chest 07/13/19 06/19/24 tablet (Nitrostat) Pain tamsulosin 0.4 mg capsule 0.4 mg PO QPM 07/13/19 06/19/24 acetaminophen 500 mg tablet 1,000 mg PO QID PRN fever or pain 03/04/20 06/19/24 (Tylenol Extra Strength) atorvastatin 40 mg tablet 40 mg PO DAILY 06/19/24 06/19/24 meclizine 25 mg chewable tablet 25 mg PO DAILY PRN nauea 06/19/24 06/19/24 Previous Rx's Medication Instructions Recorded meloxicam 15 mg tablet 15 mg PO DAILY #30 tabs 01/26/24 lisinopril 2.5 mg tablet 5 mg (2 x 2.5 mg) PO DAILY #90 tabs 05/15/24 Allergies Allergy/AdvReac Type Severity Reaction Status Date / Time codeine Allergy Unknown Unconscious Verified 05/26/24 14:16 /syncope hydrochlorothiazide AdvReac hypotension Verified 05/26/24 14:16 Review of Systems 2 Const: Denies: fever(s) or chills Card: Reports: chest pain (Tightness) Resp: Denies: dyspnea GI: Denies: abdominal pain : Denies: dysuria, urinary frequency or urinary urgency Musc: Denies: neck pain or back pain Skin/Breast: Denies: rash PFSH ED 2 PFSH: Medical History Atrial fibrillation History of nonmelanoma skin cancer History of ST elevation myocardial infarction (STEMI) Ascending aortic aneurysm History of colon polyps H/O ventricular tachycardia Imbalance Deviated nasal septum, congenital Nasal lesion Sensorineural hearing loss of left ear Deafness in right ear Hyperlipidemia Surgical History History of colonoscopy with polypectomy (~12/2019) History of cervical spinal surgery S/P foot surgery S/P cataract surgery S/P PTCA (percutaneous transluminal coronary angioplasty) History of colonoscopy with polypectomy (~2017) H/O foot surgery H/O heart artery stent H/O neck surgery H/O colonoscopy couple of years ago H/O esophagogastroduodenoscopy years ago Family History Father Cancer Mother Cancer Other Heart disease Stroke Denies family history of Anesthesia complication Bleeding disorder Social History Smoking and tobacco/nicotine status: former use of tobacco/nicotine (29 years ago) Alcohol intake: current Alcohol intake frequency: holidays/special occasions only Alcohol type: beer Substance/Drug Use: never Lives independently: Yes Marital status: Single Current occupational status: retired Physical Exam 2 Const: GENERAL APPEARANCE: cooperative ORIENTATION/CONSCIOUSNESS: Yes awake, Yes oriented to person, Yes oriented to place and Yes oriented to time HENMT: COMMON NORMALS: normocephalic, atraumatic and hearing grossly normal bilaterally HEAD & SCALP: normocephalic and atraumatic Resp: COMMON NORMALS: normal respiratory effort, No retractions, No use of accessory muscles and clear to auscultation bilaterally AUSCULTATION: clear to auscultation bilaterally Cardio: COMMON NORMALS: regular rate, regular rhythm and No murmurs present (Cardio) RATE: regular rate RHYTHM: regular rhythm GI: COMMON NORMALS: Soft to palpation and No hepatosplenomegaly present A USCULTATION: Yes normoactive bowel sounds PALPATION: Yes Soft to palpation, No Tenderness to palpation present (GI), No Guarding due to palpation present (GI) and Yes No hepatosplenomegaly present Extremity: COMMON NORMALS: normal to inspection, capillary refill normal, no clubbing, cyanosis or edema, no calf tenderness and no pedal edema Neuro: SENSORIUM/ORIENTATION: Yes oriented to person, Yes oriented to place and Yes oriented to time Skin: COMMON NORMALS: no rashes or lesions noted GENERAL SKIN EXAM: no rashes or lesions noted Course 2 Vital Signs: Vital signs: Vital Signs Temperature 97.7 F 06/19/24 11:40 Pulse Rate 70 06/19/24 15:24 Respiratory Rate 16 06/19/24 14:46 Blood Pressure 181/94 06/19/24 15:24 Pulse Oximetry 98 06/19/24 15:24 Oxygen Delivery Me thod Room Air 06/19/24 14:44 MDM - Chest Pain Medical Decision Making Patient states his pressure is about the same as it has been over the last 2 months no acute change in troponins or and has EKG. He would prefer to go home. At this point do not think he is having any acute coronary syndrome with the discomfort that he has is part of his chronic musculoskeletal issues. Will discharge patient home continue current medications follow-up with his primary care. [facility] if felt appropriate. Medical Records I reviewed the patient's medical records. Lab Data I reviewed the patient's lab results. 06/19/24 11:37 06/19/24 11:37 Radiology Impressions Chest X-Ray 06/19/24 11:06 IMPRESSION: 1. Cardiomegaly. Laboratory Results WBC 5.79 10^3/uL (3.29-11.43) 06/19/24 11:37 RBC 3.91 10^6/uL (3.85-5.65) 06/19/24 11:37 Hgb 12.60 g/dL (11.27-16.99) 06/19/24 11:37 Hct 38.0 % (37-53) 06/19/24 11:37 MCV 97.2 fl (82-101) 06/19/24 11:37 MCH 32.2 pg (27-33) 06/19/24 11:37 MCHC 33.2 g/dL (30-55) 06/19/24 11:37 RDW 13.2 % (12.1-15.1) 06/19/24 11:37 Plt Count 218 10^3/cmm (157-399) 06/19/24 11:37 MPV 10.0 fL (7.4-10.4) 06/19/24 11:37 Neut % (Auto) 60.7 % 06/19/24 11:37 Lymph % (Auto) 28.0 % 06/19/24 11:37 Holmes % (Auto) 7.9 % 06/19/24 11:37 Eos % (Auto) 2.6 % 06/19/24 11:37 Baso % (Auto) 0.5 % 06/19/24 11:37 Neut # (Auto) 3.51 10^3/uL (1.8-7.7) 06/19/24 11:37 Lymph # (Auto) 1.6 10^3/uL (0.8-4.8) 06/19/24 11:37 Holmes # (Auto) 0.5 10^3/uL (0.2-0.9) 06/19/24 11:37 Eos # (Auto) 0.2 10^3/uL (0.0-0.8) 06/19/24 11:37 Baso # (Auto) 0.0 10^3/uL (0.0-0.1) 06/19/24 11:37 Nucleated RBC % (auto) 0 % 06/19/24 11:37 Nucleated RBCs # 0.0 /100WBC 06/19/24 11:37 PT 14.60 SECONDS (12.1-14.9) 06/19/24 11:37 INR 1.10 (0.8-1.2) 06/19/24 11:37 Sodium 138 mmol/L (136-145) 06/19/24 11:37 Potassium 3.9 mmol/L (3.5-5.1) 06/19/24 11:37 Chloride 101 mmol/L (98-107) 06/19/24 11:37 Carbon Dioxide 24 mmol/L (22-29) 06/19/24 11:37 Anion Gap 16.9 (5-19) 06/19/24 11:37 BUN 23 mg/dL (8-23) 06/19/24 11:37 Creatinine 1.2 mg/dL (0.7-1.2) 06/19/24 11:37 GFR Calculation Not Reportable 06/19/24 11:37 Glucose 111 mg/dL (65-115) 06/19/24 11:37 Calculated Osmolality 290 mOsm/kg (285-295) 06/19/24 11:37 Calcium 9.1 mg/dL (8.5-10.5) 06/19/24 11:37 Total Bilirubin 0.5 mg/dL (0.15-1.2) 06/19/24 11:37 AST 17 U/L (0-40) 06/19/24 11:37 ALT 18 U/L (0-41) 06/19/24 11:37 Alkaline Phosphatase 191 U/L (40-130) H 06/19/24 11:37 Troponin T Baseline 17 ng/L (0-15) H 06/19/24 11:37 Troponin T 120 Minute 17.33 ng/L (0-15) H 06/19/24 13:53 Delta Troponin T 0.33 ABS# (0-10) 06/19/24 13:53 Total Protein 7.0 g/dL (6.6-8.7) 06/19/24 11:37 Albumin 4.3 g/dL (3.5-5.2) 06/19/24 11:37 Globulin 2.7 g/dL (1.3-4.6) 06/19/24 11:37 Lipase 33 U/L (13-60) 06/19/24 11:37 All radiology interpretation(s) finalized by discharge Discharge Plan Discharge Patient Disposition: Home Clinical Impression: Atypical chest pain, Chronic pain Condition: Stable Prescriptions: No Action acetaminophen [Tylenol Extra Strength] 500 mg tablet 1,000 mg PO QID PRN (Reason: fever or pain) aspirin [Adult Low Dose Aspirin] 81 mg tablet,delayed release (DR/EC) 81 mg PO DAILY Hold Instructions: Resume on 01/06/20. nitroglycerin [Nitrostat] 0.4 mg tablet, sublingual 0.4 mg SUBLINGUAL Q5M PRN (Reason: Chest Pain) tamsulosin 0.4 mg capsule 0.4 mg PO QPM meloxicam 15 mg tablet 15 mg PO DAILY Qty: 30 2RF lisinopril 2.5 mg tablet 5 mg PO DAILY Qty: 90 3RF atorvastatin 40 mg tablet 40 mg PO DAILY meclizine 25 mg Tablet,Chewable 25 mg PO DAILY PRN (Reason: nauea) Discharge Orders: Discharge ED (Routine); Ordered 06/19/24 Ordered By: Tai Amanda Referrals: Pattie Esparza MD [Primary Care Provider] - Discharge Diet: Usual diet Discharge Activity: Increase activity as tolerated Patient Instructions: Opioid Safety, Pain Management Activity Restrictions/Additional Instructions: Thank you for choosing [facility] for your healthcare needs today. It is very important that you follow up as instructed or that you return to the Emergency Department should you have concerns or if your condition changes or worsens in any way. You were seen in the emergency room with complaints of chest pain. Cardiac enzymes and EKG did not show any acute changes. Recommend discharge home suspect some of this pain may be due to your chronic pain that you have had in the past. Follow-up with your primary care doctor as soon as you are able. Continue all your previously prescribed medications. Coding Level of Care Code ED Vp Revenue Cycle for Oscar Robles
[2024-06-19 12:56] VITALS: BP 193/112; PULSE 65; RESP 18; O2SAT 99
[2024-06-19 13:01] VITALS: BP 193/112; PULSE 67
--- NOTE | 2024-06-19 13:06 | ECG_ITS ---
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 Measurements Intervals [place] Rate: 65 P: 66 UT: 176 QRS: -76 QRSD: 138 T: 73 QT: 456 QTc: 475 Interpretive Statements SINUS RHYTHM WITH SINUS ARRHYTHMIA INTRAVENTRICULAR CONDUCTION DELAY [130+ ms QRS DURATION] POSSIBLE ANTERIOR MYOCARDIAL INFARCTION , OF INDETERMINATE AGE [30 ms Q WAVE IN V3/V4, OR R < 0.2 mV IN V4] Compared to ECG 06/19/2024 10:59:44 No significant changes Electronically Signed On 06-19-2024 19:37:56 FENCE BUILDER by Yoko Michael M.D. [email or web address]
[2024-06-19 14:36] LABS: Troponin 5 2HR 17.33 ng/L (0-15); Troponin 5 2HR Delta 0.33 ABS# (0-10)
[2024-06-19 14:44] VITALS: BP 181/94; PULSE 61; RESP 18; O2SAT 97
[2024-06-19 14:46] VITALS: RESP 16
[2024-06-19 15:24] VITALS: BP 181/94; PULSE 70; O2SAT 98
== END 2024-06-19 15:25 | disposition home or self-care (01) ==
PROVIDERS: Emergency Medicine; Emergency Provider Family Medicine; PCP Family Medicine
DX: R07.89 Other chest pain (principal); Z79.82 Long term (current) use of aspirin; Z87.891 Personal history of nicotine dependence; E78.5 Hyperlipidemia, unspecified; Z85.828 Personal history of other malignant neoplasm of skin; I25.2 Old myocardial infarction
CPT/HCPCS: 36415; 71045; 80053; 83690; 84484; 85025; 85610; 93005; 99285

== ENCOUNTER → 2024-08-25 13:19 | Outpatient (BNVA) | payer OTHER, SELFPAY | PROVIDERS: PCP Family Medicine; Visit Provider Specialist | DX: G43.711 Chronic migraine without aura, intractable, with status migrainosus (principal) | CPT/HCPCS: 64615; J0585 ==

== ENCOUNTER → 2024-09-05 12:00 | Outpatient (BNVA) | payer OTHER, SELFPAY | PROVIDERS: PCP Family Medicine; Visit Provider Internal Medicine | DX: I73.9 Peripheral vascular disease, unspecified (principal); I25.10 Atherosclerotic heart disease of native coronary artery without angina pectoris; I11.0 Hypertensive heart disease with heart failure; I50.9 Heart failure, unspecified; I48.0 Paroxysmal atrial fibrillation; E78.2 Mixed hyperlipidemia; G43.711 Chronic migraine without aura, intractable, with status migrainosus; Z87.891 Personal history of nicotine dependence | CPT/HCPCS: 99214 ==

== ENCOUNTER 2024-09-20 07:36 | Outpatient (CLI) | payer OTHER, SELFPAY ==
--- NOTE | 2024-09-20 08:00 | CTR_ITS ---
PROCEDURE INFORMATION: Exam: CTA Abdominal Aorta and Bilateral Lower Extremities (Run-off) With Contrast Exam date and time: 09/20/2024 8:31 AM Age: 78 years old Clinical indication: Other: Lower extremities; Prior surgery; Surgery date: 6+ months; Surgery type: RT iliac; Chronic bilateral hips and leg pains; Additional info: Pad TECHNIQUE: Imaging protocol: Computed tomographic angiography of the of the abdominal aorta, pelvis and bilateral lower extremities with contrast. 3D rendering (Not supervised by radiologist): MIP and/or 3D reconstructed images were created by the technologist. Radiation optimization: All CT scans at this facility use at least one of these dose optimization techniques: automated exposure control; mA and/or kV adjustment per patient size (includes targeted exams where dose is matched to clinical indication); or iterative reconstruction. Contrast material: OMNIPAQUE 350; Contrast volume: 125 ml; Contrast route: INTRAVENOUS (IV); COMPARISON: CT angio abd aorta runof [id number] 08/11/2023 9:54 AM RADIATION DOSE METRICS: Total DLP (mGy-cm): 1671.78 FINDINGS: Aorta: Mild calcified atherosclerotic changes are seen in the thoracic aorta. Celiac trunk and mesenteric arteries: Patent. Renal arteries: No occlusion or significant stenosis. Angiogram on the right side: The common iliac artery, hypogastric artery and external iliac artery are patent. Postsurgical changes are seen involving the common femoral artery. The [employer] is patent. SFA and profunda femoral artery are patent. There is occlusion of the proximal popliteal artery. Severe calcified atherosclerotic changes are seen in the popliteal artery. There is reconstitution of the distal popliteal artery through collateral. Proximal occlusion of the anterior tibial artery. Peroneal artery and posterior tibial artery provide two-vessel runoff. Angiogram on the left side: The common iliac artery, hypogastric artery and external iliac artery are patent. There is greater than 95 % stenosis involving the common femoral artery through severe calcified atherosclerotic changes. Profunda femoral artery is patent. There is long segmental occlusion of the SFA. There is reconstitution of the distal SFA through collaterals. There is 90% stenosis of the proximal popliteal artery secondary to large calcified atherosclerotic plaque. There is proximal occlusion of the anterior tibial artery. Peroneal artery and posterior tibial artery provides two-vessel runoff. Lungs: lingular nodule measuring 7 mm. Bilateral emphysematous changes are seen. Coronary arteries: Coronary calcifications are seen. Liver: There is a left hepatic cyst measuring 1 x 1 cm. Gallbladder and biliary ducts: Gallbladder is unremarkable. Pancreas: The pancreas is normal. Spleen: The spleen is normal. Adrenal glands: Adrenal glands are unremarkable. Kidneys and ureters: The kidneys are normal. Stomach and bowel: There is sigmoid colon diverticulosis. No dilated small bowel loop. Appendix: No evidence of appendicitis. Urinary bladder: Unremarkable. No mass. Reproductive: 5.6cm enlarged prostate. Intraperitoneal space: Unremarkable. No free air. No significant fluid collection. Lymph nodes: No lymphadenopathy. Bones/joints: Mild lumbar spine degenerative changes are seen. Soft tissues: Unremarkable. Other findings: Other findings. Other findings. Angiogram on the left side: CT/CT angio abd aorta runof [id number] IMPRESSION: 1. Persistent occlusion of proximal popliteal artery. Reconstitution at the distal popliteal artery. Two-vessel runoff. 2. New occlusion of left SFA. There is reconstitution of the distal SFA through collateral. Two-vessel runoff. Greater than 95% stenosis involving the [employer]. 90% stenosis involving the proximal popliteal artery. 3. Bilateral emphysematous changes are seen. 4. Coronary calcifications. 5. Mild calcified atherosclerotic changes are seen in the thoracic aorta. 6. Lingular nodule measuring 7 mm. For patients at low risk (minimal or absent history of smoking and of other known risk factors), recommend CT Chest at 6-12 months, then consider CT Chest at 18-24 months. For patients at high risk (history of smoking or of other known risk factors), recommend CT Chest at 6-12 months, then CT Chest at 18-24 months. (Reference: Shu) 7. Enlarged prostate. Correlation with patient's PSA level is advised. 8. Mild lumbar spine degenerative changes are seen. REFERENCES: Shu Escudero, et al. Guidelines for Management of Incidental Pulmonary Nodules Detected on CT Images: From the Fleischner Society 2017. Radiology. 2017;284(1):228-243.
[2024-09-20 08:35] LABS: Blood Urea Nitrogen 19 mg/dL (8-23)
[2024-09-20] MEDS: iohexol 350 mg/mL 500 mL Btl (per mL) IV (08:42)
== END 2024-09-20 07:37 | disposition home or self-care (01) ==
PROVIDERS: PCP Family Medicine; Visit Provider Internal Medicine
DX: I70.292 Other atherosclerosis of native arteries of extremities, left leg (principal); I70.201 Unspecified atherosclerosis of native arteries of extremities, right leg; M47.896 Other spondylosis, lumbar region; I70.0 Atherosclerosis of aorta; Z98.890 Other specified postprocedural states; R93.89 Abnormal findings on diagnostic imaging of other specified body structures; R91.1 Solitary pulmonary nodule; J43.9 Emphysema, unspecified; I25.10 Atherosclerotic heart disease of native coronary artery without angina pectoris; K76.89 Other specified diseases of liver; K57.30 Diverticulosis of large intestine without perforation or abscess without bleeding; N40.0 Benign prostatic hyperplasia without lower urinary tract symptoms
CPT/HCPCS: 75635; 82565; 84520

== ENCOUNTER → 2024-10-11 08:02 | Outpatient (BNVA) | payer OTHER, SELFPAY | PROVIDERS: PCP Family Medicine; Visit Provider Specialist | DX: M17.11 Unilateral primary osteoarthritis, right knee (principal); I73.9 Peripheral vascular disease, unspecified; I10 Essential (primary) hypertension; R58 Hemorrhage, not elsewhere classified | CPT/HCPCS: 36415; 73560; 73565; 80048; 85025; 85610; 99214 ==

== ENCOUNTER → 2024-10-16 08:14 | Outpatient (BNVA) | payer OTHER, SELFPAY | PROVIDERS: PCP Family Medicine; Visit Provider Specialist | DX: M12.812 Other specific arthropathies, not elsewhere classified, left shoulder (principal) | CPT/HCPCS: 20610; 73030; 99214; J1100; J2795; J3301; J9999 ==

== ENCOUNTER 2024-10-18 07:15 | Outpatient (CLI) | payer OTHER, SELFPAY ==
--- NOTE | 2024-10-16 10:03 | PC.NURSE ---
called chandrakant (person to notify) and told her per Dr. Ontiveros, patient needs to hold eliquis until after procedure on wednesday. Verbal acknowledgement obtained.
[2024-10-18] VITALS (19 sets, daily range): BP systolic 91–185; BP diastolic 55–102; PULSE 46–101; RESP 8–23; TEMP 36.6–36.9; O2SAT 92–100; BMI 29.2
--- NOTE | 2024-10-18 07:26 | XACV_ITS ---
Ht: 175 cm Wt: 90 kg BSA: 2.11 m2 Any Known Allergies: Other Gender: Male : 1945 Exam Type: Invasive Peripheral Vascular Procedure(s): Procedure Description: Peripheral Cath Diagnostic Procedure Procedure Description: Abdominal aortic angiography Procedure Description: Lower extremities' angiography Procedure Description: Intravascular lithotripsy of left lower extremity with shockwave balloon Procedure Description: Oribtal arterctomy Procedure Description: Balloon angioplasty Exam Priority: Routine Abdominal Diagnostic Findings Distal abdominal aorta is patent. Lower Extremity Diagnostic Findings INDICATION: 78-year-old man with past medical history of PAD has been having severe bilateral lifestyle limiting claudication. CTA showing severe peripheral artery disease. Plan for peripheral angiogram with possible intervention. Left lower extremity findings: Left common iliac artery is patent. Left external iliac artery is patent. Left internal iliac artery is patent. Left common femoral artery has distally heavily calcified 80 to 90% stenosis. Ostial left SFA is 100% occluded with reconstitution in the mid to distal vessel. Profunda artery is patent. Left popliteal artery is patent. Below the knee patient has two-vessel runoff with patent peroneal artery and posterior tibial artery. Anterior tibial artery is occluded in the midsegment.. Right lower extremity findings: Right common iliac artery is patent. Right external iliac artery is patent. Right internal iliac artery is patent. Right common femoral artery is patent. Right profunda artery is patent. Right SFA has distal total occlusion with reconstitution of mid to distal popliteal artery. It is a heavily calcified vessel. Below the knee has 2 vessel runoff.. Left Proximal Superficial Femoral Artery: 70% stenosis. Left Mid-longitudinal Superficial Femoral Artery: 70% stenosis. Left Distal Superficial Femoral Artery: 70% stenosis. Lower Extremity Interventional Findings Procedure detail: After diagnostic images were obtained, we switched short 6 Swazi sheath to long 45 cm sheath from right common femoral artery into left external iliac artery. Stenosis was crossed with a Glidewire with seeker support catheter. Glidewire was switched to Viper wire and orbital arthrectomy was performed. This was from common femoral artery into the distal SFA. We then performed balloon angioplasty with 6.0 x 200 mm Essex balloon. This was followed by intravascular lithotripsy of common femoral artery and proximal SFA using 6.0x80mm Shockwave balloon. We then performed balloon angioplasty of the distal left common femoral artery to proximal SFA with 7.0 x 60 mm Lutonix DCB. At this point angiogram was performed which showed excellent flow in the left lower extremity. Patient left the lab engineer with condition.. Left common Femoral Artery: 80% stenosis treated with AB Essex 35 SIFTER OPERATOR Catheter [id number], AB ARMADA 35 OTW [id number], Shockwave IVL 6.0mm X 80mm Balloon, and Lutonix DCB 7.0 X 60mm. Left proximal to Mid-longitudinal Superficial Femoral Artery: 100 % stenosis treated with AB ARMADA 35 OTW [id number] and [id number] ARMADA balloon. Left Distal Superficial Femoral Artery: 70% stenosis treated with AB ARMADA 35 OTW [id number], Shockwave IVL 6.0mm X 80mm Balloon, and Lutonix DCB 7.0 X 60mm. Conclusions There is severe left lower extremity disease. Status post successful revascularization with orbital arthrectomy, IVL lithotripsy shockwave balloon angioplasty and balloon angioplasty with drug-coated balloon.. Recommendations Eliquis and plavix. Staged intervention attempt of right lower extremity in 2-4 weeks. Hemodynamic Data Phase:Rest AO : 178.0 / 79.0 ( 115.0 ) @ 11:22:00 AM 233.0 / 108.0 ( 133.0 ) @ 11:57:00 AM 155.0 / 72.0 ( 103.0 ) @ 12:12:00 PM Access Site Site: Right Femoral artery Sheath Size: 6 Fr Hemost... Method: Suture Hemost... Success: Successful Procedure Details Findings Procedure Consent Obtained. Pre-Procedure Time Out. Identified patient by full name and date of as verbalized by the patient/guarantor. Does the consent match the physician's order: Yes. Accurate & Complete Informed Consent: Yes. Inpatient/Outpatient History & Physical on Chart: Yes. If H&P is completed, is and addenduem needed: No; If yes, is the addendum complete: N/A. Visualize and Verify Site with Patient/Guarantor: N/A. Relevant Radiology Images available: No. The risks, benefits, and alternatives of sedation and/or procedure were discussed by physician. The patient agrees to continue. Procedure started. Correct patient, site and procedure confirmed by cath team. Current diagnosis: PAD. PERRLA. Strong, equal hand bioinformatics research technician bilaterally. Lungs clear x 5 lobes. IV Site on Arrival: 20 gauge in the right anticubital. IV Fluids: 0.9% NaCl at KVO. 0 mL infused prior to lab engineer. Pre Procedural Pulses: bilateral radial was 3+. Pre Procedural Pulses: bilateral posterior tibial was Doppled. Pre Procedural Pulses: bilateral dorsalis pedis was Doppled. Oxygen started at 2liters/min via nasal canula. bilateral groins was prepped with chloroprep then draped in the usual sterile fashion. Physician notified. Baseline sample Acquired. HR: 61 BPM. Physician arrived. Admit Source: Out Patient. Physician scrubbed in. Time out performed with cath team. Lidocaine 1% infiltrated to the right groin. Arterial access obtained with micropuncture set. A 5Fr UF catheter in over wire. Abdominal aortogram performed in AP @ 10 mL/sec for a total of 30 mL. Glidewire in through UF catheter. UF repositioned. Glidewire out. Left external iliac selected and arteriogram with runoff performed @ 10 mL/sec for a total of 30 mL. DSA imaging performed below left popliteal to better visualize distal vessels. Glidewire in through UF catheter. Uf catheter out. 6fr short sheath exchanged for 6fr 45cm flexor over glidewire. Seeker catheter in over glidewire. Seeker advanced over glidewire to left popliteal. Glidewire out. Hand injection through seeker catheter using DSA imaging to better visualize distal vessels. 0.14 Peripheral viperwire in through seeker cathete to peroneal artery. Seeker catheter out. 1.5mm orbital atherectomy device in over wire to distal common femoral. Side port of sheath attached to Normal Saline flush at KVO to maintain patency. Atherectomy performed to distal common femoral. Atherectomy performed to distal common femoral. Atherectomy performed to proximal to mid SFA. Atherectomy performed to distal common femoral. Atherectomy device out over wire. Left common femoral selected and arteriogram with runoff performed @ 10 mL/sec for a total of 20 mL. Seeker in over viperwire. Viperwire out. Glidewire in through seeker catheter. Seeker advanced to popliteal. Glidewire out. Hand injection through the seeker catheter. Glidewire in through seeker to popliteal. Seeker out over glidewire. Balloon inserted over the wire to the proximal superficial femoral. Inflation number : 1 A AB Essex 35 SIFTER OPERATOR Catheter [id number] was prepped and advanced across the Proximal Superficial Femoral, Left , then inflated to 6 ADIN for 2:03 seconds. Balloon out over wire. Balloon inserted over the wire to the superficial femoral. Inflation number : 2 A AB ARMADA 35 OTW [id number] was prepped and advanced across the Proximal Superficial Femoral, Left , then inflated to 8 ADIN for 0:58 seconds. Inflation number: 1 The AB ARMADA 35 OTW [id number] was reinflated across the Mid Superficial Femoral, Left, to 8 ADIN for 0:54 seconds. Inflation number: 1 The AB ARMADA 35 OTW [id number] was reinflated across the Distal Superficial Femoral, Left, to 8 ADIN for 0:57 seconds. Balloon out over wire. Left common femoral selected and arteriogram with runoff performed @ 10 mL/sec for a total of 30 mL. Seeker in over glidewire. Glidewire out. Hand injection through seeker catheter. 300cm runthrough wire in through seeker catheter to peroneal artery. Seeker catheter out. Shockwave IVL balloon in over wire to distal common femoral and proximal SFA. IVL performed of left distal common femoral. Inflation number : 2 A Shockwave IVL 6.0mm X 80mm Balloon was prepped and advanced across the Distal Superficial Femoral, Left , then inflated to 4 ADIN for 0:32 seconds. IVL performed of left distal common femoral. Inflation number: 3 The Shockwave IVL 6.0mm X 80mm Balloon was reinflated across the Distal Superficial Femoral, Left, to 4 ADIN for 0:29 seconds. Inflation number: 3 The Shockwave IVL 6.0mm X 80mm Balloon was reinflated across the Proximal Superficial Femoral, Left, to 4 ADIN for 0:31 seconds. Inflation number: 4 The Shockwave IVL 6.0mm X 80mm Balloon was reinflated across the Distal Superficial Femoral, Left, to 4 ADIN for 0:30 seconds. IVL performed of left distal common femoral. Inflation number: 5 The Shockwave IVL 6.0mm X 80mm Balloon was reinflated across the Distal Superficial Femoral, Left, to 4 ADIN for 0:29 seconds. Inflation number: 6 The Shockwave IVL 6.0mm X 80mm Balloon was reinflated across the Distal Superficial Femoral, Left, to 0 ADIN for 0:28 seconds. Inflation number: 7 The Shockwave IVL 6.0mm X 80mm Balloon was reinflated across the Distal Superficial Femoral, Left, to 4 ADIN for 0:30 seconds. Inflation number: 4 The Shockwave IVL 6.0mm X 80mm Balloon was reinflated across the Proximal Superficial Femoral, Left, to 4 ADIN for 0:33 seconds. Balloon out over wire. Seeker catheter out over wire. Runthrough wire out. Glidewire in through seeker. Balloon inserted over the wire to the distal common femoral. Inflation number : 8 A Lutonix DCB 7.0 X 60mm was prepped and advanced across the Distal Superficial Femoral, Left , then inflated to 7 ADIN for 1:53 seconds. Inflation number: 5 The Lutonix DCB 7.0 X 60mm was reinflated across the Proximal Superficial Femoral, Left, to 7 ADIN for 1:01 seconds. Balloon out over wire. Left common femoral selected and arteriogram with runoff performed @ 10 mL/sec for a total of 30 mL. DSA imaging performed below left popliteal to visualize distal vessels. DSA imaging performed to common femoral. 6fr 45cm flexor exchanged for 6fr short sheath over glidewire. Wire out. ACT drawn. Results 237 seconds. Therapeutic limits - pre-heparin administration 90-150 seconds and monitoring heparin during a vascular procedure >250 seconds. Sheath injected in Right common femoral artery and runoff performed. Physician scrubbed out. A Suture was successful obtaining hemostatsis at the Right Femoral artery insertion site. Sheath(s) sutured into position with 2-0 silk and sterile 4x4's and Op-site applied over the site. No oozing or signs and symptoms of hematoma noted. Arterial sheath flushed and connected to tranducer and pressure bag with heparinized saline. Post Procedure: Pulses reassessed and unchanged. PERRLA. Strong, equal hand bioinformatics research technician bilaterally. No VTE prophylaxis required. Medication's Wasted: Lidocaine 1% = 2 mL. Medication's Wasted: Nitro = 49.7 mg. Medication's Wasted: Heparin = 4000 unit. Medication's Wasted: Other = Fentanyl 50 mcg. Total IV fluids: 95 mL. Post-op diagnosis: Severe common femoral stenosis, totally occluded SFA. Status post atherectomy, intravascular lithotrispy and balloon angioplasty. Complications: None. Estimated blood loss: 5mL-10mL. Responsiveness - Normal response to verbal stimuli; alert and oriented, PERRLA. Airway - Unaffected, no intervention required; spontaneous ventilation. Circulation: W/N/L, pulses unchanged. Nausea/Vomiting: No. Procedure completed. Patient transferred by stretcher to CPRU. Vital chart was stopped. Procedure Medications Start: 10:02 AM Stop: 10:02 AM Medication: Versed Amount: 1 mg Route: I.V. Start: 10:02 AM Stop: 10:02 AM Medication: Fentanyl Amount: 50 mcg Route: I.V. Start: 10:26 AM Stop: 10:26 AM Medication: Versed Amount: 1 mg Route: I.V. Start: 10:26 AM Stop: 10:26 AM Medication: Fentanyl Amount: 25 mcg Route: I.V. Start: 10:43 AM Stop: 10:43 AM Medication: Heparin Amount: 7000 units Route: I.V. Start: 10:47 AM Stop: 10:47 AM Medication: Fentanyl Amount: 25 mcg Route: I.V. Start: 11:03 AM Stop: 11:03 AM Medication: Versed Amount: 1 mg Route: I.V. Start: 11:03 AM Stop: 11:03 AM Medication: Fentanyl Amount: 25 mcg Route: I.V. Start: 11:03 AM Stop: 11:03 AM Medication: Hydralazine Amount: 10 mg Route: I.V. Start: 11:07 AM Stop: 11:07 AM Medication: Heparin Amount: 1000 units Route: I.V. Start: 11:15 AM Stop: 11:15 AM Medication: Versed Amount: 1 mg Route: I.V. Start: 11:32 AM Stop: 11:32 AM Medication: Fentanyl Amount: 25 mcg Route: I.V. Start: 11:40 AM Stop: 11:40 AM Medication: Heparin Amount: 1000 units Route: I.V. Start: 11:42 AM Stop: 11:42 AM Medication: Nitrogylcerin Amount: 300 mcg Route: I.A. Start: 11:50 AM Stop: 11:50 AM Medication: Plavix Amount: 600 mg Route: P.O. Start: 11:52 AM Stop: 11:52 AM Medication: Heparin Amount: 1000 units Route: I.V. I, the attending physician, have reviewed and verified all procedure medications. Yes, all medications given per verbal order History/Risk Factors Hypertension: Yes Dyslipidemia: Yes Peripheral Arterial Disease (PAD): Yes Myocardial Infarction (AR): Yes Obesity: No Renal Disease: No Tobacco Use: Former Prior Interventions PCI: Yes CABG: No Valve Surgery: No Date of PCI: 01/11/2015 Report Signatures Finalized by David Ontiveros MD on 11/03/2024 05:49 PM
[2024-10-18] MEDS: aspirin 325 mg Tablet PO (07:55)
[2024-10-18] MEDS: diphenhydrAMINE 50 mg Capsule PO (07:55)
--- NOTE | 2024-10-18 10:17 | W.PM.OPSFHP ---
Same Day Surgery H&P Indication for Procedure/HPI DATE OF PROCEDURE: October 18, 2024 CHIEF COMPLAINT/INDICATIONFOR SURGICAL PROCEDURE: Severe lifestyle limiting claudication PREOP DIAGNOSIS: Severe lifestyle limiting claudication PLANNED PROCEDURE: Operation Date: 10/18/24 08:30 Proposed Procedures p Peripheral Diagnostic - Periph Angio Bilat(Bilateral) - David Ontiveros M.D Possible pecutaneous intervention 78-year-old man with past medical history of PAD has been having severe bilateral lifestyle limiting claudication. CTA showing severe peripheral artery disease. Plan for peripheral angiogram with possible intervention. Medications/Allergies* Home Medications ?Medication ?Instructions ?Recorded ?Confirmed ?Type aspirin 81 mg tablet,delayed 81 mg PO DAILY 07/13/19 10/17/24 History release (Adult Low Dose Aspirin) nitroglycerin 0.4 mg sublingual 0.4 mg sublingual Q5M PRN Chest 07/13/19 10/17/24 History tablet (Nitrostat) Pain tamsulosin 0.4 mg capsule 0.4 mg PO QPM 07/13/19 10/17/24 History acetaminophen 500 mg tablet 1,000 mg PO QID PRN fever or pain 03/04/20 10/17/24 History (Tylenol Extra Strength) atorvastatin 40 mg tablet 40 mg PO DAILY 06/19/24 10/17/24 History meclizine 25 mg chewable tablet 25 mg PO DAILY PRN nauea 06/19/24 10/17/24 History apixaban 5 mg tablet (Eliquis) 5 mg PO BID 09/05/24 10/17/24 History Allergies/Adverse Reactions Allergy/AdvReac Type Severity Reaction Status Date / Time codeine Allergy Unknown Unconscious Verified 10/18/24 07:39 /syncope hydrochlorothiazide AdvReac hypotension Verified 10/18/24 07:39 Current Medications: Generic Name Dose Route Start Last Admin Trade Name Freq PRN Reason Stop Dose Admin Sodium Chloride 1,000 mls @ 50 mls/hr 10/18/24 07:26 10/18/24 07:33 Sodium Chloride 0.9% IV 10/19/24 03:25 Not Given .Q20H ONE Pertinent History/Comorbid Conditions* Medical History (Updated 06/27/24 @ 00:00 by NICHOLE Crooks) Atrial fibrillation History of nonmelanoma skin cancer History of ST elevation myocardial infarction (STEMI) Ascending aortic aneurysm History of colon polyps H/O ventricular tachycardia Imbalance Deviated nasal septum, congenital Nasal lesion Sensorineural hearing loss of left ear Deafness in right ear Hyperlipidemia Surgical History (Updated 11/17/21 @ 12:55 by Harini Morales DO) History of colonoscopy with polypectomy (~12/2019) History of cervical spinal surgery S/P foot surgery S/P cataract surgery S/P PTCA (percutaneous transluminal coronary angioplasty) History of colonoscopy with polypectomy (~2017) H/O foot surgery H/O heart artery stent H/O neck surgery H/O colonoscopy couple of years ago H/O esophagogastroduodenoscopy years ago Family History (Updated 12/21/19 @ 11:43 by Roxanne Good LPN) Heart disease Cancer Father Mother Stroke Denies family history of Anesthesia complication Bleeding disorder Social History Smoking and tobacco/nicotine status: former use of tobacco/nicotine (29 years ago) Alcohol intake: current Alcohol intake frequency: holidays/special occasions only Alcohol type: beer Substance/Drug Use: never Lives independently: Yes Marital status: Single Current occupational status: retired Pertinent Exam Findings alert, oriented x 3, clear to auscultation bilaterally and regular rate & rhythm Conscious Sedation Assessment PATIENT ASSESSED PRIOR TO SEDATION, WITH NO CHANGE NOTED: Yes AIRWAY EVAL/ANESTHESIA PLAN: normal airway, ASA III, Local Anesthesia, Risks, benefits & alternatives of sedation and/or procedure discussed and Patient agrees to continue as planned ADDITIONAL INFORMATION: Moderate sedation Recommendations Risks and benefits of procedure reviewed and Patient/family agree to proceed Surgery/Procedure today (Peripheral angiogram with possible intervention) Coding Level of Care Code Acute Code for Oscar Fwandrew
--- NOTE | 2024-10-18 11:59 | PM.PROC ---
Procedure Note: Date of procedure: 10/18/24 Pre-procedure diagnosis: Severe lifestyle limiting claudication Post-procedure diagnosis: other (Severe bilateral peripheral angiogram s/p successful revascularization with orbital arthrectomy, shockwave and balloon angioplasty) Procedure: Severe heavily calcified stenosis of left common femoral artery. Totally occluded Left SFA with reconstitution from collateral supply. Status post successful vascularization of left lower extremity with the orbital arthrectomy, intravascular lithotripsy shockwave therapy and balloon angioplasty. Right lower extremity has severe peripheral artery disease. Will undergo staged procedure in 3 to 4 weeks. Dual antiplatelet therapy Performing Provider: David Ontiveros Estimated blood loss (mL): 10 Complications: None Condition: stable Disposition: floor Coding Level of Care Code Acute Code for [facility] Fwd
--- NOTE | 2024-10-18 12:00 | SUR.EXTENDED ---
Received the patient back from the production laborer via bed s/p intervention of the left lower extremity. Patient drowsy but awakens easily to voice. A & 0 x 3. quality assurance monitor placed and vital signs obtained. Right Femoral access site with 6fr sheath intact. Groin soft with no bleeding or hematoma noted. Dressing dry and intact. Left PT and DP pulses per doppler. No other assessment changes noted from pre cath assessment. No concerns voiced at this time.
--- NOTE | 2024-10-18 12:35 | SUR.EXTENDED ---
Patient's blood pressure 83/57 with a retake of 91/55. HR 45-52, sinus. Both reported to Dr. Ontiveros in person. New orders received to adinister a fluid bolus and maintenance fluids. See MAR. No other assessemnt changes at this time.
--- NOTE | 2024-10-18 12:55 | SUR.EXTENDED ---
Telephone report called to YELENA Jimenez. Patient was then transferred via bed to room 107 with all belongings.
--- NOTE | 2024-10-18 13:58 | PC.NURSE ---
patient arrived on cardiac stepdown at 1312. Lesley Joshi RN gave report and both sql report writer and cath laboratory technician nurse assessed patient's sheath in right groin.
[2024-10-18 14:56] LABS: Partial Thromboplastin Time 86.8 SECONDS (23.9-36.7)
[2024-10-18 17:31] LABS: Partial Thromboplastin Time 29.4 SECONDS (23.9-36.7)
[2024-10-18] MEDS: tamsulosin 0.4 mg Capsule PO (17:32)
[2024-10-18] MEDS: sodium chloride 0.9% 1,000 ML 100 ML IV (17:32)
--- NOTE | 2024-10-18 18:29 | PC.NURSE ---
sheath removed at 1810. Pull was successful with no blood loss and no hematoma formation. Patient's up time will be 2229. Patient instructed on keeping leg straight and not getting up until 2229.
[2024-10-19 00:20] VITALS: BP 108/66; PULSE 59; RESP 15; TEMP 36.8; O2SAT 96
[2024-10-19] MEDS: sodium chloride 0.9% 1,000 ML 100 ML IV (03:32)
[2024-10-19 05:14] VITALS: BP 139/80; PULSE 67; RESP 17; TEMP 36.8; O2SAT 96
[2024-10-19 05:55] LABS: Basophils % 0.1 %; Eosinophils % 0.3 %; Hematocrit 32.3 % (37-53); Lymphocytes # 0.9 10^3/uL (0.8-4.8); Lymphocytes % 13.4 %; Mean Corpuscular HGB Conc 32.5 g/dL (30-55); Mean Corpuscular Hemoglobin 33.3 pg (27-33); Mean Corpuscular Volume 102.5 fl (82-101); Mean Platelet Volume 9.9 fL (7.4-10.4); Monocytes # 0.5 10^3/uL (0.2-0.9); Monocytes % 7.8 %; Neutrophils % 77.7 %; Nucleated Red Blood Cells % 0 %; Platelet Count 200 10^3/cmm (157-399); Red Blood Count 3.15 10^6/uL (3.85-5.65); Red Cell Distribution Width 13.8 % (12.1-15.1); White Blood Count 6.95 10^3/uL (3.29-11.43)
[2024-10-19 06:18] LABS: Anion Gap 15.4 (5-19); Blood Urea Nitrogen 26 mg/dL (8-23); Calcium 8.3 mg/dL (8.5-10.5); Carbon Dioxide 19 mmol/L (22-29); Chloride 110 mmol/L (98-107); Creatinine Clr Calc Pharmacy 72.5411; Glucose 112 mg/dL (65-115); Osmolality Calculated 296 mOsm/kg (285-295); Potassium 4.4 mmol/L (3.5-5.1); Sodium 140 mmol/L (136-145)
[2024-10-19 08:00] VITALS: BP 132/89; PULSE 72; RESP 16; TEMP 36.8; O2SAT 94
[2024-10-19] MEDS: clopidogrel 75 mg Tablet PO (08:37)
[2024-10-19] MEDS: apixaban 5 mg Tablet PO (08:37)
[2024-10-19] MEDS: lisinopril 5 mg Tablet PO (08:38)
[2024-10-19] MEDS: atorvastatin 40 mg Tablet PO (08:39)
--- NOTE | 2024-10-19 10:12 | P.DS_ITS ---
<Statement entered by David Ontiveros M.D - 10/21/24 19:03> Patient was cared for in conjunction with an advanced practice practitioner. I reviewed the chart and all pertinent data including imaging, telemetry, and laboratory results. I discussed the patient in detail with the advanced practice practitioner. Please see their note for agreed upon plan of care and results for the patient. Discharge Providers Date of Admission: 10/18/24 Date of Discharge: October 19, 2024 Attending Provider at Admission: Dr. Ontiveros Attending Provider at Discharge: David Ontiveros M.D Primary Care Provider: Pattie Esparza MD Reason for Visit Reason for Visit: I73.9 Brief History: This is an 78-year-old gentleman with a history of severe bilateral peripheral arterial disease. Previously he had underwent a vascular surgery procedure at [facility] for his right sided lower extremity PAD. He had a wound at that time and it is healed. Recently he developed bilateral lower extremity claudication. CTA with runoff was performed that showed persistent occlusion of proximal popliteal artery with reconstitution at the distal popliteal with two-vessel runoff on the right. No occlusion of the left SFA with reconstitution of the distal SFA through collateral with two-vessel runoff and greater than 95% stenosis in the common femoral. 90% stenosis in the proximal popliteal. Hospital Course Hospital Course He underwent a scheduled procedure that involved successful vascularization of the left lower extremity via orbital atherectomy, lithotripsy shockwave therapy and balloon angioplasty. The right lower extremity has severe peripheral arterial disease as well. He will need to undergo a staged procedure of the right lower extremity in 3 to 4 weeks. Patient tolerated procedure well without complications. He was discharged home in stable to improved condition Physical Exam Narrative: General: No apparent distress, healthy appearing, well nourished HENMT: normoceophalic Neck: No carotid bruit bilaterally Muskuloskeletal: Full ROM Respiratory: Normal respiratory effort, clear to auscultation bilaterally throughout all lung melendez, no use of accessory muscles Cardio: No JVD, regular rate, regular rhythm, S1 S2 normal, no murmurs, peripheral pulses 2+ radial palpated bilaterally, 2+ PT and DP bilaterally dopplered Extremities: Full ROM, normal, normal capillary refill, no cyanosis or edema Neuro: Alert and oriented x4, no focal motor deficits Psych: Affect normal, denies suicidal ideation, mental status grossly normal Skin: Right fem stick site clean, dry, intact w/o s/s of hematoma Discharge Data Studies Completed and Pending Pending at discharge Category Date Time Status 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 Routine Exams 10/18/24 07:26 Taken Laboratory Results WBC 6.95 10^3/uL (3.29-11.43) 10/19/24 05:08 RBC 3.15 10^6/uL (3.85-5.65) L 10/19/24 05:08 Hgb 10.50 g/dL (11.27-16.99) L 10/19/24 05:08 Hct 32.3 % (37-53) L 10/19/24 05:08 MCV 102.5 fl (82-101) H 10/19/24 05:08 MCH 33.3 pg (27-33) H 10/19/24 05:08 MCHC 32.5 g/dL (30-55) 10/19/24 05:08 RDW 13.8 % (12.1-15.1) 10/19/24 05:08 Plt Count 200 10^3/cmm (157-399) 10/19/24 05:08 MPV 9.9 fL (7.4-10.4) 10/19/24 05:08 Neut % (Auto) 77.7 % 10/19/24 05:08 Lymph % (Auto) 13.4 % 10/19/24 05:08 Steele % (Auto) 7.8 % 10/19/24 05:08 Eos % (Auto) 0.3 % 10/19/24 05:08 Baso % (Auto) 0.1 % 10/19/24 05:08 Neut # (Auto) 5.40 10^3/uL (1.8-7.7) 10/19/24 05:08 Lymph # (Auto) 0.9 10^3/uL (0.8-4.8) 10/19/24 05:08 Steele # (Auto) 0.5 10^3/uL (0.2-0.9) 10/19/24 05:08 Eos # (Auto) 0.0 10^3/uL (0.0-0.8) 10/19/24 05:08 Baso # (Auto) 0.0 10^3/uL (0.0-0.1) 10/19/24 05:08 Nucleated RBC % (auto) 0 % 10/19/24 05:08 Nucleated RBCs # 0.0 /100WBC 10/19/24 05:08 APTT 29.4 SECONDS (23.9-36.7) D 10/18/24 16:19 Sodium 140 mmol/L (136-145) 10/19/24 05:08 Potassium 4.4 mmol/L (3.5-5.1) 10/19/24 05:08 Chloride 110 mmol/L (98-107) H 10/19/24 05:08 Carbon Dioxide 19 mmol/L (22-29) L 10/19/24 05:08 Anion Gap 15.4 (5-19) 10/19/24 05:08 BUN 26 mg/dL (8-23) H 10/19/24 05:08 Creatinine 0.9 mg/dL (0.7-1.2) 10/19/24 05:08 GFR Calculation Not Reportable 10/19/24 05:08 Glucose 112 mg/dL (65-115) 10/19/24 05:08 Calculated Osmolality 296 mOsm/kg (285-295) H 10/19/24 05:08 Calcium 8.3 mg/dL (8.5-10.5) L 10/19/24 05:08 Procedures Performed Status post successful vascularization of left lower extremity with the orbital arthrectomy, intravascular lithotripsy shockwave therapy and balloon an gioplasty. Right lower extremity has severe peripheral artery disease. Will undergo staged procedure in 3 to 4 weeks. Vitals Last Vital Signs Temp 98.3 F 10/19/24 08:00 Pulse 72 10/19/24 08:00 Resp 16 10/19/24 08:00 BP 132/89 10/19/24 08:00 Pulse Ox 94 10/19/24 08:00 O2 Del Method Room Air 10/19/24 08:00 Discharge Plan Discharge Patient Disposition: Home Prescriptions: New clopidogrel 75 mg Tablet 75 mg PO DAILY Qty: 90 0RF Continued acetaminophen [Tylenol Extra Strength] 500 mg tablet 1,000 mg PO QID PRN (Reason: fever or pain) nitroglycerin [Nitrostat] 0.4 mg tablet, sublingual 0.4 mg SUBLINGUAL Q5M PRN (Reason: Chest Pain) tamsulosin 0.4 mg capsule 0.4 mg PO QPM Eliquis 5 mg tablet 5 mg PO BID meloxicam 15 mg tablet 15 mg PO DAILY Qty: 30 2RF atorvastatin 40 mg tablet 40 mg PO DAILY meclizine 25 mg Tablet,Chewable 25 mg PO DAILY PRN (Reason: nauea) lisinopril 2.5 mg Tablet 2.5 mg PO DAILY Discontinued aspirin [Adult Low Dose Aspirin] 81 mg tablet,delayed release (DR/EC) 81 mg PO DAILY Discharge Orders: Discharge Order (Routine); Ordered 10/19/24 Ordered By: Josefina Birmingham Referrals: Flavia Helton FNP [Nurse Practitioner] - 10/30/24 2:00 pm Diet: Low Cholesterol and Low Fat Activity: Limit activity as instructed Patient Instructions: Peripheral Vascular Stent Placement (DC), Peripheral Vascular Angioplasty (DC), Post Angiogram Home Care Instructions Activity Restrictions/Additional Instructions: Discussed with patient no heavy lifting 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 No driving for 3 days. Monitor for and report signs or symptoms of bleeding. Monitor for and report s/s of infection s uch as fever 101 or greater, swelling, redness or pain to the groin. F/U in the clinic in one week with CBC and BMP. Staged procedure of the right lower extremity in 3-4 weeks. Print Language: German Discharge Attestations Time Spent in Discharge Care*: less than 30 min Quality Metrics Clinical Quality Measures [ No reported AMI, CVA or VTE this stay] Coding Level of Care Code Acute Code for Ch[facility] Fwandrew
== END 2024-10-19 10:29 | disposition home or self-care (01) ==
LOC: CCL 07:17 → CSU 12:30
PROVIDERS: Nurse Practitioner Family; PCP Family Medicine; Visit Provider Internal Medicine
DX: I70.223 Atherosclerosis of native arteries of extremities with rest pain, bilateral legs (principal); I48.91 Unspecified atrial fibrillation; Z79.01 Long term (current) use of anticoagulants; I10 Essential (primary) hypertension; E78.5 Hyperlipidemia, unspecified; I25.2 Old myocardial infarction; Z87.891 Personal history of nicotine dependence; Z95.5 Presence of coronary angioplasty implant and graft; Z86.79 Personal history of other diseases of the circulatory system
CPT/HCPCS: 36415; 37225; 75625; 75716; 80048; 85025; 85347; 85730; 96374; 96375; 96376; 99152; 99153; C1724; C1725; C1769; C1887; C1894; C2623; C9766; J0360; J1644; J2250; J3010; J3490; J7030; J9999; Q0163; Q9967

== ENCOUNTER → 2024-10-24 09:35 | Outpatient (BNVA) | payer OTHER, SELFPAY | PROVIDERS: PCP Family Medicine; Visit Provider Podiatrist Foot & Ankle Surgery | DX: M21.41 Flat foot [pes planus] (acquired), right foot (principal); M21.42 Flat foot [pes planus] (acquired), left foot; M20.10 Hallux valgus (acquired), unspecified foot; M21.619 Bunion of unspecified foot; M20.41 Other hammer toe(s) (acquired), right foot; M20.42 Other hammer toe(s) (acquired), left foot; I73.9 Peripheral vascular disease, unspecified; M20.11 Hallux valgus (acquired), right foot; M20.12 Hallux valgus (acquired), left foot; M21.611 Bunion of right foot; M21.612 Bunion of left foot | CPT/HCPCS: 99204 ==

== ENCOUNTER → 2024-10-30 13:25 | Outpatient (BNVA) | payer OTHER, SELFPAY | PROVIDERS: PCP Family Medicine; Visit Provider Nurse Practitioner Family | DX: I73.9 Peripheral vascular disease, unspecified (principal); I10 Essential (primary) hypertension; E78.2 Mixed hyperlipidemia; R51.9 Headache, unspecified; Z87.891 Personal history of nicotine dependence; I25.2 Old myocardial infarction | CPT/HCPCS: 36415; 80048; 99214 ==

== ENCOUNTER 2024-11-15 08:22 | Outpatient (CLI) | payer OTHER, SELFPAY ==
[2024-11-15] VITALS (19 sets, daily range): BP systolic 103–180; BP diastolic 66–95; PULSE 54–66; RESP 11–20; TEMP 36.7–37.1; O2SAT 94–98; BMI 39.4
--- NOTE | 2024-11-15 | XACV_ITS ---
Ht: 175 cm Wt: 88 kg BSA: 2.10 m2 Any Known Allergies: Other Gender: Male : 1945 Exam Type: Invasive Peripheral Vascular Procedure(s): Procedure Description: Peripheral Cath Diagnostic Procedure Procedure Description: Lower extremities' angiography Procedure Description: Peripheral vascular Intervention Procedure Description: PV Balloon Exam Priority: Routine Lower Extremity Diagnostic Findings INDICATION: Severe lifestyle limiting claudication right lower extremity. Right Mid-longitudinal Popliteal Artery: 100% stenosis. Right lower extremity findings:Right common iliac artery is patent. Right external iliac artery is patent. Right internal iliac artery is patent. Right common femoral artery is patent. Right SFA has distal vessel total occlusion with total occlusion of popliteal artery with collaterals reconstituting distal popliteal artery. Anterior tibial artery is occluded. Patent peroneal artery and patent posterior tibial artery. . Lower Extremity Interventional Findings Right Mid-longitudinal Popliteal Artery:100% stenosis treated with Shockwave 6.0x80mm, BARD 5FR Lutinox [id number] drug coated balloon, and [id number] Supera Stent. Procedure detail: After diagnostic images were obtained, we used a Glidewire and seeker support catheter to cross the totally occluded popliteal artery. Patient had intravascular lithotripsy with 6.0 x 80 mm shockwave balloon. This was followed by dilation with [id number] Lutonix drug coated balloon. We then placed a 6.0 x 150 mm Supera stent from distal SFA to popliteal artery. At this time final angiogram was performed that showed excellent stent expansion and no residual stenosis. Glidewire was removed. 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 Conclusions Total occlusion of right distal SFA to popliteal artery status post successful revascularization with intravascular lithotripsy with shockwave balloon angioplasty and 1 stent. Right Mid-longitudinal Popliteal Artery was treated with two Balloon and Stent. Recommendations Dual antiplatelet therapy.. Outpatient cardiology follow up in 2 weeks. Hemodynamic Data Phase:Rest AO : 158.0 / 128.0 ( 99.0 ) @ 12:24:00 PM 92.0 / 58.0 ( 77.0 ) @ 12:35:00 PM 132.0 / 102.0 ( 92.0 ) @ 1:05:00 PM 122.0 / 60.0 ( 83.0 ) @ 1:10:00 PM Access Site Site: Left Femoral artery Sheath Size: 6 Fr Hemost... Method: Suture Hemost... Success: Successful Procedure Details Findings Procedure Consent Obtained. Admit Source: Out Patient. Pre-Procedure Time Out. Identified patient by full name and date of as verbalized by the patient/guarantor. Does the consent match the physician's order: Yes. Accurate & Complete Informed Consent: Yes. Inpatient/Outpatient History & Physical on Chart: Yes. If H&P is completed, is and addenduem needed: No; If yes, is the addendum complete: N/A. Visualize and Verify Site with Patient/Guarantor: N/A. Relevant Radiology Images available: N/A. The risks, benefits, and alternatives of sedation and/or procedure were discussed by physician. The patient agrees to continue. Procedure started. Physician arrived. PERRLA. Strong, equal hand advanced practice nurse psychotherapist bilaterally. Lungs clear x 5 lobes. IV Site on Arrival: 20 gauge in the left anticubital. IV Fluids: 0.9% NaCl at KVO. 0 mL infused prior to slab lifting supervisor. Pre Procedural Pulses: bilateral dorsalis pedis was 1+. Pre Procedural Pulses: bilateral radial was 2+. Pre Procedural Pulses: right posterior tibial was Doppled. Pre Procedural Pulses: left posterior tibial was 2+. Oxygen started at 2liters/min via nasal canula. bilateral groins was prepped with chloroprep then draped in the usual sterile fashion. Physician notified. Baseline sample Acquired. HR: 97 BPM. Physician scrubbed in. Immediate Pre-Procedure Time Out. Correct Patient: Yes; Correct Procedure: Yes; Correct Site: Yes; Correct Patient Position: Yes; Correct Supplies: Yes; Dried Flammable Prep: Yes; Blood Products Available: N/A;. Lidocaine 1% infiltrated to the left groin. Ultrasound being used to obtain arterial access. Arterial access obtained with micropuncture set. Wire unable to advance. Wire and needle out. Arterial access obtained with micropuncture set. A 5FrFr UF catheter in over the glidewire. Glidewire removed. Catheter seated in the right external iliac artery. Right external iliac selected and arteriogram with runoff performed @ 10 mL/sec for a total of 30 mL. Glidewire inserted. Wire out. Contrast hand injected. A 20 gauge IV was started in the left hand using aseptic technique. Glidewire inserted. The short 6Fr sheath exchanged for a 6Fr 45cm Flexor sheath. Lidocaine 1% infiltrated to the right groin. Right external iliac selected and arteriogram performed. Seeker inserted OTW and advanced to the right Peroneal trunk. Wire out. Contrast hand injected through the catheter. DSA performed of the right lower leg. 0.014 300cm Command wire inserted through the seeker catheter to the right posterior tibial artery. Seeker catheter out OTW. Inflation number : 1 A Shockwave 6.0x80mm was prepped and advanced across the Popliteal, Right , then inflated to 4 ADIN for 0:31 seconds. Inflation number: 2 The Shockwave 6.0x80mm was reinflated across the Popliteal, Right, to 4 ADIN for 0:32 seconds. Inflation number: 3 The Shockwave 6.0x80mm was reinflated across the Popliteal, Right, to 0 ADIN for 0:36 seconds. Inflation number: 4 The Shockwave 6.0x80mm was reinflated across the Popliteal, Right, to 4 ADIN for 0:53 seconds. Inflation number: 5 The Shockwave 6.0x80mm was reinflated across the Popliteal, Right, to 4 ADIN for 0:31 seconds. Inflation number: 6 The Shockwave 6.0x80mm was reinflated across the Popliteal, Right, to 4 ADIN for 0:10 seconds. Inflation number: 7 The Shockwave 6.0x80mm was reinflated across the Popliteal, Right, to 4 ADIN for 0:29 seconds. Inflation number: 8 The Shockwave 6.0x80mm was reinflated across the Popliteal, Right, to 4 ADIN for 0:32 seconds. Inflation number: 9 The Shockwave 6.0x80mm was reinflated across the Popliteal, Right, to 4 ADIN for 0:23 seconds. Inflation number: 10 The Shockwave 6.0x80mm was reinflated across the Popliteal, Right, to 4 ADIN for 0:36 seconds. Inflation number: 11 The Shockwave 6.0x80mm was reinflated across the Popliteal, Right, to 0 ADIN for 0:30 seconds. Shockwave balloon removed OTW. Sheath injected in Right common femoral artery and runoff performed. Seeker inserted OTW and advanced to the right popliteal. Glidewire inserted. Seeker catheter out OTW. Inflation number : 12 A BARD 5FR Lutinox 6.2u342ah drug coated balloon was prepped and advanced across the Popliteal, Right , then inflated to 7 ADIN for 2:03 seconds. Inflation number: 13 The BARD 5FR Lutinox 6.5n805ic drug coated balloon was reinflated across the Popliteal, Right, to 7 ADIN for 2:00 seconds. Balloon out. Sheath injected in Right common femoral artery and runoff performed. Seeker inserted OTW. Glidewire removed. Command wire inserted through the seeker catheter. Seeker catheter out OTW. Inflation Number : 14 A [id number] Supera Stent -Lot Number# _[id number] EXP: 04/03/2026 was prepped and advanced across the Popliteal, Right. The stent was deployed. Stent deployment system removed OTW. Sheath injected in Right common femoral artery and runoff performed. The 6Fr sheath exchanged for a short 6Fr sheath. A Left femoral angiogram was performed to determine safe placement of closure device. A Suture was successful obtaining hemostatsis at the Left Femoral artery insertion site. ACT drawn. Results 200 seconds. Therapeutic limits - pre-heparin administration 90-150 seconds and monitoring heparin during a vascular procedure >250 seconds. Sheath(s) sutured into position with 2-0 silk and sterile 4x4's and Op-site applied over the site. No oozing or signs and symptoms of hematoma noted. Post Procedure: Pulses reassessed and unchanged. PERRLA. Strong, equal hand advanced practice nurse psychotherapist bilaterally. No VTE prophylaxis required. Medication's Wasted: Other = Hydralazine 10 mg. Medication's Wasted: Other = Fentanyl 75mcg Versed 1 mg. Total IV fluids: 80 mL. Vital chart was stopped. Post-op diagnosis: Stent to Right Popliteal. Complications: None. Estimated blood loss: 5mL-10mL. Responsiveness - Normal response to verbal stimuli; alert and oriented, PERRLA. Airway - Unaffected, no intervention required; spontaneous ventilation. Circulation: W/N/L, pulses unchanged. Nausea/Vomiting: No. Procedure completed. Patient transferred by bed to 1st floor. Procedure Medications Start: 10:49 AM Stop: 10:49 AM Medication: Versed Amount: 1 mg Route: I.V. Start: 10:49 AM Stop: 10:49 AM Medication: Fentanyl Amount: 50 mcg Route: I.V. Start: 10:56 AM Stop: 10:56 AM Medication: Hydralazine Amount: 10 mg Route: I.V. Start: 11:07 AM Stop: 11:07 AM Medication: Fentanyl Amount: 50 mcg Route: I.V. Start: 11:18 AM Stop: 11:18 AM Medication: Versed Amount: 1 mg Route: I.V. Start: 11:18 AM Stop: 11:18 AM Medication: Fentanyl Amount: 50 mcg Route: I.V. Start: 11:21 AM Stop: 11:21 AM Medication: Heparin Amount: 1500 units Route: I.V. Start: : AM Stop: AM Medication: Fentanyl Amount: 50 mcg Route: I.V. Start: : AM Stop: AM Medication: Versed Amount: 1 mg Route: I.V. Start: : AM Stop: AM Medication: Heparin Amount: 5000 units Route: I.V. Start: : AM Stop: 45 AM Medication: Heparin Amount: 1000 units Route: I.V. Start: 11:54 AM Stop: :54 AM Medication: Versed Amount: 1 mg Route: I.V. Start: 12:14 PM Stop: 12:14 PM Medication: Heparin Amount: 1000 units Route: I.V. Start: 12:17 PM Stop: 12:17 PM Medication: Fentanyl Amount: 25 mcg Route: I.V. Start: 12:22 PM Stop: 12:22 PM Medication: Versed Amount: 1 mg Route: I.V. Start: 12:43 PM Stop: 12:43 PM Medication: Plavix Amount: 300 mg Route: P.O. I, the attending physician, have reviewed and verified all procedure medications. Yes, all medications given per verbal order History/Risk Factors Hypertension: Yes Dyslipidemia: Yes Peripheral Arterial Disease (PAD): Yes Myocardial Infarction (MA): Yes Obesity: No Renal Disease: No Tobacco Use: Former Prior Interventions PCI: Yes CABG: No Valve Surgery: No Date of PCI: 01/11/2015 Report Signatures Finalized by David Ontiveros MD on 12/03/2024 01:09 PM
[2024-11-15 09:11] LABS: Basophils % 0.6 %; Eosinophils # 0.1 10^3/uL (0.0-0.8); Eosinophils % 1.3 %; Hematocrit 33.9 % (37-53); Lymphocytes # 1.2 10^3/uL (0.8-4.8); Lymphocytes % 22.9 %; Mean Corpuscular HGB Conc 33.3 g/dL (30-55); Mean Corpuscular Hemoglobin 34.1 pg (27-33); Mean Corpuscular Volume 102.4 fl (82-101); Mean Platelet Volume 9.8 fL (7.4-10.4); Monocytes # 0.4 10^3/uL (0.2-0.9); Monocytes % 7.1 %; Neutrophils # 3.53 10^3/uL (1.8-7.7); Neutrophils % 67.5 %; Nucleated Red Blood Cells % 0 %; Platelet Count 175 10^3/cmm (157-399); Red Blood Count 3.31 10^6/uL (3.85-5.65); Red Cell Distribution Width 13.9 % (12.1-15.1); White Blood Count 5.23 10^3/uL (3.29-11.43)
[2024-11-15] MEDS: aspirin 325 mg Tablet PO (09:15)
[2024-11-15] MEDS: diphenhydrAMINE 50 mg Capsule PO (09:15)
[2024-11-15 09:27] LABS: Anion Gap 13.8 (5-19); Blood Urea Nitrogen 23 mg/dL (8-23); Calcium 8.7 mg/dL (8.5-10.5); Carbon Dioxide 25 mmol/L (22-29); Chloride 108 mmol/L (98-107); Creatinine Clr Calc Pharmacy 73.7092; Glucose 111 mg/dL (65-115); Osmolality Calculated 300 mOsm/kg (285-295); Potassium 3.8 mmol/L (3.5-5.1); Sodium 143 mmol/L (136-145)
--- NOTE | 2024-11-15 10:49 | W.PM.OPSUD ---
Surgery/Procedure H&P Update DATE OF PROCEDURE: November 15, 2024 DATE H&P PERFORMED: 10/30/24 H&P UPDATE INFORMATION: I have reviewed H&P completed within last 30 days, I have examined patient prior to procedure and No changes to prior documentation PREOP DIAGNOSIS: Severe lifestyle limiting claudication right lower extremity PRIMARY INDICATION FOR PROCEDURE: Severe lifestyle-limiting claudication of right lower extremity. Attempt for peripheral intervention PLANNED PROCEDURE: Operation Date: 11/15/24 10:00 Proposed Procedures p Peripheral Diagnostic - Periph Angio Unilateral(Not Applicable) - David Ontiveros M.D Peripheral intervention of right lower extremity PATIENT REASSESSED PRIOR TO SEDATION, WITH NO CHANGE NOTED: Yes PHYSICAL EXAM: alert, oriented x 3, clear to auscultation bilaterally and regular rate & rhythm AIRWAY EVAL/ANESTHESIA PLAN: normal airway, ASA III, Local Anesthesia, Risks, benefits & alternatives of sedation and/or procedure discussed and Patient agrees to continue as planned ADDITIONAL INFORMATION: Moderate sedation
--- NOTE | 2024-11-15 13:11 | PC.NURSE ---
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
[2024-11-15] MEDS: sodium chloride 0.9% 1,000 ML 50 ML IV (14:27)
--- NOTE | 2024-11-15 18:35 | PC.NURSE ---
Patient's left groining sheath is pulled at 1807. Hemostasis was obtained at 1807. Manual pressure is held x 20 minutes. No hematoma is noted. Vitals remained stable. Patient tolerated well. A dressing of 4 x 4 and tegaderm is applied. Patient is reeducated not to move his left leg or sit up for 6 hours.
--- NOTE | 2024-11-15 19:19 | P.PCN_ITS ---
Procedure Note: Date of procedure: 11/15/24 Pre-procedure diagnosis: Severe lifestyle limiting claudication of right lower extremity Post-procedure diagnosis: other (S/p successful revascularization with intravascular lithotripsy, balloon angioplasty and 1 stent placement) Procedure: Total occlusion of distal SFA to popliteal artery of right lower extremity s/p successful revascularization with intravascular lithotripsy shockwave balloon angioplasty and 1 stent placement Continue eliquis and plavix Performing Provider: David Ontiveros Estimated blood loss (mL): 10 Complications: None Condition: stable Disposition: floor Coding Level of Care Code Acute Code for [facility] Fwandrew
[2024-11-16 04:20] LABS: Basophils % 0.3 %; Eosinophils # 0.1 10^3/uL (0.0-0.8); Eosinophils % 1.1 %; Hematocrit 31.4 % (37-53); Lymphocytes # 1.1 10^3/uL (0.8-4.8); Lymphocytes % 17.4 %; Mean Corpuscular HGB Conc 32.2 g/dL (30-55); Mean Corpuscular Hemoglobin 33.8 pg (27-33); Mean Platelet Volume 10.2 fL (7.4-10.4); Monocytes # 0.5 10^3/uL (0.2-0.9); Monocytes % 7.1 %; Neutrophils # 4.74 10^3/uL (1.8-7.7); Neutrophils % 73.6 %; Nucleated Red Blood Cells % 0 %; Platelet Count 169 10^3/cmm (157-399); Red Blood Count 2.99 10^6/uL (3.85-5.65); White Blood Count 6.44 10^3/uL (3.29-11.43)
[2024-11-16 04:21] VITALS: BP 141/73; PULSE 59; RESP 16; TEMP 36.9; O2SAT 95
[2024-11-16 04:41] LABS: Anion Gap 11.9 (5-19); Blood Urea Nitrogen 20 mg/dL (8-23); Calcium 8.1 mg/dL (8.5-10.5); Carbon Dioxide 24 mmol/L (22-29); Chloride 109 mmol/L (98-107); Creatinine Clr Calc Pharmacy 80.5341; Glucose 122 mg/dL (65-115); Osmolality Calculated 296 mOsm/kg (285-295); Potassium 3.9 mmol/L (3.5-5.1); Sodium 141 mmol/L (136-145)
--- NOTE | 2024-11-16 07:47 | P.DS_ITS ---
<Statement entered by David Ontiveros M.D - 11/17/24 09:22> Patient was cared for in conjunction with an advanced practice practitioner.? I reviewed the chart and all pertinent data including imaging, telemetry, and laboratory results.? I discussed the patient in detail with the advanced practice practitioner.? Please see? their note for complete discharge summary, testing results and agreed upon plan of care for the patient. Discharge Providers Date of Admission: 11/15/2024 Date of Discharge: November 16, 2024 Attending Provider at Admission: David Ontiveros M.D Attending Provider at Discharge: David Ontiveros M.D Primary Care Provider: Pattie Esparza MD Reason for Visit Reason for Visit: I73.9 Brief History: Patient is a 79-year-old male with past medical history of hypertension, atrial fibrillation, CAD, hyperlipidemia, PAD. He underwent a orbital atherectomy with shockwave lithotripsy and balloon angioplasty on the left SFA last month. Plan was to perform staged intervention for the right leg. Hospital Course Hospital Course He was brought in yesterday for peripheral angiogram. The right distal SFA to popliteal was totally occluded, treated with intravascular lithotripsy and balloon angioplasty, with stent placement. He has done well overnight, blood pressures are stable. Plavix and Eliquis restarted. Renal function is stable. No complications with left femoral cath site. Plan to discharge home today. Follow-up in the cardiology clinic with [facility] in 7 to 10 days. Physical Exam Const: COMMON NORMALS: no acute distress and patient oriented x3 GENERAL APPEARANCE: cooperative ORIENTATION/CONSCIOUSNESS: Yes awake, Yes oriented to person, Yes oriented to place and Yes oriented to time Chest: COMMONS NORMALS: normal inspection of the chest and normal palpation of entire chest wall CHEST: Yes Symmetrical chest wall rise Resp: COMMON NORMALS: normal respiratory effort, No retractions, No use of accessory muscles and clear to auscultation bilaterally AUSCULTATION: clear to auscultation bilaterally Cardio: COMMON NORMALS: regular rate, regular rhythm, S1 normal heart sound present, S2 normal heart sound present, No gallops present (Cardio), No clicks present (Cardio), No murmurs present (Cardio) and No rub (Cardio) RATE: regular rate RHYTHM: regular rhythm HEART SOUNDS: S1 normal heart sound present and S2 normal heart sound present PERIPHERAL PULSES: radial pulses present positive right 2+ and femoral pulses present positive right 2+ Neuro: COMMON NORMALS: patient oriented x3 and moves all extremities SENSORIUM/ORIENTATION: Yes oriented to person, Yes oriented to place and Yes oriented to time Skin: WOUNDS: Yes surgical site (no hematoma palpable) Details: no odor Discharge Data Studies Completed and Pending Pending at discharge Category Date Time Status [employer] request for service Routine Exams 11/15/24 09:00 Ordered Laboratory Results WBC 6.44 10^3/uL (3.29-11.43) 11/16/24 03:24 RBC 2.99 10^6/uL (3.85-5.65) L 11/16/24 03:24 Hgb 10.10 g/dL (11.27-16.99) L 11/16/24 03:24 Hct 31.4 % (37-53) L 11/16/24 03:24 MCV 105.0 fl (82-101) H 11/16/24 03:24 MCH 33.8 pg (27-33) H 11/16/24 03:24 MCHC 32.2 g/dL (30-55) 11/16/24 03:24 RDW 14.0 % (12.1-15.1) 11/16/24 03:24 Plt Count 169 10^3/cmm (157-399) 11/16/24 03:24 MPV 10.2 fL (7.4-10.4) 11/16/24 03:24 Neut % (Auto) 73.6 % 11/16/24 03:24 Lymph % (Auto) 17.4 % 11/16/24 03:24 [place] % (Auto) 7.1 % 11/16/24 03:24 Eos % (Auto) 1.1 % 11/16/24 03:24 Baso % (Auto) 0.3 % 11/16/24 03:24 Neut # (Auto) 4.74 10^3/uL (1.8-7.7) 11/16/24 03:24 Lymph # (Auto) 1.1 10^3/uL (0.8-4.8) 11/16/24 03:24 [place] # (Auto) 0.5 10^3/uL (0.2-0.9) 11/16/24 03:24 Eos # (Auto) 0.1 10^3/uL (0.0-0.8) 11/16/24 03:24 Baso # (Auto) 0.0 10^3/uL (0.0-0.1) 11/16/24 03:24 Nucleated RBC % (auto) 0 % 11/16/24 03:24 Nucleated RBCs # 0.0 /100WBC 11/16/24 03:24 APTT 30.0 SECONDS (23.9-36.7) 11/15/24 17:21 Sodium 141 mmol/L (136-145) 11/16/24 03:24 Potassium 3.9 mmol/L (3.5-5.1) 11/16/24 03:24 Chloride 109 mmol/L (98-107) H 11/16/24 03:24 Carbon Dioxide 24 mmol/L (22-29) 11/16/24 03:24 Anion Gap 11.9 (5-19) 11/16/24 03:24 BUN 20 mg/dL (8-23) 11/16/24 03:24 Creatinine 0.9 mg/dL (0.7-1.2) 11/16/24 03:24 GFR Calculation Not Reportable 11/16/24 03:24 Glucose 122 mg/dL (65-115) H 11/16/24 03:24 Calculated Osmolality 296 mOsm/kg (285-295) H 11/16/24 03:24 Calcium 8.1 mg/dL (8.5-10.5) L 11/16/24 03:24 Vitals Last Vital Signs Temp 98.4 F 11/16/24 04:21 Pulse 59 L 11/16/24 04:21 Resp 16 11/16/24 04:21 BP 141/73 11/16/24 04:21 Pulse Ox 95 11/16/24 04:21 O2 Del Method Room Air 11/16/24 04:21 Discharge Plan Discharge Patient Disposition: Home Prescriptions: Continued acetaminophen [Tylenol Extra Strength] 500 mg tablet 1,000 mg PO QID PRN (Reason: fever or pain) nitroglycerin [Nitrostat] 0.4 mg tablet, sublingual 0.4 mg SUBLINGUAL Q5M PRN (Reason: Chest Pain) tamsulosin 0.4 mg capsule 0.4 mg PO QPM Eliquis 5 mg tablet 5 mg PO BID (DME) Custom insoles with orthopedic shoes See Rx Instructions .Route .MEDSUPPLY Qty: 1 0RF Rx Instructions: As directed by [facility] *Patient is hard hearing he is requesting for you to text him instead of calling. meloxicam 15 mg tablet 15 mg PO DAILY Qty: 30 2RF furosemide 40 mg Tablet 40 mg PO DAILY amiodarone 200 mg Tablet 200 mg PO DAILY galantamine 4 mg Tablet 4 mg PO BID Rx Instructions: administer with AM and PM meals gabapentin 300 mg Capsule 300 mg PO QPM allopurinol 300 mg Tablet 300 mg PO DAILY atorvastatin 80 mg tablet 40 mg PO DAILY aspirin [Aspir-81] 81 mg Tablet,Delayed Release (Dr/Ec) 81 mg PO DAILY pantoprazole 20 mg tablet,delayed release (DR/EC) 20 mg PO QAM lisinopril 2.5 mg Tablet 5 mg PO DAILY clopidogrel 75 mg Tablet 75 mg PO DAILY Qty: 90 0RF Discharge Orders: Discharge Order (Routine); Ordered 11/16/24 Ordered By: Flavia Helton Referrals: Josefina Birmingham NP [Nurse Practitioner, Cardiology] - 7-10 days Diet: Advance as tolerated Activity: Increase activity as tolerated Patient Instructions: Peripheral Vascular Stent Placement (DC), Post Angiogram Home Care Instructions Activity Restrictions/Additional Instructions: No lifting over 5 pounds for one week. Print Language: German Discharge Attestations Time Spent in Discharge Care*: less than 30 min Quality Metrics Clinical Quality Measures [ No reported AMI, CVA or VTE this stay] Coding Level of Care Code Acute Code for Monica Fwandrew
[2024-11-16 07:49] VITALS: BP 152/85; PULSE 64; RESP 18; TEMP 36.7; O2SAT 96
--- NOTE | 2024-11-16 08:29 | PC.PHAR ---
[facility] 7am 11/16/24
[2024-11-16] MEDS: clopidogrel 75 mg Tablet PO (09:17)
[2024-11-16] MEDS: apixaban 5 mg Tablet PO (09:17)
--- NOTE | 2024-11-16 09:30 | PC.NURSE ---
[facility] patient to schedule an follow-up appointment with 4 to 7 days.
== END 2024-11-16 09:49 | disposition home or self-care (01) ==
LOC: CCL 08:30 → CSU 18:37
PROVIDERS: Nurse Practitioner Family; PCP Family Medicine; Visit Provider Internal Medicine
DX: I70.211 Atherosclerosis of native arteries of extremities with intermittent claudication, right leg (principal); I10 Essential (primary) hypertension; E78.5 Hyperlipidemia, unspecified; I25.2 Old myocardial infarction; Z87.891 Personal history of nicotine dependence; I48.91 Unspecified atrial fibrillation; I25.10 Atherosclerotic heart disease of native coronary artery without angina pectoris; Z79.01 Long term (current) use of anticoagulants; Z79.82 Long term (current) use of aspirin; K21.9 Gastro-esophageal reflux disease without esophagitis; Z95.5 Presence of coronary angioplasty implant and graft
CPT/HCPCS: 36415; 75710; 80048; 85025; 85730; 96374; 96375; 99152; 99153; C1725; C1769; C1876; C1887; C1894; C2623; C9765; J0360; J1644; J2250; J3010; J7030; J9999; Q0163; Q9967

== ENCOUNTER → 2024-11-24 13:28 | Outpatient (BNVA) | payer OTHER, SELFPAY | PROVIDERS: PCP Family Medicine; Visit Provider Specialist | DX: G43.711 Chronic migraine without aura, intractable, with status migrainosus (principal) | CPT/HCPCS: 64615; 99213; J0585; J9999 ==

== ENCOUNTER → 2024-12-06 15:02 | Outpatient (BNVA) | payer OTHER, SELFPAY | PROVIDERS: PCP Family Medicine; Visit Provider Nurse Practitioner Family | DX: I25.10 Atherosclerotic heart disease of native coronary artery without angina pectoris (principal); I73.9 Peripheral vascular disease, unspecified; I10 Essential (primary) hypertension; I48.91 Unspecified atrial fibrillation; Z79.01 Long term (current) use of anticoagulants; Z79.02 Long term (current) use of antithrombotics/antiplatelets; Z79.82 Long term (current) use of aspirin; E78.5 Hyperlipidemia, unspecified; M17.9 Osteoarthritis of knee, unspecified; Z95.5 Presence of coronary angioplasty implant and graft; Z87.891 Personal history of nicotine dependence; I25.2 Old myocardial infarction; Z09 Encounter for follow-up examination after completed treatment for conditions other than malignant neoplasm | CPT/HCPCS: 99214 ==

== ENCOUNTER → 2024-12-15 09:41 | Outpatient (BNVA) | payer OTHER, SELFPAY | PROVIDERS: PCP Family Medicine; Visit Provider Specialist | DX: M17.11 Unilateral primary osteoarthritis, right knee (principal) | CPT/HCPCS: 20610; J1100; J2795; J3301; J9999 ==

== ENCOUNTER → 2025-02-15 14:59 | Outpatient (BNVA) | payer OTHER, SELFPAY | PROVIDERS: PCP Family Medicine; Visit Provider Internal Medicine | DX: I73.9 Peripheral vascular disease, unspecified (principal); I25.10 Atherosclerotic heart disease of native coronary artery without angina pectoris; I11.0 Hypertensive heart disease with heart failure; I50.9 Heart failure, unspecified; I48.91 Unspecified atrial fibrillation; Z79.01 Long term (current) use of anticoagulants; E78.5 Hyperlipidemia, unspecified; G43.711 Chronic migraine without aura, intractable, with status migrainosus; Z95.5 Presence of coronary angioplasty implant and graft; Z87.891 Personal history of nicotine dependence; I25.2 Old myocardial infarction | CPT/HCPCS: 99214 ==

== ENCOUNTER → 2025-02-27 14:16 | Outpatient (BNVA) | payer OTHER, SELFPAY | PROVIDERS: PCP Family Medicine; Visit Provider Nurse Practitioner Family | DX: L98.8 Other specified disorders of the skin and subcutaneous tissue (principal) | CPT/HCPCS: 11102; 17000; 69100; 99213 ==

== ENCOUNTER → 2025-03-01 12:49 | Outpatient (BNVA) | payer OTHER, SELFPAY | PROVIDERS: PCP Family Medicine; Visit Provider Specialist | DX: G43.711 Chronic migraine without aura, intractable, with status migrainosus (principal) | CPT/HCPCS: 64615; J0585; J9999 ==

== ENCOUNTER → 2025-03-14 10:29 | Outpatient (BNVA) | payer OTHER, SELFPAY | PROVIDERS: PCP Family Medicine; Visit Provider Dermatology | DX: L57.0 Actinic keratosis (principal); D04.22 Carcinoma in situ of skin of left ear and external auricular canal | CPT/HCPCS: 17282; 99214 ==

== ENCOUNTER → 2025-03-23 08:43 | Outpatient (BNVA) | payer OTHER, SELFPAY | PROVIDERS: PCP Family Medicine; Visit Provider Specialist | DX: M17.11 Unilateral primary osteoarthritis, right knee (principal) | CPT/HCPCS: 20610; J1100; J2795; J3301; J9999 ==

== ENCOUNTER → 2025-04-10 08:25 | Outpatient (BNVA) | payer OTHER, SELFPAY | PROVIDERS: PCP Family Medicine; Visit Provider Podiatrist Foot & Ankle Surgery | DX: I73.9 Peripheral vascular disease, unspecified (principal); L60.3 Nail dystrophy; M21.41 Flat foot [pes planus] (acquired), right foot; M21.42 Flat foot [pes planus] (acquired), left foot; M20.10 Hallux valgus (acquired), unspecified foot; M20.41 Other hammer toe(s) (acquired), right foot; M20.42 Other hammer toe(s) (acquired), left foot; Q82.8 Other specified congenital malformations of skin; I10 Essential (primary) hypertension; M20.11 Hallux valgus (acquired), right foot; M20.12 Hallux valgus (acquired), left foot; M21.611 Bunion of right foot; M21.612 Bunion of left foot | CPT/HCPCS: 11721; 17110 ==

== ENCOUNTER → 2025-06-07 13:37 | Outpatient (BNVA) | payer OTHER, SELFPAY | PROVIDERS: PCP Family Medicine; Visit Provider Specialist | DX: G43.711 Chronic migraine without aura, intractable, with status migrainosus (principal) | CPT/HCPCS: 64615; J0585; J9999 ==

== ENCOUNTER → 2025-06-22 09:21 | Outpatient (BNVA) | payer OTHER, SELFPAY | PROVIDERS: PCP Family Medicine; Visit Provider Specialist | DX: M17.11 Unilateral primary osteoarthritis, right knee (principal) | CPT/HCPCS: 20610; J1100; J2795; J3301; J9999 ==